=== PATIENT | male | born 1930 | race Caucasian/White ===

== ENCOUNTER 2018-12-01 14:02 | Inpatient (IN) | payer MEDICARE, OTHER ==
[2018-12-01] VITALS (9 sets, daily range): BP systolic 92–128; BP diastolic 53–88; PULSE 74–90; RESP 16–31; Ht 167.6 cm; Wt 75.0 kg
[~2018-12-01] VITALS: Ht 167.6 cm; Wt 75.0 kg
[2018-12-01] MEDS ORDERED: ACETAMINOPHEN 650 MG SUPP PR STA (14:15)
[2018-12-01] MEDS ORDERED: SODIUM CHLORIDE 0.9% 1L BAG IV* STA (14:15)
[2018-12-01] MEDS ORDERED: CEFEPIME 2GM/50 ML (PMX) 50 ML IVPB STA (14:15)
[2018-12-01] MEDS ORDERED: VANCOMYCIN 1 GM (PMX) 250 ML IVPB ONE (14:30)
--- NOTE | 2018-12-01 14:30 | ERD ---
ER Documentation Chief Complaint Chief Complaint BIBA FROM FACILITY D/T FEVERS, SOB, TACHYCARDIA HPI History is limited due to the patient's cognitive impairment and clinical condition is obtained entirely from EMS and review of half-way facility records. 88-year-old male history of hypertension, hyperlipidemia, severe dementia, coronary artery disease and osteoporosis presents to the ED via rescue ambulance for evaluation of fever and shortness of breath. This morning patient was found to be febrile given Tylenol orally but subsequently O2 saturations were in the 80s and he was noticeably dyspneic. Paramedics were called patient was placed on CPAP and transferred to the ED for further evaluation. Prior to this event patient was apparently in his usual state of health. Patient has no family and is a bermeo of the [facility]. FULL CODE STATUS. ROS Unobtainable except as per HPI due to the patient's cognitive impairment Medications Home Meds Reported Medications Ascorbic Acid (Vitamin C) 500 Mg Tab, 500 MG PO DAILY, TAB 12/01/18 Amlodipine Besylate* (Norvasc*) 2.5 Mg Tablet, 2.5 MG PO DAILY, TAB HOLD FOR SBP<110 HR<60 12/01/18 Multivit-Min/Iron Fum/Folic AC (Uzkmy-Eseoqyb-Ptdqwurx Tablet) 1 Each Tablet, 1 EACH PO DAILY, TAB 12/01/18 Magnesium Hydroxide* (Milk Of Magnesia*) 400 Mg/5 Ml Oral.susp, 30 ML PO Q24H for CONSTIPATION, ML 12/01/18 Mag Hydrox/Al Hydrox/Simeth (Maalox Advanced Suspension) 355 Ml Oral.susp, 30 ML PO Q4H 12/01/18 Ferrous Sulfate* (Ferrous Sulfate*) 325 Mg Tabec, 325 MG PO DAILY, TAB 12/01/18 Bisacodyl* (Dulcolax*) 5 Mg Tablet.dr, 10 MG PO Q24H PRN for CONSTIPATION, TAB 12/01/18 Divalproex Sodium* (Depakote* Sprinkle) 125 Mg Cap.sprink, 125 MG PO QHS, #90 CAP 12/01/18 Atorvastatin Calcium* (Atorvastatin Calcium*) 20 Mg Tablet, 20 MG PO QHS, #30 TAB 12/01/18 Acetaminophen* (Acetaminophen*) 325 Mg Tablet, 650 MG PO Q4H PRN for MILD PAIN LEVEL 1-3, #30 TAB AND TEMP 100F OR ABOVE 12/01/18 Allergies Allergies: Coded Allergies: No Known Allergy (Unverified , 12/01/18) PMhx/Soc Reviewed in chart. As per HPI. Resident of [facility] half-way facility. Hx Neurological Disorder: Yes (Severe vascular dementia) Hx Cardiac Disorders: Yes (Coronary artery disease) Hx Miscellaneous Medical Probl: Yes (Hyperlipidemia, osteoporosis) Hx Alcohol Use: No Hx Substance Use: No Hx Tobacco Use: No FmHx Unknown. Unobtainable due to the patient's cognitive impairment. Physical Exam Vitals Temp: 101.3. Pulse: 168. Respirations: 25. Blood pressure: 127/100. O2 saturation 100% on CPAP. Physical Exam Const: Severe distress Head: Atraumatic Eyes: Pupils equal react to light. Normal Conjunctiva ENT: Normal External Ears, Nose and Mouth. Mucous membranes are dry Neck: Supple. No JVD. No stridor. No meningismus. Resp: Breath sounds are diminished bilaterally with rare expiratory wheezing. No rales or rhonchi. Cardio: Tachycardic. Regular rate and rhythm, no murmurs Abd: Soft, non tender, non distended. Normal bowel sounds. No rebound or guarding. Skin: No petechiae or rashes Back: No midline or flank tenderness Ext: No cyanosis, or edema. No calf swelling or tenderness. Neur: Awake and alert. Uncooperative. Nonverbal. Plantar reflexes are downgoing. Physical examination is truncated due to the constraints imposed by the patient's cognitive impairment and clinical condition. Result Diagram: 12/06/18 0330 12/06/18 0330 Results 24 hrs Laboratory Tests Test 12/01/18 14:15 12/01/18 14:19 12/01/18 14:20 12/01/18 14:28 Blood Gas Blood arterial Specimen Source Arterial Blood 12/01/2018 2:50: Date Drawn 00 PM Arterial Blood 7.269 pH (Temp corrected ) Arterial Blood 46.4 mmhg pCO2 (Temp correct) Arterial Blood 220.0 mmHG pO2 (Temp corrected ) Arterial Blood 20.8 mmol/L HCO3 Arterial Blood -6.1 mmol/L Base Excess Arterial Blood 99.2 mmHG Oxygen Saturati on Leonardo Test ACCEPTAB Arterial Blood Right Radial Gas Puncture Site Arterial 0.3 % Blood Carboxyhe moglobin Arterial Blood 0.4 % Methemoglobin Blood Gas A-a 446.6 mmHg O2 Differential Oxyhemoglobin 98.5 % Percent Blood Gas 37.0 C Temperature Blood Gas 20.0 Respiration Rate Blood Gas 24 Actual Respiration Rat e Blood Gas MASK - BIPAP Modality FiO2 100.0 % Blood Gas 10 Pressure Support Blood Gas 15/5 IPAP/EPAP Ratio Blood Gas DR ABDALLA Critical Value Read Back Blood Gas RT Notified Whom Blood Gas 12/01/2018 3:05: Notified Time 00 PM White Blood 19.5 10^3/ul Count Red Blood Count 4.71 10^6/ul Hemoglobin 14.1 g/dl Hematocrit 44.9 % Mean 95.3 fl Corpuscular Volume Mean 29.9 pg Corpuscular Hemoglobin Mean 31.4 g/dl Corpuscular Hemoglobin Conc ent Red Cell 15.6 % Distribution Width Platelet Count 299 10^3/UL Mean Platelet 11.9 fl Volume Immature 0.700 % Granulocytes % Neutrophils % 88.8 % Lymphocytes % 7.1 % Monocytes % 3.1 % Eosinophils % 0.0 % Basophils % 0.3 % Nucleated Red 0.0 /100WBC Blood Cells % Immature 0.130 10^3/ul Granulocytes # Neutrophils # 17.3 10^3/ul Lymphocytes # 1.4 10^3/ul Monocytes # 0.6 10^3/ul Eosinophils # 0.0 10^3/ul Basophils # 0.1 10^3/ul Nucleated Red 0.0 10^3/ul Blood Cells # Prothrombin 15.3 Sec Time Prothrombin 1.2 Time Ratio INR 1.20 International Normalized Rati o Activated 34.2 Sec Partial Thrombo plast Time Sodium Level 145 mmol/L Potassium Level 4.6 mmol/L Chloride Level 107 mmol/L Carbon Dioxide 28 mmol/L Level Anion Gap 10 Blood Urea 46 mg/dl Nitrogen Creatinine 1.86 mg/dl Est Glomerular mL/min Filtrat Rate mL/min Glucose Level 141 mg/dl Calcium Level 9.7 mg/dl Total Bilirubin 0.8 mg/dl Direct 0.00 mg/dl Bilirubin Indirect 0.8 mg/dl Bilirubin Aspartate Amino 100 IU/L Transf (AST/SGO T) Alanine 50 IU/L Aminotransferas e (ALT/SGPT) Alkaline 205 IU/L Phosphatase Troponin I < 0.012 ng/ml Total Protein 8.5 g/dl Albumin 3.8 g/dl Globulin 4.70 g/dl Albumin/Globuli 0.80 n Ratio POC Venous 2.3 mmol/L Lactate Urine Color ALANA Urine Clarity TURBID Urine pH 5.0 Urine Specific 1.019 [place] Urine Ketones NEGATIVE mg/dL Urine Nitrite NEGATIVE mg/dL Urine Bilirubin NEGATIVE mg/dL Urine NEGATIVE mg/dL Urobilinogen Urine Leukocyte 3+ Dominique/ul Esterase Urine 65 /HPF Microscopic RBC Urine > 182 /HPF Microscopic WBC Urine Squamous FEW /HPF Epithelial Cell s Urine Bacteria MODERATE /HPF Urine 2+ mg/dL Hemoglobin Urine Glucose NEGATIVE mg/dL Urine Total 2+ mg/dl Protein B-Type 2100 PG/ML Natriuretic Peptide Valproic Acid < 10 ug/ml (Depakene) Level Test 12/01/18 16:26 Lactic Acid 1.9 mmol/L Level Current Medications Medications Dose Sig/Rogelio Start Time Status Last (Trade) Ordered Route PRN Stop Time Admin Dose Reason Admin Sodium 2,250 ml BOLUS OVER 2 12/01/18 DC 12/01/18 Chloride HOURS STAT 14:15 14:20 (NS) IV* 12/01/18 14:18 650 mg ONCE STAT 12/01/18 DC 12/01/18 Acetaminophen AR 14:15 14:25 (Tylenol 12/01/18 14:18 Supp) Cefepime HCl 50 ml @ ONCE STAT 12/01/18 DC 12/01/18 100 mls/hr IVPB 14:15 14:24 12/01/18 14:44 Vancomycin 250 ml @ ONCE ONCE 12/01/18 DC 12/01/18 HCl 125 mls/hr IVPB 14:30 15:00 12/01/18 16:29 Adenosine 2 ml @ ud STK-MED 12/01/18 DC ONCE .ROUTE 15:51 12/01/18 15:52 Adenosine 6 mg ONCE ONCE 12/01/18 DC 12/01/18 IV 16:00 16:00 12/01/18 16:01 Metoprolol 5 mg ONCE ONCE 12/01/18 DC 12/01/18 Tartrate IV 16:30 16:19 (Lopressor) 12/01/18 16:45 650 mg Q4H PRN 12/01/18 12/03/18 Acetaminophen PO MILD PAIN 16:30 17:07 (Tylenol LEVEL 1-3 Tab) Bisacodyl 10 mg Q24H PRN 12/01/18 (Dulcolax) PO 16:30 CONSTIPATION Magnesium 30 ml Q24H PO 12/01/18 12/04/18 Hydroxide 16:30 16:30 (Milk Of Mag) Sodium 1,000 ml @ [id number] IV 12/01/18 DC 12/02/18 Chloride 75 mls/hr 16:12 05:32 12/02/18 16:11 IV Flush 3 ml PER 12/01/18 (NS 3 ml) PROTOCOL IV 16:30 Ondansetron 4 mg Q6H PRN 12/01/18 HCl (Zofran IV 16:30 Inj) NAUSEA/VOMITI NG Docusate 100 mg Q12H PRN 12/01/18 Sodium PO 16:30 (Colace) .CONSTIPATION Magnesium 30 ml DAILY PRN 12/01/18 Hydroxide PO 16:30 (Milk Of Mag) .CONSTIPATION Procedures/MDM DOCUMENTS REVIEWED: ED nurse, main half-way facility records and EMS report EKG: Time: 14:57. Narrow complex tachycardia with occasional PVCs. Rate: 145. Right bundle branch block. No acute ST elevation or depression. My Interpretation IMAGING: PROCEDURE: XR Chest. CLINICAL INDICATION: Chest pain TECHNIQUE: Single frontal view of the chest was obtained COMPARISON: None FINDINGS: Atherosclerotic changes are seen in the aortic arch. The cardiac silhouette is unremarkable. There is patchy left basilar atelectasis. The lungs are otherwise clear. There is no pleural effusion or pneumothorax. The bones and soft tissue show no acute change. IMPRESSION: Patchy left basilar atelectasis. RPTAT:AAJJ Physician Arpan Date Time Electronically viewed and signed by Barrie Beard Physician on 12/01/2018 15:44 MC/ PROCEDURE: US Lower extremity Venous. CLINICAL INDICATION: Bilateral lower extremity pain and swelling, evaluate for DVT in this patient with chest pain TECHNIQUE: Multiple sonographic images of the bilateral lower extremity deep venous system were obtained utilizing grayscale, color-flow, compressive sonography and doppler imaging with augmentation. The images were reviewed on a PACS workstation. COMPARISON: None. FINDINGS: There is normal compressibility and flow within the bilateral common femoral, deep femoral, superficial femoral and popliteal veins. The deep veins of the calf were incompletely visualized. IMPRESSION: No sonographic evidence for deep venous thrombosis in the bilateral lower extremities. Ortiz Saini Physician Date Time Electronically viewed and signed by Ortiz Saini Physician on 12/01/2018 16:16 ML/ MEDICAL DECISION MAKIN-year-old male history of hypertension, hyperlipidemia, severe dementia, coronary artery disease and osteoporosis presents to the ED via rescue ambulance for evaluation of fever and shortness of breath. CBC significant for leukocytosis of 19.5 but no anemia or thrombocytopenia. Chemistry reveals elevated BUN/creatinine of 46/1.6 with hypernatremia 145 but no other electrolyte abnormalities. Urinalysis positive for pyuria consistent with urinary tract infection culture was pending. Chest x-ray remarkable for left basilar atelectasis but no acute infiltrates, effusions or congestive heart failure. Venous Doppler lower extremity negative for DVT. EKG showed narrow complex tachycardia with no acute ischemic changes. Etiology of the tachycardia was uncertain differential included A. fib/flutter and SVT. Adenosine 6 mg IV was given; he heart rate slowed down and the underlying rhythm appeared to be atrial fib/flutter which was treated with beta-blockers. Cardiology consultation from Dr. Anahy uribe was obtained in the ED. Admit to telemetry for further evaluation and management. . Patient's infectious symptoms have not stabilized and the patient is at risk of rapid decompensation. The patient will be admitted for careful hydration, antibiotic therapy, and infectious source control. Severe Sepsis criteria: Infectious source: UTI End organ damage indicated by: Lactate > 2.0 mmol/L Acute Resp Failure (sat < 92% w/o oxygen) Sepsis Management: Time of recognition of severe sepsis: 14:20 Within 3 hours of recognition: Blood cultures x 2 before broad-spectrum antibiotics: Yes 30 ml/kg NS bolus completed Initial lactate 2.3 mmol/L Repeat lactate 1.9 mmol/L Septic Shock Assessment: Any lactic acid > 4.0 No Persistent hypotension (SBP < 90 or 40 mmHg drop, MAP < 65) despite 30 mL/kg IV fluid bolus No A focused sepsis perfusion/reperfusion reassessment examination was performed post 30ml/kg bolus @16:20: Temp 100.8, BP 146/90, HR 149, RR 33, Pox 97% on BiPAP Persistent Hypotension Treatment: Comfort care No Hypotension caused by: pt. baseline, med-induced, erroneous value, condition other than infection No Refusal by patient/decision maker for: blood draw, IVF, Antibiotics, Pressors: No Central line Right subclavian Vasopressor started No I considered further perfusion assessment with CVP measurement, SCVO2, bedside ultrasound volume assessment, passive leg raise, trial of further fluid bolus and proceeded with normal saline fluid bolus. Central Line Placement by me: A time out was performed, appropriate hand hygiene was performed, the skin site was fully prepped and maximal sterile barrier technique was employed where the patient was sterilely draped, and the provider wore a mask and sterile gown and gloves. Anesthesia: 1% lidocaine locally Location: Subclavian Device: Multiple lumen Technique: Seldinger technique. Secured with suture. Results: Venous return from all ports with easy saline flush. No complications. Guide wire retrieved and disposed of. Chest X-ray 1V Interpreted by me: Central line in SVC, Normal soft tissue, No evidence of pneumothorax. Accepting Care Team Current data and ongoing care discussed. Time: 16:09. Care Transferred: Dr Ya Hewitt Rose Grading Supervisor(s): Dr Biggs Critical Care Time: 45 minutes Treatments/Evaluations: Close monitoring and treatment of unstable vital signs, cardiorespiratory, and neurologic status, while maintaining tight balance of fluid, respiratory, and cardiac interventions. This includes the administration of emergency fluid management while maintaining close respiratory support as well as the provision of immediate and broad-spectrum antibiotic therapy, while performing a simultaneous assessment for possible sources in order to direct targeted therapy. This time includes discussing the case with the patient and the patient's family. This time also includes the consideration for invasive and chemical support to prevent cardiopulmonary collapse. This time does not include all procedures stated elsewhere in this record. This time also includes reviewing old records, labs and radiological studies. This time includes examining and re-examining the patient. Additionally, this time also includes a rranging care with admitting and consulting physicians. ADDENDUM: Time: 17:30. While awaiting transfer to the intensive care unit patient became hypotensive unresponsive to aggressive fluid resuscitation and Levophed drip was started. Departure Diagnosis: Primary Impression: Septic shock Additional Impressions: Narrow complex tachycardia Urinary tract infection Urinary tract infection type: site unspecified Hematuria presence: without hematuria Qualified Codes: N39.0 - Urinary tract infection, site not specified Severe dementia Condition: Critical VALERIE ABDALLA MD Dec 01, 2018 14:30
[2018-12-01] MEDS ORDERED: ATOR20TA38 PO (14:35)
[2018-12-01] MEDS ORDERED: ACET325T45 PO (14:35)
[2018-12-01] MEDS ORDERED: DIVA125C16 PO (14:36)
[2018-12-01] MEDS ORDERED: BISA-57 PO (14:37)
[2018-12-01] MEDS ORDERED: FER325 PO (14:38)
[2018-12-01] MEDS ORDERED: MAGN400O19 PO (14:39)
[2018-12-01] MEDS ORDERED: MAG355OR14 PO (14:39)
[2018-12-01] MEDS ORDERED: MULT-876 PO (14:40)
[2018-12-01] MEDS ORDERED: AMLO2.5T2 PO (14:41)
[2018-12-01] MEDS ORDERED: ASC500 PO (14:42)
[2018-12-01] MEDS ORDERED: ADENOSINE 2 ML ONE (15:51)
[2018-12-01] MEDS ORDERED: ADENOSINE 3 MG/ML SYRINGE IV ONE (16:00)
[2018-12-01] MEDS ORDERED: ACETAMINOPHEN 325 MG TAB PO PRN (16:30)
[2018-12-01] MEDS ORDERED: METOPROLOL 5 MG INJ IV ONE (16:30)
[2018-12-01] MEDS ORDERED: DOCUSATE SODIUM 100 MG CAP PO PRN (16:30)
[2018-12-01] MEDS ORDERED: ONDANSETRON 4 MG INJ IV PRN (16:30)
[2018-12-01] MEDS ORDERED: BISACODYL (EC) 5 MG TAB PO PRN (16:30)
[2018-12-01] MEDS ORDERED: NACL 0.9% 3 ML SYG IV SCH (16:30)
[2018-12-01] MEDS ORDERED: MAGNESIUM HYDROXIDE 30ML CUP PO PRN (16:30)
[2018-12-01] MEDS: SOD CHLORIDE 0.9% 1,000 ML IV SCH (16:45)
--- NOTE | 2018-12-01 17:10 | CONS ---
Assessment/Plan Assessment/Plan Hospital Course (Demo Recall) Sepsis with possible early shock Borderline blood pressure/hypotension Tachycardia, likely atrial flutter/fibrillation Encephalopathy Renal dysfunction Respiratory failure Patient presented with altered mental status, respiratory failure, tachycardia and concern for sepsis Rhythm appears atrial flutter/fibrillation Of importance is treating patient sepsis, volume resuscitation, antibiotics Given patient currently with hypotension and concern for shock, would DC all antihypertensives Check echocardiogram Consultation Date/Type/Reason Admit Date/Time Type of Consult Cardiology Reason for Consultation Tachycardia Date/Time of Note DATE: 12/01/18 TIME: 17:04 Hx of Present Illness This is an 88-year-old male from [facility] who was brought to the emergency room secondary to altered mental status, respiratory distress, hypotension and tachycardia. Patient has been placed on BiPAP and receiving IV boluses. Patient has been tachycardic. Patient was given adenosine with decrease in heart rates but still with tachycardia. Cardiology condition was requested for assistance with management. Unable to be performed at the current time given patient's mental status Past Medical History Dementia Medical History: high cholesterol, hypertension Home Meds Reported Medications Ascorbic Acid (Vitamin C) 500 Mg Tab, 500 MG PO DAILY, TAB 12/01/18 Amlodipine Besylate* (Norvasc*) 2.5 Mg Tablet, 2.5 MG PO DAILY, TAB HOLD FOR SBP<110 HR<60 12/01/18 Multivit-Min/Iron Fum/Folic AC (Uoytb-Zxzjnlm-Ovokvtlm Tablet) 1 Each Tablet, 1 EACH PO DAILY, TAB 12/01/18 Magnesium Hydroxide* (Milk Of Magnesia*) 400 Mg/5 Ml Oral.susp, 30 ML PO Q24H for CONSTIPATION, ML 12/01/18 Mag Hydrox/Al Hydrox/Simeth (Maalox Advanced Suspension) 355 Ml Oral.susp, 30 ML PO Q4H 12/01/18 Ferrous Sulfate* (Ferrous Sulfate*) 325 Mg Tabec, 325 MG PO DAILY, TAB 12/01/18 Bisacodyl* (Dulcolax*) 5 Mg Tablet.dr, 10 MG PO Q24H PRN for CONSTIPATION, TAB 12/01/18 Divalproex Sodium* (Depakote* Sprinkle) 125 Mg Cap.sprink, 125 MG PO QHS, #90 CAP 12/01/18 Atorvastatin Calcium* (Atorvastatin Calcium*) 20 Mg Tablet, 20 MG PO QHS, #30 TAB 7/14/19 Acetaminophen* (Acetaminophen*) 325 Mg Tablet, 650 MG PO Q4H PRN for MILD PAIN LEVEL 1-3, #30 TAB AND TEMP 100F OR ABOVE 12/01/18 Medications Current Medications Acetaminophen (Tylenol Tab) 650 mg Q4H PRN PO MILD PAIN LEVEL 1-3; Start 12/01/18 at 16:30 Amlodipine Besylate (Norvasc) 2.5 mg DAILY PO ; Start 12/02/18 at 09:00 Ascorbic Acid (Vitamin C) 500 mg DAILY PO ; Start 12/02/18 at 09:00 Atorvastatin Calcium (Lipitor) 20 mg QHS PO ; Start 12/01/18 at 21:00 Bisacodyl (Dulcolax) 10 mg Q24H PRN PO CONSTIPATION; Start 12/01/18 at 16:30 Divalproex Sodium (Depakote Sprinkle) 125 mg QHS PO ; Start 12/01/18 at 21:00 Ferrous Sulfate (Ferrous Sulfate (Ec)) 325 mg DAILY PO ; Start 12/02/18 at 09:00 Magnesium Hydroxide (Milk Of Mag) 30 ml Q24H PO ; Start 12/01/18 at 16:30 Multivitamins/ Minerals (Theragran-M) 1 tab DAILY PO ; Start 12/02/18 at 09:00 Sodium Chloride 1,000 ml @ 75 mls/hr [id number] IV ; Start 12/01/18 at 16:12; Stop 12/02/18 at 16:11 IV Flush (NS 3 ml) 3 ml PER PROTOCOL IV ; Start 12/01/18 at 16:30 Ondansetron HCl (Zofran Inj) 4 mg Q6H PRN IV NAUSEA/VOMITING; Start 12/01/18 at 16:30 Docusate Sodium (Colace) 100 mg Q12H PRN PO .CONSTIPATION; Start 12/01/18 at 16:30 Magnesium Hydroxide (Milk Of Mag) 30 ml DAILY PRN PO .CONSTIPATION; Start 12/01/18 at 16:30 Enoxaparin Sodium (Lovenox) 30 mg DAILY SC ; Start 12/02/18 at 09:00 Cefepime HCl 50 ml @ 100 mls/hr DAILY IV ; Start 12/02/18 at 09:00 Allergies: Coded Allergies: No Known Allergy (Unverified , 12/01/18) Social History Other Social History From [facility] facility Exam/Review of Systems Vital Signs Vitals Vital Signs Date Temp Pulse Resp B/P (MAP) Pulse Ox O2 O2 Flow FiO2 Time Delivery Rate 12/01/18 98.5 134 35 106/80 98 BIPAP 16:30 (89) Exam Exam On BiPAP, not responding to name, altered Head: normocephalic Respiratory: other (Coarse breath sounds bilaterally, no wheezing) Cardiovascular: regular rate and rhythm (Tachycardic) Gastrointestinal: soft, bowel sounds, other (No grimacing with palpation) Extremities: other (No significant edema) Labs Result Diagram: 12/01/18 1419 12/01/18 1419 Results 24hrs Laboratory Tests Test 12/01/18 14:19 12/01/18 14:20 12/01/18 14:28 White Blood Count 19.5 H Red Blood Count 4.71 Hemoglobin 14.1 Hematocrit 44.9 Mean Corpuscular Volume 95.3 Mean Corpuscular Hemoglobin 29.9 Mean Corpuscular Hemoglobin Concent 31.4 L Red Cell Distribution Width 15.6 H Platelet Count 299 Mean Platelet Volume 11.9 H Immature Granulocytes % 0.700 H Neutrophils % 88.8 H Lymphocytes % 7.1 L Monocytes % 3.1 Eosinophils % 0.0 Basophils % 0.3 Nucleated Red Blood Cells % 0.0 Immature Granulocytes # 0.130 H Neutrophils # 17.3 H Lymphocytes # 1.4 Monocytes # 0.6 Eosinophils # 0.0 Basophils # 0.1 Nucleated Red Blood Cells # 0.0 Prothrombin Time 15.3 H Prothrombin Time Ratio 1.2 INR International Normalized Ratio 1.20 Activated Partial Thromboplast Time 34.2 Sodium Level 145 H Potassium Level 4.6 Chloride Level 107 Carbon Dioxide Level 28 Anion Gap 10 Blood Urea Nitrogen 46 H Creatinine 1.86 H Est Glomerular Filtrat Rate mL/min Glucose Level 141 Calcium Level 9.7 Total Bilirubin 0.8 Direct Bilirubin 0.00 Indirect Bilirubin 0.8 Aspartate Amino Transf (AST/SGOT) 100 H Alanine Aminotransferase (ALT/SGPT) 50 Alkaline Phosphatase 205 H Troponin I < 0.012 Total Protein 8.5 H Albumin 3.8 Globulin 4.70 H Albumin/Globulin Ratio 0.80 POC Venous Lactate 2.3 *H Urine Color ALANA Urine Clarity TURBID A Urine pH 5.0 Urine Specific [place] 1.019 Urine Ketones NEGATIVE Urine Nitrite NEGATIVE Urine Bilirubin NEGATIVE Urine Urobilinogen NEGATIVE Urine Leukocyte Esterase 3+ H Urine Microscopic RBC 65 H Urine Microscopic WBC > 182 H Urine Squamous Epithelial Cells FEW Urine Bacteria MODERATE Urine Hemoglobin 2+ H Urine Glucose NEGATIVE Urine Total Protein 2+ H B-Type Natriuretic Peptide 2100 H Valproic Acid (Depakene) Level < 10 L Imaging Imaging ECG with heart rates 140s 150s, QRS 116 ms, nonspecific ST abnormalities, after PVC it appears flutter/fib Telemetry reviewed in the emergency room, appears atrial flutter/fib Medications Medications Current Medications Acetaminophen (Tylenol Tab) 650 mg Q4H PRN PO MILD PAIN LEVEL 1-3; Start 12/01/18 at 16:30 Amlodipine Besylate (Norvasc) 2.5 mg DAILY PO ; Start 12/02/18 at 09:00 Ascorbic Acid (Vitamin C) 500 mg DAILY PO ; Start 12/02/18 at 09:00 Atorvastatin Calcium (Lipitor) 20 mg QHS PO ; Start 12/01/18 at 21:00 Bisacodyl (Dulcolax) 10 mg Q24H PRN PO CONSTIPATION; Start 12/01/18 at 16:30 Divalproex Sodium (Depakote Sprinkle) 125 mg QHS PO ; Start 12/01/18 at 21:00 Ferrous Sulfate (Ferrous Sulfate (Ec)) 325 mg DAILY PO ; Start 12/02/18 at 09:00 Magnesium Hydroxide (Milk Of Mag) 30 ml Q24H PO ; Start 12/01/18 at 16:30 Multivitamins/ Minerals (Theragran-M) 1 tab DAILY PO ; Start 12/02/18 at 09:00 Sodium Chloride 1,000 ml @ 75 mls/hr [id number] IV ; Start 12/01/18 at 16:12; Stop 12/02/18 at 16:11 IV Flush (NS 3 ml) 3 ml PER PROTOCOL IV ; Start 12/01/18 at 16:30 Ondansetron HCl (Zofran Inj) 4 mg Q6H PRN IV NAUSEA/VOMITING; Start 12/01/18 at 16:30 Docusate Sodium (Colace) 100 mg Q12H PRN PO .CONSTIPATION; Start 12/01/18 at 16:30 Magnesium Hydroxide (Milk Of Mag) 30 ml DAILY PRN PO .CONSTIPATION; Start 12/01/18 at 16:30 Enoxaparin Sodium (Lovenox) 30 mg DAILY SC ; Start 12/02/18 at 09:00 Cefepime HCl 50 ml @ 100 mls/hr DAILY IV ; Start 12/02/18 at 09:00 Manoj Biggs DO Dec 01, 2018 17:09
[2018-12-01] MEDS ORDERED: SOD CHLORIDE 0.9% 1,000 ML IV STA (17:20)
--- NOTE | 2018-12-01 17:54 | HP ---
Date/Time of Note Date/Time of Note DATE: 12/01/18 TIME: 17:16 Assessment/Plan VTE Prophylaxis SCD applied (from Nsg): Yes Pharmacological prophylaxis: LMWH Lines/Catheters IV Catheter Type (from Nrsg): Saline Lock Assessment/Plan Assessment/Plan 1. Severe sepsis secondary to UTI - patient was febrile upon presentation with tachycardia - UA noted and started on broad spectrum antibiotics - Gentle IVF started given elevated BNP - ID consulted for antibiotic recommendations - chávez cultures ordered - lactic acid normalized 2. Arrhythmia - seen on EKG - Cardiology consultation appreciated - ECHO ordered 3. MORTEZA - most likely secondary to ATN and prerenal - will continue IV hydration - will renally dose medications - renal US ordered 4. elevated BNP - does not appear fluid overloaded - ECHO ordered to assess EF 5. UTI - UA noted - urine culture ordered - broad spectrum antibiotic started - ID consulted 6. Acute respiratory distress - on BIPAP and wean as tolerated 7. HTN - hold antihypertensives given BP now running low 8. dementia 9. Depression - on depakote 10. Diet - will order speech evaluation 11. Code status - Full Code 12. Disposition - Admit to ICU for close monitoring given Severe sepsis with possible need for pressor support. Result Diagram: 12/01/18 1419 12/01/18 1419 Results 24hrs Laboratory Tests Test 12/01/18 14:19 12/01/18 14:20 12/01/18 14:28 12/01/18 16:26 White Blood Count 19.5 H Red Blood Count 4.71 Hemoglobin 14.1 Hematocrit 44.9 Mean Corpuscular 95.3 Volume Mean Corpuscular 29.9 Hemoglobin Mean Corpuscular 31.4 L Hemoglobin Concent Red Cell 15.6 H Distribution Width Platelet Count 299 Mean Platelet Volume 11.9 H Immature 0.700 H Granulocytes % Neutrophils % 88.8 H Lymphocytes % 7.1 L Monocytes % 3.1 Eosinophils % 0.0 Basophils % 0.3 Nucleated Red Blood 0.0 Cells % Immature 0.130 H Granulocytes # Neutrophils # 17.3 H Lymphocytes # 1.4 Monocytes # 0.6 Eosinophils # 0.0 Basophils # 0.1 Nucleated Red Blood 0.0 Cells # Prothrombin Time 15.3 H Prothrombin Time 1.2 Ratio INR International 1.20 Normalized Ratio Activated 34.2 Partial Thromboplast Time Sodium Level 145 H Potassium Level 4.6 Chloride Level 107 Carbon Dioxide Level 28 Anion Gap 10 Blood Urea Nitrogen 46 H Creatinine 1.86 H Est Glomerular Filtrat Rate mL/min Glucose Level 141 Calcium Level 9.7 Total Bilirubin 0.8 Direct Bilirubin 0.00 Indirect Bilirubin 0.8 Aspartate Amino 100 H Transf (AST/SGOT) Alanine 50 Aminotransferase (AL T/SGPT) Alkaline Phosphatase 205 H Troponin I < 0.012 Total Protein 8.5 H Albumin 3.8 Globulin 4.70 H Albumin/Globulin 0.80 Ratio POC Venous Lactate 2.3 *H Urine Color ALANA Urine Clarity TURBID A Urine pH 5.0 Urine Specific 1.019 [place] Urine Ketones NEGATIVE Urine Nitrite NEGATIVE Urine Bilirubin NEGATIVE Urine Urobilinogen NEGATIVE Urine Leukocyte 3+ H Esterase Urine Microscopic 65 H RBC Urine Microscopic > 182 H WBC Urine Squamous FEW Epithelial Cells Urine Bacteria MODERATE Urine Hemoglobin 2+ H Urine Glucose NEGATIVE Urine Total Protein 2+ H B-Type Natriuretic 2100 H Peptide Valproic Acid < 10 L (Depakene) Level Lactic Acid Level 1.9 HPI/ROS Admit Date/Time Admit Date/Time 12/01/18 Hx of Present Illness 88 yo M with PMH HTN, CAD, dementia, depression, HLD, and osteoarthritis presented from SNF for shortness of breath and fevers. Patient is currently on BIPAP and unable to obtain history given severe dementia. Patient is noted to have no family and a bermeo of the [facility]. History obtained from ER physician and reviewed of SNF records. Patient was found to be febrile this am and given Tylenol with mild improvement. He was also noted to be hypoxic and dyspneic. Patient was placed on CPAP and transferred to ER. In the ED patient was noted with fever and tachycardia. He was unable to give any history and mouth contracted open. Per records patient usually takes PO. Patient was given adenosine as well as beta carlos with no improvement in rate. He remained on BiPAP and BP was slightly low with concern for possible shock. ROS All 12 systems reviewed and pertinent positives as per HPI. All others negative. Unable to fully obtain ROS given altered mental status Subjective hx not possible: pt non-verbal, pt critical status Constitutional: disoriented Respiratory: shortness of breath; No wheezing PMH/Family/Social Past Medical History Medical History: coronary artery disease, high cholesterol, hypertension, other (dementia, osteoarthritis) Medications Current Medications Vancomycin HCl 250 ml @ 125 mls/hr ONCE ONCE IVPB Last administered on 12/01/18at 15:00; Start 12/01/18 at 14:30; Stop 12/01/18 at 16:29 Metoprolol Tartrate (Lopressor) 5 mg ONCE ONCE IV ; Start 12/01/18 at 16:30; Stop 12/01/18 at 16:31 Coded Allergies: No Known Allergy (Unverified , 12/01/18) Past Surgical History Past Surgical Hx: other (unknown) Family History Significant Family History: no pertinent family hx Social History Alcohol Use: other Smoking Status: Unknown if ever smoked Drug Use: other Exam/Review of Systems Vital Signs Vitals Vital Signs Date Temp Pulse Resp B/P (MAP) Pulse Ox O2 O2 Flow FiO2 Time Delivery Rate 12/01/18 101.3 14:25 12/01/18 156 29 127/100 100 14:09 (109) 12/01/18 Non 14:07 Rebreathe r Exam Exam General: Patient is lying in bed, nonverbal, BIPAP in place. not following commands HEENT: Atraumatic, normocephalic. The pupils are equal, round and reactive. Extraocular motor are intact, Neck: Supple with full range of motion. Chest: Nontender Lungs: Diminished bilaterally. no wheezing appreciated Heart: Normal S1-S2, irregular rate and rhythm. No murmur, S3, or S4 Abdomen: Soft , nontender, nondistended , bowel sounds are present. No guarding no rebound tenderness , No masses or organomegaly. No costovertebral temporal angle mass Extremities: Normal to inspection, no edema no cyanosis Neurologic: unable to assess Skin: no rashes or lesions appreciated. Additional Comments Home medications reviewed CATHERINE RENAE MD Dec 01, 2018 17:27
[2018-12-01] MEDS ORDERED: ALBUTEROL 0.083% (NEB) 2.5 MG/3 ML AMP HHN PRN (18:00)
[2018-12-01] MEDS ORDERED: NORepinephrine 8MG/250 ML (PMX 250 ML IV STA (18:35)
[2018-12-01] MEDS ORDERED: AMIODARONE 900 MG in DEXTROSE 5% 482 ML IV SCH (19:30)
[2018-12-01] MEDS ORDERED: AMIODARONE 150MG/D5W BOLUS 100 ML IV ONE (19:30)
[2018-12-01] MEDS ORDERED: LORAZEPAM 2 MG INJ IV ONE (20:00)
[2018-12-01] MEDS: MAGNESIUM HYDROXIDE 30ML CUP PO SCH (20:16)
[2018-12-01] MEDS ORDERED: ATORVASTATIN 20 MG TAB PO SCH (21:00)
[2018-12-01] MEDS ORDERED: DIVALPROEX SPRINKLE 125 MG CAP PO SCH (21:00)
--- NOTE | 2018-12-01 21:28 | CONS ---
DATE OF ADMISSION: 12/01/2018 DATE OF CONSULTATION: 12/01/2018 REASON FOR CONSULTATION: Antibiotic management. HISTORY OF PRESENT ILLNESS: Shlomo Daly is an 88-year-old male who is brought in from [facility] with fever, shortness of breath and tachycardia. His past problems include: 1. Hypertension. 2. Hyperlipidemia. 3. Severe dementia. 4. Coronary artery disease. 5. Osteoporosis. He presented to the emergency room for evaluation of fever and shortness of breath. He was found to be afebrile and was given Tylenol orally but his oxygen saturations were in the 80s and he was notabl y dyspneic. The patient was placed on CPAP by the paramedics, transferred to the ED for evaluation. He is a bermeo of the [facility] and is full code. PAST MEDICAL HISTORY: Essentially as outlined. FAMILY HISTORY: Noncontributory. SOCIAL HISTORY: He does not smoke, drink or abuse drugs. ALLERGIES: NONE TO PENICILLIN, SULFA OR FOODS. MEDICATIONS: Per chart. REVIEW OF SYSTEMS: As per HPI. PHYSICAL EXAMINATION: GENERAL: The patient is in severe respiratory distress. VITAL SIGNS: T-max of 101.3. His pulse is up to 168. His blood pressure is 127/100 and the patient was placed on BiPAP. SKIN: Without generalized rash. HEENT: Within normal limits. NECK: Supple. LYMPH NODES: None palpable. CHEST: Decreased breath sounds at the bases with expiratory wheezes. HEART: Tachycardic, regular rhythm without murmurs. ABDOMEN: Soft, nontender, without organosplenomegaly or masses. EXTREMITIES: Without cyanosis, clubbing, or edema. RECTAL AND GENITAL: Exams deferred. NEUROLOGIC: No focal neurological abnormalities. LABORATORY DATA: White count is 19.5, H and H of 14.1 and 44.9, platelet count 299,000 with 89% neut rophils. BUN and creatinine 46/1.86. Urinalysis shows 3+ leukocyte esterase and greater than 182 wh ite cells per high powered field. The patient was started on vancomycin and cefepime. His EKG showe d tachycardia with occasional PVCs and right bundle branch block. Chest x-ray shows patchy left basi lar atelectasis. Venous ultrasound shows no evidence of deep vein thrombophlebitis. IMPRESSION AND PLAN: The patient has essentially a urinary tract infection with sepsis. He may also have pneumonia or aspiration pneumonia. I concur with vancomycin and cefepime and a right central l ine was placed and is in good position. A renal ultrasound is unremarkable. We will continue him on vancomycin and cefepime. He should be no code and we can see whether we can do anything with the st ate with regards to his code status. In the meantime, he is going to go to the ICU. Dictated By: ELSY PIERRE MD, JD/ANTONIO Conf#: [id number] DID#: [id number]
[2018-12-01] MEDS ORDERED: VANCOMYCIN IV PER PHARMACY XX SCH (21:30)
[2018-12-01] MEDS ORDERED: SOD CHLORIDE 0.9% 500 ML IV ONE (21:30)
[2018-12-02] VITALS (44 sets, daily range): BP systolic 86–175; BP diastolic 55–102; PULSE 70–119; RESP 18–33
[2018-12-02] MEDS: PIPER-TAZO 3.375 GM IV (PMX) 100 ML IVPB SCH ×4 (01:11→21:42)
[2018-12-02] MEDS: SOD CHLORIDE 0.9% 1,000 ML IV SCH (05:32)
[2018-12-02] MEDS ORDERED: ASCORBIC ACID 500 MG TAB PO SCH (09:00)
[2018-12-02] MEDS ORDERED: FERROUS SULFATE (EC) 325 MG TAB PO SCH (09:00)
[2018-12-02] MEDS ORDERED: AMLODIPINE 2.5 MG TAB PO SCH (09:00)
[2018-12-02] MEDS ORDERED: CEFEPIME 1GM/50 ML (PMX) 50 ML IV SCH (09:00)
[2018-12-02] MEDS ORDERED: MULTIVITAMINS/MINERALS TAB PO SCH (09:00)
--- NOTE | 2018-12-02 09:10 | PN ---
Date/Time of Note Date/Time of Note DATE: 12/02/18 TIME: 09:10 Objective Vitals Vital Signs Date Temp Pulse Resp B/P (MAP) Pulse Ox O2 O2 Flow FiO2 Time Delivery Rate 12/02/18 95 32 167/102 93 08:00 (123) 12/02/18 101.4 08:00 12/02/18 Nasal 3.0 07:00 Cannula 12/01/18 50 21:50 Intake and Output 12/01/18 12/01/18 12/02/18 1515:00 23:00 07:00 IntakeIntake Total 50 ml 3882.3 ml 1445 ml OutputOutput Total 210 ml 585 ml BalanceBalance 50 ml 3672.3 ml 860 ml Results Result Diagram: 12/02/18 0500 12/02/18 0500 Medications Medications Current Medications Acetaminophen (Tylenol Tab) 650 mg Q4H PRN PO MILD PAIN LEVEL 1-3; Start 12/01/18 at 16:30 Bisacodyl (Dulcolax) 10 mg Q24H PRN PO CONSTIPATION; Start 12/01/18 at 16:30 Divalproex Sodium (Depakote Sprinkle) 125 mg QHS PO ; Start 12/01/18 at 21:00 Ferrous Sulfate (Ferrous Sulfate (Ec)) 325 mg DAILY PO ; Start 12/02/18 at 09:00 Magnesium Hydroxide (Milk Of Mag) 30 ml Q24H PO ; Start 12/01/18 at 16:30 Multivitamins/ Minerals (Theragran-M) 1 tab DAILY PO ; Start 12/02/18 at 09:00 Sodium Chloride 1,000 ml @ 75 mls/hr [id number] IV Last administered on 12/02/18at 05:32; Admin Dose 75 MLS/HR; Start 12/01/18 at 16:12; Stop 12/02/18 at 16:11 IV Flush (NS 3 ml) 3 ml PER PROTOCOL IV ; Start 12/01/18 at 16:30 Ondansetron HCl (Zofran Inj) 4 mg Q6H PRN IV NAUSEA/VOMITING; Start 12/01/18 at 16:30 Docusate Sodium (Colace) 100 mg Q12H PRN PO .CONSTIPATION; Start 12/01/18 at 16:30 Magnesium Hydroxide (Milk Of Mag) 30 ml DAILY PRN PO .CONSTIPATION; Start 12/01/18 at 16:30 Enoxaparin Sodium (Lovenox) 30 mg DAILY SC ; Start 12/02/18 at 09:00 Albuterol (Proventil 0.083% (Neb)) 2.5 mg Q2H RESP THERAPY PRN HHN SHORTNESS OF BREATH; Start 12/01/18 at 18:00 Norepinephrine 250 ml @ 7.5 mls/hr ONCE STAT IV Last administered on 12/01/18 at 18:50; Admin Dose 7.5 MLS/HR; Start 12/01/18 at 18:35; Stop 12/03/18 at 03:54 Amiodarone HCl 900 mg/Dextrose 500 ml @ 0 mls/hr Q0M IV Last administered on 12/01/18at 20:02; Admin Dose 33.3 MLS/HR; Start 12/01/18 at 19:30 Piperacillin Sod/ Tazobactam Sod 100 ml @ 200 mls/hr Q8 IVPB Last administered on 12/02/18at 06:40; Admin Dose 200 MLS/HR; Start 12/01/18 at 22:00 Vancomycin HCl (Vanco Iv Per Pharmacy) VANCOMYCIN PER PHARMACY PER PROTOCOL XX ; Start 12/01/18 at 21:30 Vancomycin HCl 250 ml @ 125 mls/hr Q24H IVPB ; Start 12/02/18 at 12:00 VTE Prophylaxis SCD applied (from Nsg): Yes Lines/Catheters IV Catheter Type: Early in Place: Yes Cont'd early catheter reason: terminal illness/intractable pain Assessment/Plan Hospital Course Subjective Patient still encephalopathic, now off BiPAP and pressors, on nasal cannula with mouth wide open, nursing staff stated that they had to do significant oral hygiene care including mucus secretions suctioning. Objective Physical exam General: Patient is laying in bed, on nasal cannula Mentation: Patient is arousable but not oriented Head: Normocephalic atraumatic Eyes: EOMI, but very difficult to assess as patient tightly close his eyes Neck: Supple, nontender, midline Respiratory: Coarse to auscultation bilaterally Cardiovascular: regular rate, no obvious murmurs Gastrointestinal: non-tender to palpation, bowel sounds heard. Neurological: Moves all extremities spontaneously to noxious stimuli but no coordinated movement for now Skin: No new skin lesions Assessment/Plan septic shock secondary to UTI/?PNA -IV antibiotic, broad-spectrum, infectious disease on board -Pending culture results -Now off pressors Acute on chronic encephalopathy -Patient's baseline is unknown, staff will contact fdc facility -Patient likely was able to feed himself as he does not have a PEG tube however will confirm -Patient also probably has moderate to severe dementia as there is likely a conservator involved -This is likely due to above septic shock however will get CT head once stable Arrhythmia, likely afib-aflutter - seen on EKG - Cardiology consultation appreciated - ECHO ordered MORTEZA -Resolved -Continue volume status, monitor closely, if worsens will consult nephrology elevated BNP -Patient's chest x-ray does show some pulmonary edema, will defer to cardiology for the recommendations -Pulmonology also on board UTI - UA noted - urine culture ordered - broad spectrum antibiotic started - ID consulted Acute respiratory distress -Now off BiPAP -Pulmonology consulted, HTN - hold antihypertensives given BP was low due to septic shock, restart when blood pressure is more stable dementia -Staff will confirm with fdc facility the degree of dementia Depression? - on depakote, will cont IV Diet - will order speech evaluation -NG tube in the meantime as patient is still encephalopathic Code status - Full Code Disposition -Continue ICU care, patient just off pressors, work-up pending -More than 40 minutes of critical care time was spent on this evaluation QASIM HWANG Dec 02, 2018 09:10
[2018-12-02] MEDS ORDERED: ACETAMINOPHEN 1000MG/100ML IV 100 ML IVPB PRN (09:30)
--- NOTE | 2018-12-02 09:34 | CONS ---
Assessment/Plan Assessment/Plan Assessment/Plan (Daily) Chest x-ray was reviewed from admission which is showing mild CHF. UA is grossly positive for UTI. Patient is currently on amiodarone drip at 0.5 mg/min. Assessment and recommendations; 1. Patient admitted for sepsis due to UTI. Currently on appropriate antimicrobial regimen. 2. History of apparent dementia. 3. Mild CHF. 4. History of seizure disorder. 5. Acute renal injury with improving renal function. 6. Cardiac arrhythmia. Patient currently in sinus rhythm. 7. Interval resolution of hypotension. Patient off Levophed. Continue current supportive care. Obtain follow-up chest x-ray in 24 hours. To new IV hydration. skilled nursing to be called for information regarding patient's baseline mental status. Consultation Date/Type/Reason Admit Date/Time 12/01/18 Date of Consultation: Dec 02, 2018 Type of Consult Pulmonary/critical care Patient is a 88-year-old male who was transferred over from [facility] to the hospital because of altered mental status. Patient has been diagnosed with sepsis due to UTI as well as cardiac arrhythmia. Was a time I saw him in ICU, patient is on nasal cannula but is noncommunicative. History is been obtained from medical records. Patient did not appear to be in any distress. Past medical history; 1. Apparent dementia. 2. Anemia 3. History of seizure disorder. Medications; reviewed. Allergies; none. Social history, family history, occupational history is are not available. Review of system; unable to be obtained. General exam; elderly male, noncommunicative. Currently no distress. Date/Time of Note DATE: 12/02/18 TIME: 09:31 Past Medical History Medical History: coronary artery disease, high cholesterol, hypertension, other (dementia, osteoarthritis) Home Meds Reported Medications Ascorbic Acid (Vitamin C) 500 Mg Tab, 500 MG PO DAILY, TAB 12/01/18 Amlodipine Besylate* (Norvasc*) 2.5 Mg Tablet, 2.5 MG PO DAILY, TAB HOLD FOR SBP<110 HR<60 12/01/18 Multivit-Min/Iron Fum/Folic AC (Mykzc-Uocjpln-Iyqsbutu Tablet) 1 Each Tablet, 1 EACH PO DAILY, TAB 12/01/18 Magnesium Hydroxide* (Milk Of Magnesia*) 400 Mg/5 Ml Oral.susp, 30 ML PO Q24H for CONSTIPATION, ML 12/01/18 Mag Hydrox/Al Hydrox/Simeth (Maalox Advanced Suspension) 355 Ml Oral.susp, 30 ML PO Q4H 12/01/18 Ferrous Sulfate* (Ferrous Sulfate*) 325 Mg Tabec, 325 MG PO DAILY, TAB 12/01/18 Bisacodyl* (Dulcolax*) 5 Mg Tablet.dr, 10 MG PO Q24H PRN for CONSTIPATION, TAB 12/01/18 Divalproex Sodium* (Depakote* Sprinkle) 125 Mg Cap.sprink, 125 MG PO QHS, #90 CAP 12/01/18 Atorvastatin Calcium* (Atorvastatin Calcium*) 20 Mg Tablet, 20 MG PO QHS, #30 TAB 12/01/18 Acetaminophen* (Acetaminophen*) 325 Mg Tablet, 650 MG PO Q4H PRN for MILD PAIN LEVEL 1-3, #30 TAB AND TEMP 100F OR ABOVE 12/01/18 Medications Current Medications Acetaminophen (Tylenol Tab) 650 mg Q4H PRN PO MILD PAIN LEVEL 1-3; Start 12/01/18 at 16:30 Bisacodyl (Dulcolax) 10 mg Q24H PRN PO CONSTIPATION; Start 12/01/18 at 16:30 Ferrous Sulfate (Ferrous Sulfate (Ec)) 325 mg DAILY PO ; Start 12/02/18 at 09:00 Magnesium Hydroxide (Milk Of Mag) 30 ml Q24H PO ; Start 12/01/18 at 16:30 Multivitamins/ Minerals (Theragran-M) 1 tab DAILY PO ; Start 12/02/18 at 09:00 Sodium Chloride 1,000 ml @ 75 mls/hr [id number] IV Last administered on 12/02/18at 05:32; Admin Dose 75 MLS/HR; Start 12/01/18 at 16:12; Stop 12/02/18 at 16:11 IV Flush (NS 3 ml) 3 ml PER PROTOCOL IV ; Start 12/01/18 at 16:30 Ondansetron HCl (Zofran Inj) 4 mg Q6H PRN IV NAUSEA/VOMITING; Start 12/01/18 at 16:30 Docusate Sodium (Colace) 100 mg Q12H PRN PO .CONSTIPATION; Start 12/01/18 at 16:30 Magnesium Hydroxide (Milk Of Mag) 30 ml DAILY PRN PO .CONSTIPATION; Start 12/01/18 at 16:30 Enoxaparin Sodium (Lovenox) 30 mg DAILY SC ; Start 12/02/18 at 09:00 Albuterol (Proventil 0.083% (Neb)) 2.5 mg Q2H RESP THERAPY PRN HHN SHORTNESS OF BREATH; Start 12/01/18 at 18:00 Norepinephrine 250 ml @ 7.5 mls/hr ONCE STAT IV Last administered on 12/01/18at 18:50; Admin Dose 7.5 MLS/HR; Start 12/01/18 at 18:35; Stop 12/03/18 at 03:54 Amiodarone HCl 900 mg/Dextrose 500 ml @ 0 mls/hr Q0M IV Last administered on 12/01/18at 20:02; Admin Dose 33.3 MLS/HR; Start 12/01/18 at 19:30 Piperacillin Sod/ Tazobactam Sod 100 ml @ 200 mls/hr Q8 IVPB Last administered on 12/02/18at 06:40; Admin Dose 200 MLS/HR; Start 12/01/18 at 22:00 Vancomycin HCl (Vanco Iv Per Pharmacy) VANCOMYCIN PER PHARMACY PER PROTOCOL XX ; Start 12/01/18 at 21:30 Vancomycin HCl 250 ml @ 125 mls/hr Q24H IVPB ; Start 12/02/18 at 12:00 Valproate Sodium 125 mg/Sodium Chloride 51.25 ml @ 55 mls/hr QHS IVPB ; Start 12/02/18 at 21:00 Acetaminophen 100 ml @ 400 mls/hr Q6H PRN IVPB pain/fever over 100.4F; Start 12/02/18 at 09:30; Stop 12/03/18 at 09:29; Status UNV Allergies: Coded Allergies: No Known Allergy (Unverified , 12/01/18) Past Surgical History Past Surgical Hx: other (unknown) Social History Alcohol Use: other Smoking Status: Never smoker Drug Use: other Exam/Review of Systems Exam Vitals Vital Signs Date Temp Pulse Resp B/P (MAP) Pulse Ox O2 O2 Flow FiO2 Time Delivery Rate 12/02/18 96 3.0 09:25 12/02/18 95 32 167/102 08:00 (123) 12/02/18 101.4 08:00 12/02/18 Nasal 07:00 Cannula 12/01/18 50 21:50 Intake and Output 12/01/18 12/01/18 12/02/18 1414:59 22:59 06:59 IntakeIntake Total 50 ml 3763.3 ml 1461 ml OutputOutput Total 140 ml 580 ml BalanceBalance 50 ml 3623.3 ml 881 ml Exam H ENT exam; supple neck, no JVD. No lymphadenopathy. Midline trachea. No thyromegaly. Oral mucosa is dry. Patient is edentulous. Pupils are small bilaterally. Chest exam; diminished breath sounds bilaterally. S1-S2 audible, no murmurs. Regular rhythm. Abdomen exam; soft, scaphoid. Umbilicus is inverted. No organomegaly. Bowel sounds audible. Abdomen is nondistended. Extremity exam; peripheral edema clubbing. DIRECTOR OF DESIGN exam; patient is noncommunicative. Results Result Diagram: 12/02/18 0500 12/02/18 0500 Results 24hrs Laboratory Tests Test 12/01/18 14:15 12/01/18 14:19 12/01/18 14:20 12/01/18 14:28 Blood Gas Blood arterial Specimen Source Arterial Blood 12/01/2018 2:50: Date Drawn 00 PM Arterial Blood 7.269 *L pH (Temp corrected ) Arterial Blood 46.4 H pCO2 (Temp correct) Arterial Blood 220.0 H pO2 (Temp corrected ) Arterial Blood 20.8 L HCO3 Arterial Blood -6.1 L Base Excess Arterial Blood 99.2 Oxygen Saturati on Leonardo Test ACCEPTAB Arterial Blood Right Radial Gas Puncture Site Arterial 0.3 Blood Carboxyhe moglobin Arterial Blood 0.4 Methemoglobin Blood Gas A-a 446.6 H O2 Differential Oxyhemoglobin 98.5 Percent Blood Gas 37.0 Temperature Blood Gas 20.0 Respiration Rate Blood Gas 24 Actual Respiration Rat e Blood Gas MASK - BIPAP Modality FiO2 100.0 Blood Gas 10 Pressure Support Blood Gas 15/5 IPAP/EPAP Ratio Blood Gas DR ABDALLA Critical Value Read Back Blood Gas RT Notified Whom Blood Gas 12/01/2018 3:05: Notified Time 00 PM White Blood 19.5 H Count Red Blood Count 4.71 Hemoglobin 14.1 Hematocrit 44.9 Mean 95.3 Corpuscular Volume Mean 29.9 Corpuscular Hemoglobin Mean 31.4 L Corpuscular Hemoglobin Conc ent Red Cell 15.6 H Distribution Width Platelet Count 299 Mean Platelet 11.9 H Volume Immature 0.700 H Granulocytes % Neutrophils % 88.8 H Lymphocytes % 7.1 L Monocytes % 3.1 Eosinophils % 0.0 Basophils % 0.3 Nucleated Red 0.0 Blood Cells % Immature 0.130 H Granulocytes # Neutrophils # 17.3 H Lymphocytes # 1.4 Monocytes # 0.6 Eosinophils # 0.0 Basophils # 0.1 Nucleated Red 0.0 Blood Cells # Prothrombin 15.3 H Time Prothrombin 1.2 Time Ratio INR 1.20 International Normalized Rati o Activated 34.2 Partial Thrombo plast Time Sodium Level 145 H Potassium Level 4.6 Chloride Level 107 Carbon Dioxide 28 Level Anion Gap 10 Blood Urea 46 H Nitrogen Creatinine 1.86 H Est Glomerular Filtrat Rate mL/min Glucose Level 141 Calcium Level 9.7 Total Bilirubin 0.8 Direct 0.00 Bilirubin Indirect 0.8 Bilirubin Aspartate Amino 100 H Transf (AST/SGO T) Alanine 50 Aminotransferas e (ALT/SGPT) Alkaline 205 H Phosphatase Troponin I < 0.012 Total Protein 8.5 H Albumin 3.8 Globulin 4.70 H Albumin/Globuli 0.80 n Ratio POC Venous 2.3 *H Lactate Urine Color ALANA Urine Clarity TURBID A Urine pH 5.0 Urine Specific 1.019 [place] Urine Ketones NEGATIVE Urine Nitrite NEGATIVE Urine Bilirubin NEGATIVE Urine NEGATIVE Urobilinogen Urine Leukocyte 3+ H Esterase Urine 65 H Microscopic RBC Urine > 182 H Microscopic WBC Urine Squamous FEW Epithelial Cell s Urine Bacteria MODERATE Urine 2+ H Hemoglobin Urine Glucose NEGATIVE Urine Total 2+ H Protein B-Type 2100 H Natriuretic Peptide Valproic Acid < 10 L (Depakene) Level Test 12/01/18 16:26 12/01/18 19:16 12/01/18 19:39 12/02/18 00:30 Lactic Acid 1.9 5.6 *H 2.5 *H Level Sodium Level 149 H Potassium Level 5.4 H Chloride Level 117 H Carbon Dioxide 22 Level Anion Gap 10 Blood Urea 38 H Nitrogen Creatinine 1.51 H Est Glomerular Filtrat Rate mL/min Glucose Level 153 Calcium Level 8.0 L Blood Gas Blood Specimen arterial Source Arterial Blood 12/01/2018 7:50 Date Drawn :12 PM Arterial Blood 7.348 L pH (Temp corrected ) Arterial Blood 25.7 L pCO2 (Temp correct) Arterial Blood 79.6 L pO2 (Temp corrected ) Arterial Blood 13.8 L HCO3 Arterial Blood -10.0 L Base Excess Arterial Blood 94.8 L Oxygen Saturati on Leonardo Test ACCEPTAB Arterial Blood Left Radial Gas Puncture Site Arterial 0.2 Blood Carboxyhe moglobin Arterial Blood 0.3 Methemoglobin Blood Gas A-a 248.0 H O2 Differential Oxyhemoglobin 94.3 Percent Blood Gas 37.0 Temperature Blood Gas 20.0 Respiration Rate Blood Gas 40 Actual Respiration Rat e Blood Gas MASK - BIPAP Modality FiO2 50.0 Blood Gas 0.9 Inspiratory Time Blood Gas 02/10 IPAP/EPAP Ratio Blood Gas AA Notified Whom Blood Gas 12/01/2018 8:05 Notified Time :05 PM Test 12/02/18 05:00 12/02/18 07:00 White Blood 18.8 H Count Red Blood Count 3.69 #L Hemoglobin 11.3 L Hematocrit 34.6 #L Mean 93.8 Corpuscular Volume Mean 30.6 Corpuscular Hemoglobin Mean 32.7 Corpuscular Hemoglobin Conc ent Red Cell 15.8 H Distribution Width Platelet Count 257 Mean Platelet 12.4 H Volume Immature 0.900 H Granulocytes % Neutrophils % 92.9 H Lymphocytes % 4.1 L Monocytes % 1.9 Eosinophils % 0.0 Basophils % 0.2 Nucleated Red 0.0 Blood Cells % Immature 0.170 H Granulocytes # Neutrophils # 17.5 H Lymphocytes # 0.8 Monocytes # 0.4 Eosinophils # 0.0 Basophils # 0.0 Nucleated Red 0.0 Blood Cells # Sodium Level 147 H Potassium Level 4.0 Chloride Level 121 H Carbon Dioxide 20 L Level Anion Gap 6 Blood Urea 31 H Nitrogen Creatinine 1.23 Est Glomerular Filtrat Rate mL/min Glucose Level 168 Lactic Acid 2.5 *H Level Calcium Level 7.6 L Magnesium Level 2.3 Total Bilirubin 0.5 Direct 0.00 Bilirubin Indirect 0.5 Bilirubin Aspartate Amino 64 H Transf (AST/SGO T) Alanine 43 Aminotransferas e (ALT/SGPT) Alkaline 116 Phosphatase Total Protein 5.9 #L Albumin 2.5 #L Globulin 3.40 H Albumin/Globuli 0.73 n Ratio Blood Gas Blood arterial Specimen Source Arterial Blood 12/02/2018 7:15: Date Drawn 47 AM Arterial Blood 7.488 H pH (Temp corrected ) Arterial Blood 26.4 L pCO2 (Temp correct) Arterial Blood 69.5 L pO2 (Temp corrected ) Arterial Blood 19.6 L HCO3 Arterial Blood -2.4 Base Excess Arterial Blood 94.3 L Oxygen Saturati on Leonardo Test ACCEPTAB Arterial Blood Left Radial Gas Puncture Site Arterial 0.3 Blood Carboxyhe moglobin Arterial Blood 0.2 Methemoglobin Blood Gas A-a 113.4 H O2 Differential Oxyhemoglobin 93.8 Percent Blood Gas 37.0 Temperature Blood Gas NASAL CANNULA Modality FiO2 30.0 Blood Gas TM Notified Whom Blood Gas 12/02/2018 7:29: Notified Time 32 AM Medications Medication Current Medications Acetaminophen (Tylenol Tab) 650 mg Q4H PRN PO MILD PAIN LEVEL 1-3; Start 12/01/18 at 16:30 Bisacodyl (Dulcolax) 10 mg Q24H PRN PO CONSTIPATION; Start 12/01/18 at 16:30 Ferrous Sulfate (Ferrous Sulfate (Ec)) 325 mg DAILY PO ; Start 12/02/18 at 09:00 Magnesium Hydroxide (Milk Of Mag) 30 ml Q24H PO ; Start 12/01/18 at 16:30 Multivitamins/ Minerals (Theragran-M) 1 tab DAILY PO ; Start 12/02/18 at 09:00 Sodium Chloride 1,000 ml @ 75 mls/hr [id number] IV Last administered on 12/02/18at 05:32; Admin Dose 75 MLS/HR; Start 12/01/18 at 16:12; Stop 12/02/18 at 16:11 IV Flush (NS 3 ml) 3 ml PER PROTOCOL IV ; Start 12/01/18 at 16:30 Ondansetron HCl (Zofran Inj) 4 mg Q6H PRN IV NAUSEA/VOMITING; Start 12/01/18 at 16:30 Docusate Sodium (Colace) 100 mg Q12H PRN PO .CONSTIPATION; Start 12/01/18 at 16:30 Magnesium Hydroxide (Milk Of Mag) 30 ml DAILY PRN PO .CONSTIPATION; Start 12/01/18 at 16:30 Enoxaparin Sodium (Lovenox) 30 mg DAILY SC ; Start 12/02/18 at 09:00 Albuterol (Proventil 0.083% (Neb)) 2.5 mg Q2H RESP THERAPY PRN HHN SHORTNESS OF BREATH; Start 12/01/18 at 18:00 Norepinephrine 250 ml @ 7.5 mls/hr ONCE STAT IV Last administered on 12/01/18at 18:50; Admin Dose 7.5 MLS/HR; Start 12/01/18 at 18:35; Stop 12/03/18 at 03:54 Amiodarone HCl 900 mg/Dextrose 500 ml @ 0 mls/hr Q0M IV Last administered on 12/01/18at 20:02; Admin Dose 33.3 MLS/HR; Start 12/01/18 at 19:30 Piperacillin Sod/ Tazobactam Sod 100 ml @ 200 mls/hr Q8 IVPB Last administered on 12/02/18at 06:40; Admin Dose 200 MLS/HR; Start 12/01/18 at 22:00 Vancomycin HCl (Vanco Iv Per Pharmacy) VANCOMYCIN PER PHARMACY PER PROTOCOL XX ; Start 12/01/18 at 21:30 Vancomycin HCl 250 ml @ 125 mls/hr Q24H IVPB ; Start 12/02/18 at 12:00 Valproate Sodium 125 mg/Sodium Chloride 51.25 ml @ 55 mls/hr QHS IVPB ; Start 12/02/18 at 21:00 Acetaminophen 100 ml @ 400 mls/hr Q6H PRN IVPB pain/fever over 100.4F; Start 12/02/18 at 09:30; Stop 12/03/18 at 09:29; Status KENNEDY ALEXANDRA Dec 02, 2018 09:34
[2018-12-02] MEDS: ENOXAPARIN 30 MG/0.3 ML SYG SC SCH (10:02)
--- NOTE | 2018-12-02 14:09 | CONS ---
Assessment/Plan Assessment/Plan Hospital Course (Demo Recall) No acute changes overnight. Patient is lethargic in no distress, spiking fevers with a T-max of 101.4 this morning WBC 18.8 platelets 257 neutrophils 92.9 BUN 31 creatinine 1.23 lactic acid 2.5 Microbiology: Blood cultures growing gram-negative rods and gram-positive cocci in clusters 1 set, urine culture growing gram-negative rods Indwelling, Trent catheter right subclavian triple-lumen catheter Chest x-ray from yesterday revealed patchy left basilar atelectasis Extremity venous study revealed no DVT renal ultrasound was unremarkable Antimicrobials: Vancomycin, Zosyn Physical examination: Chronically ill-appearing elderly man who is in no distress. Head atraumatic normocephalic neck is supple chest rise symmetrical breath sounds diminished bases. Heart: S1-S2 abdomen soft bowel sounds present. Extremities without cyanosis. Assessment: 1. Severe sepsis on admission 2. Urinary tract infection, gram-negative rods 3. Gram-negative krystal bacteremia likely secondary to #2 4. Gram-positive cocci bacteremia rule out contaminant 5. Possible pneumonia 6. Acute encephalopathy 7. History of hypertension Plan: Agree with current antibiotics, repeat blood cultures Consultation Date/Type/Reason Admit Date/Time Dec 01, 2018 at 17:12 Initial Consult Date 12/02/18 Type of Consult id Date/Time of Note DATE: 12/02/18 TIME: 14:09 Exam/Review of Systems Exam Vitals Vital Signs Date Temp Pulse Resp B/P (MAP) Pulse Ox O2 O2 Flow FiO2 Time Delivery Rate 12/02/18 99.9 11:32 12/02/18 96 3.0 09:25 12/02/18 98 08:00 12/02/18 32 167/102 08:00 (123) 12/02/18 Nasal 08:00 Cannula 12/01/18 50 21:50 Intake and Output 12/01/18 12/01/18 12/02/18 1515:00 23:00 07:00 IntakeIntake Total 50 ml 3882.3 ml 1445 ml OutputOutput Total 210 ml 585 ml BalanceBalance 50 ml 3672.3 ml 860 ml Results Result Diagram: 12/02/18 0500 12/02/18 0500 Results 24hrs Laboratory Tests Test 12/01/18 14:15 12/01/18 14:19 12/01/18 14:20 12/01/18 14:28 Blood Gas Blood arterial Specimen Source Arterial Blood 12/01/2018 2:50: Date Drawn 00 PM Arterial Blood 7.269 *L pH (Temp corrected ) Arterial Blood 46.4 H pCO2 (Temp correct) Arterial Blood 220.0 H pO2 (Temp corrected ) Arterial Blood 20.8 L HCO3 Arterial Blood -6.1 L Base Excess Arterial Blood 99.2 Oxygen Saturati on Leonardo Test ACCEPTAB Arterial Blood Right Radial Gas Puncture Site Arterial 0.3 Blood Carboxyhe moglobin Arterial Blood 0.4 Methemoglobin Blood Gas A-a 446.6 H O2 Differential Oxyhemoglobin 98.5 Percent Blood Gas 37.0 Temperature Blood Gas 20.0 Respiration Rate Blood Gas 24 Actual Respiration Rat e Blood Gas MASK - BIPAP Modality FiO2 100.0 Blood Gas 10 Pressure Support Blood Gas 15/5 IPAP/EPAP Ratio Blood Gas DR ABDALLA Critical Value Read Back Blood Gas RT Notified Whom Blood Gas 12/01/2018 3:05: Notified Time 00 PM White Blood 19.5 H Count Red Blood Count 4.71 Hemoglobin 14.1 Hematocrit 44.9 Mean 95.3 Corpuscular Volume Mean 29.9 Corpuscular Hemoglobin Mean 31.4 L Corpuscular Hemoglobin Conc ent Red Cell 15.6 H Distribution Width Platelet Count 299 Mean Platelet 11.9 H Volume Immature 0.700 H Granulocytes % Neutrophils % 88.8 H Lymphocytes % 7.1 L Monocytes % 3.1 Eosinophils % 0.0 Basophils % 0.3 Nucleated Red 0.0 Blood Cells % Immature 0.130 H Granulocytes # Neutrophils # 17.3 H Lymphocytes # 1.4 Monocytes # 0.6 Eosinophils # 0.0 Basophils # 0.1 Nucleated Red 0.0 Blood Cells # Prothrombin 15.3 H Time Prothrombin 1.2 Time Ratio INR 1.20 International Normalized Rati o Activated 34.2 Partial Thrombo plast Time Sodium Level 145 H Potassium Level 4.6 Chloride Level 107 Carbon Dioxide 28 Level Anion Gap 10 Blood Urea 46 H Nitrogen Creatinine 1.86 H Est Glomerular Filtrat Rate mL/min Glucose Level 141 Calcium Level 9.7 Total Bilirubin 0.8 Direct 0.00 Bilirubin Indirect 0.8 Bilirubin Aspartate Amino 100 H Transf (AST/SGO T) Alanine 50 Aminotransferas e (ALT/SGPT) Alkaline 205 H Phosphatase Troponin I < 0.012 Total Protein 8.5 H Albumin 3.8 Globulin 4.70 H Albumin/Globuli 0.80 n Ratio POC Venous 2.3 *H Lactate Urine Color ALANA Urine Clarity TURBID A Urine pH 5.0 Urine Specific 1.019 [place] Urine Ketones NEGATIVE Urine Nitrite NEGATIVE Urine Bilirubin NEGATIVE Urine NEGATIVE Urobilinogen Urine Leukocyte 3+ H Esterase Urine 65 H Microscopic RBC Urine > 182 H Microscopic WBC Urine Squamous FEW Epithelial Cell s Urine Bacteria MODERATE Urine 2+ H Hemoglobin Urine Glucose NEGATIVE Urine Total 2+ H Protein B-Type 2100 H Natriuretic Peptide Valproic Acid < 10 L (Depakene) Level Test 12/01/18 16:26 12/01/18 19:16 12/01/18 19:39 12/02/18 00:30 Lactic Acid 1.9 5.6 *H 2.5 *H Level Sodium Level 149 H Potassium Level 5.4 H Chloride Level 117 H Carbon Dioxide 22 Level Anion Gap 10 Blood Urea 38 H Nitrogen Creatinine 1.51 H Est Glomerular Filtrat Rate mL/min Glucose Level 153 Calcium Level 8.0 L Blood Gas Blood Specimen arterial Source Arterial Blood 12/01/2018 7:50 Date Drawn :12 PM Arterial Blood 7.348 L pH (Temp corrected ) Arterial Blood 25.7 L pCO2 (Temp correct) Arterial Blood 79.6 L pO2 (Temp corrected ) Arterial Blood 13.8 L HCO3 Arterial Blood -10.0 L Base Excess Arterial Blood 94.8 L Oxygen Saturati on Leonardo Test ACCEPTAB Arterial Blood Left Radial Gas Puncture Site Arterial 0.2 Blood Carboxyhe moglobin Arterial Blood 0.3 Methemoglobin Blood Gas A-a 248.0 H O2 Differential Oxyhemoglobin 94.3 Percent Blood Gas 37.0 Temperature Blood Gas 20.0 Respiration Rate Blood Gas 40 Actual Respiration Rat e Blood Gas MASK - BIPAP Modality FiO2 50.0 Blood Gas 0.9 Inspiratory Time Blood Gas 02/10 IPAP/EPAP Ratio Blood Gas AA Notified Whom Blood Gas 12/01/2018 8:05 Notified Time :05 PM Test 12/02/18 05:00 12/02/18 07:00 12/02/18 09:48 White Blood 18.8 H Count Red Blood Count 3.69 #L Hemoglobin 11.3 L Hematocrit 34.6 #L Mean 93.8 Corpuscular Volume Mean 30.6 Corpuscular Hemoglobin Mean 32.7 Corpuscular Hemoglobin Conc ent Red Cell 15.8 H Distribution Width Platelet Count 257 Mean Platelet 12.4 H Volume Immature 0.900 H Granulocytes % Neutrophils % 92.9 H Lymphocytes % 4.1 L Monocytes % 1.9 Eosinophils % 0.0 Basophils % 0.2 Nucleated Red 0.0 Blood Cells % Immature 0.170 H Granulocytes # Neutrophils # 17.5 H Lymphocytes # 0.8 Monocytes # 0.4 Eosinophils # 0.0 Basophils # 0.0 Nucleated Red 0.0 Blood Cells # Sodium Level 147 H Potassium Level 4.0 Chloride Level 121 H Carbon Dioxide 20 L Level Anion Gap 6 Blood Urea 31 H Nitrogen Creatinine 1.23 Est Glomerular Filtrat Rate mL/min Glucose Level 168 Lactic Acid 2.5 *H Level Calcium Level 7.6 L Magnesium Level 2.3 Total Bilirubin 0.5 Direct 0.00 Bilirubin Indirect 0.5 Bilirubin Aspartate Amino 64 H Transf (AST/SGO T) Alanine 43 Aminotransferas e (ALT/SGPT) Alkaline 116 Phosphatase Total Protein 5.9 #L Albumin 2.5 #L Globulin 3.40 H Albumin/Globuli 0.73 n Ratio Blood Gas Blood arterial Specimen Source Arterial Blood 12/02/2018 7:15: Date Drawn 47 AM Arterial Blood 7.488 H pH (Temp corrected ) Arterial Blood 26.4 L pCO2 (Temp correct) Arterial Blood 69.5 L pO2 (Temp corrected ) Arterial Blood 19.6 L HCO3 Arterial Blood -2.4 Base Excess Arterial Blood 94.3 L Oxygen Saturati on Leonardo Test ACCEPTAB Arterial Blood Left Radial Gas Puncture Site Arterial 0.3 Blood Carboxyhe moglobin Arterial Blood 0.2 Methemoglobin Blood Gas A-a 113.4 H O2 Differential Oxyhemoglobin 93.8 Percent Blood Gas 37.0 Temperature Blood Gas NASAL CANNULA Modality FiO2 30.0 Blood Gas TM Notified Whom Blood Gas 12/02/2018 7:29: Notified Time 32 AM Ammonia 10 Medications Medication Current Medications Acetaminophen (Tylenol Tab) 650 mg Q4H PRN PO MILD PAIN LEVEL 1-3; Start 12/01/18 at 16:30 Bisacodyl (Dulcolax) 10 mg Q24H PRN PO CONSTIPATION; Start 12/01/18 at 16:30 Ferrous Sulfate (Ferrous Sulfate (Ec)) 325 mg DAILY PO Last administered on 12/02/18at 11:27; Admin Dose 325 MG; Start 12/02/18 at 09:00 Magnesium Hydroxide (Milk Of Mag) 30 ml Q24H PO ; Start 12/01/18 at 16:30 Multivitamins/ Minerals (Theragran-M) 1 tab DAILY PO Last administered on 12/02/18at 11:27; Admin Dose 1 TAB; Start 12/02/18 at 09:00 Sodium Chloride 1,000 ml @ 75 mls/hr [id number] IV Last administered on 12/02/18at 05:32; Admin Dose 75 MLS/HR; Start 12/01/18 at 16:12; Stop 12/02/18 at 16:11 IV Flush (NS 3 ml) 3 ml PER PROTOCOL IV ; Start 12/01/18 at 16:30 Ondansetron HCl (Zofran Inj) 4 mg Q6H PRN IV NAUSEA/VOMITING; Start 12/01/18 at 16:30 Docusate Sodium (Colace) 100 mg Q12H PRN PO .CONSTIPATION; Start 12/01/18 at 16:30 Magnesium Hydroxide (Milk Of Mag) 30 ml DAILY PRN PO .CONSTIPATION; Start 12/01/18 at 16:30 Enoxaparin Sodium (Lovenox) 30 mg DAILY SC Last administered on 12/02/18at 10:02; Admin Dose 30 MG; Start 12/02/18 at 09:00 Albuterol (Proventil 0.083% (Neb)) 2.5 mg Q2H RESP THERAPY PRN HHN SHORTNESS OF BREATH; Start 12/01/18 at 18:00 Norepinephrine 250 ml @ 7.5 mls/hr ONCE STAT IV Last administered on 12/01/18at 18:50; Admin Dose 7.5 MLS/HR; Start 12/01/18 at 18:35; Stop 12/03/18 at 03:54 Amiodarone HCl 900 mg/Dextrose 500 ml @ 0 mls/hr Q0M IV Last administered on 12/01/18at 20:02; Admin Dose 33.3 MLS/HR; Start 12/01/18 at 19:30 Piperacillin Sod/ Tazobactam Sod 100 ml @ 200 mls/hr Q8 IVPB Last administered on 12/02/18at 06:40; Admin Dose 200 MLS/HR; Start 12/01/18 at 22:00 Vancomycin HCl (Vanco Iv Per Pharmacy) VANCOMYCIN PER PHARMACY PER PROTOCOL XX ; Start 12/01/18 at 21:30 Vancomycin HCl 250 ml @ 125 mls/hr Q24H IVPB ; Start 12/02/18 at 12:00 Valproate Sodium 125 mg/Sodium Chloride 51.25 ml @ 55 mls/hr QHS IVPB ; Start 12/02/18 at 21:00 Acetaminophen 100 ml @ 400 mls/hr Q6H PRN IVPB pain/fever over 100.4F Last administered on 12/02/18at 09:58; Admin Dose 400 MLS/HR; Start 12/02/18 at 09:30; Stop 12/03/18 at 09:29 ALYSON FONTANEZ NP Dec 02, 2018 14:09
[2018-12-02] MEDS: VANCOMYCIN 1 GM 250 ML IVPB SCH (14:31)
[2018-12-02] MEDS: MAGNESIUM HYDROXIDE 30ML CUP PO SCH (17:32)
--- NOTE | 2018-12-02 19:45 | CONS ---
Assessment/Plan Assessment/Plan Hospital Course (Demo Recall) Septic shock, off IV pressor Borderline blood pressure/hypotension Tachycardia, likely atrial flutter/fibrillation-now SR Encephalopathy Renal dysfunction Respiratory failure Pt off iv pressor Currently SR Plan to adjust amio to po next 24 hours Echo pending AB as per ID Consultation Date/Type/Reason Admit Date/Time Dec 01, 2018 at 17:12 Initial Consult Date 12/02/18 Type of Consult Cardiology Date/Time of Note DATE: 12/02/18 TIME: 19:43 24 HR Interval Summary Free Text/Dictation off iv pressor, sr on tele Exam/Review of Systems Vital Signs Vitals Vital Signs Date Temp Pulse Resp B/P (MAP) Pulse Ox O2 O2 Flow FiO2 Time Delivery Rate 12/02/18 74 23 91/55 (67) 19:00 12/02/18 98 18:00 12/02/18 Nasal 17:00 Cannula 12/02/18 98.5 16:00 12/02/18 3.0 10:00 12/01/18 50 21:50 Intake and Output 12/01/18 12/01/18 12/02/18 1515:00 23:00 07:00 IntakeIntake Total 50 ml 3882.3 ml 1445 ml OutputOutput Total 210 ml 585 ml BalanceBalance 50 ml 3672.3 ml 860 ml Exam Exam nad, minimal response Head: normocephalic Respiratory: other (course bs, no wheeze) Cardiovascular: regular rate and rhythm (s1s2) Gastrointestinal: soft, non-tender, bowel sounds Extremities: edema (no) Labs Result Diagram: 12/02/18 0500 12/02/18 0500 Results 24hrs Laboratory Tests Test 12/02/18 00:30 12/02/18 05:00 12/02/18 07:00 12/02/18 09:48 Lactic Acid Level 2.5 *H 2.5 *H White Blood Count 18.8 H Red Blood Count 3.69 #L Hemoglobin 11.3 L Hematocrit 34.6 #L Mean Corpuscular 93.8 Volume Mean Corpuscular 30.6 Hemoglobin Mean Corpuscular 32.7 Hemoglobin Concen t Red Cell 15.8 H Distribution Width Platelet Count 257 Mean Platelet 12.4 H Volume Immature 0.900 H Granulocytes % Neutrophils % 92.9 H Lymphocytes % 4.1 L Monocytes % 1.9 Eosinophils % 0.0 Basophils % 0.2 Nucleated Red 0.0 Blood Cells % Immature 0.170 H Granulocytes # Neutrophils # 17.5 H Lymphocytes # 0.8 Monocytes # 0.4 Eosinophils # 0.0 Basophils # 0.0 Nucleated Red 0.0 Blood Cells # Sodium Level 147 H Potassium Level 4.0 Chloride Level 121 H Carbon Dioxide 20 L Level Anion Gap 6 Blood Urea 31 H Nitrogen Creatinine 1.23 Est Glomerular Filtrat Rate mL/min Glucose Level 168 Calcium Level 7.6 L Magnesium Level 2.3 Total Bilirubin 0.5 Direct Bilirubin 0.00 Indirect 0.5 Bilirubin Aspartate Amino 64 H Transf (AST/SGOT) Alanine 43 Aminotransferase (ALT/SGPT) Alkaline 116 Phosphatase Total Protein 5.9 #L Albumin 2.5 #L Globulin 3.40 H Albumin/Globulin 0.73 Ratio Blood Gas Blood arterial Specimen Source Arterial Blood 12/02/2018 7:15:4 Date Drawn 7 AM Arterial Blood pH 7.488 H (Temp corrected) Arterial Blood 26.4 L pCO2 (Temp correct) Arterial Blood 69.5 L pO2 (Temp corrected) Arterial Blood 19.6 L HCO3 Arterial Blood -2.4 Base Excess Arterial Blood 94.3 L Oxygen Saturation Leonardo Test ACCEPTAB Arterial Blood Left Radial Gas Puncture Site Arterial 0.3 Blood Carboxyhemo globin Arterial Blood 0.2 Methemoglobin Blood Gas A-a O2 113.4 H Differential Oxyhemoglobin 93.8 Percent Blood Gas 37.0 Temperature Blood Gas NASAL CANNULA Modality FiO2 30.0 Blood Gas TM Notified Whom Blood Gas 12/02/2018 7:29:3 Notified Time 2 AM Ammonia 10 Medications Medications Current Medications Acetaminophen (Tylenol Tab) 650 mg Q4H PRN PO MILD PAIN LEVEL 1-3; Start 12/01/18 at 16:30 Bisacodyl (Dulcolax) 10 mg Q24H PRN PO CONSTIPATION; Start 12/01/18 at 16:30 Ferrous Sulfate (Ferrous Sulfate (Ec)) 325 mg DAILY PO Last administered on 12/02/18at 11:27; Admin Dose 325 MG; Start 12/02/18 at 09:00 Magnesium Hydroxide (Milk Of Mag) 30 ml Q24H PO Last administered on 12/02/18at 17:32; Admin Dose 30 ML; Start 12/01/18 at 16:30 Multivitamins/ Minerals (Theragran-M) 1 tab DAILY PO Last administered on 12/02/18at 11:27; Admin Dose 1 TAB; Start 12/02/18 at 09:00 IV Flush (NS 3 ml) 3 ml PER PROTOCOL IV ; Start 12/01/18 at 16:30 Ondansetron HCl (Zofran Inj) 4 mg Q6H PRN IV NAUSEA/VOMITING; Start 12/01/18 at 16:30 Docusate Sodium (Colace) 100 mg Q12H PRN PO .CONSTIPATION; Start 12/01/18 at 16:30 Magnesium Hydroxide (Milk Of Mag) 30 ml DAILY PRN PO .CONSTIPATION; Start 12/01/18 at 16:30 Enoxaparin Sodium (Lovenox) 30 mg DAILY SC Last administered on 12/02/18at 10:02; Admin Dose 30 MG; Start 12/02/18 at 09:00 Albuterol (Proventil 0.083% (Neb)) 2.5 mg Q2H RESP THERAPY PRN HHN SHORTNESS OF BREATH; Start 12/01/18 at 18:00 Norepinephrine 250 ml @ 7.5 mls/hr ONCE STAT IV Last administered on 12/01/18at 18:50; Admin Dose 7.5 MLS/HR; Start 12/01/18 at 18:35; Stop 12/03/18 at 03:54 Amiodarone HCl 900 mg/Dextrose 500 ml @ 0 mls/hr Q0M IV Last administered on 12/01/18at 20:02; Admin Dose 33.3 MLS/HR; Start 12/01/18 at 19:30 Piperacillin Sod/ Tazobactam Sod 100 ml @ 200 mls/hr Q8 IVPB Last administered on 12/02/18at 14:30; Admin Dose 200 MLS/HR; Start 12/01/18 at 22:00 Vancomycin HCl (Vanco Iv Per Pharmacy) VANCOMYCIN PER PHARMACY PER PROTOCOL XX ; Start 12/01/18 at 21:30 Vancomycin HCl 250 ml @ 125 mls/hr Q24H IVPB Last administered on 12/02/18at 14:31; Admin Dose 125 MLS/HR; Start 12/02/18 at 12:00 Valproate Sodium 125 mg/Sodium Chloride 51.25 ml @ 55 mls/hr QHS IVPB ; Start 12/02/18 at 21:00 Acetaminophen 100 ml @ 400 mls/hr Q6H PRN IVPB pain/fever over 100.4F Last administered on 12/02/18at 09:58; Admin Dose 400 MLS/HR; Start 12/02/18 at 09:30; Stop 12/03/18 at 09:29 Manoj Biggs DO Dec 02, 2018 19:45
[2018-12-02] MEDS: VALPROATE INJ 125 MG in SOD CHLORIDE 0.9% 50 ML IVPB SCH (21:00)
[2018-12-03] VITALS (21 sets, daily range): BP systolic 101–156; BP diastolic 65–101; PULSE 70–99; RESP 13–34
[2018-12-03] MEDS: PIPER-TAZO 3.375 GM IV (PMX) 100 ML IVPB SCH ×3 (05:53→21:21)
[2018-12-03] MEDS ORDERED: hydrALAzine 20 MG INJ IV PRN (09:00)
--- NOTE | 2018-12-03 09:20 | PN ---
Date/Time of Note Date/Time of Note DATE: 12/03/18 TIME: 09:15 Objective Vitals Vital Signs Date Temp Pulse Resp B/P (MAP) Pulse Ox O2 O2 Flow FiO2 Time Delivery Rate 12/03/18 75 08:00 12/03/18 26 146/88 99 07:00 (107) 12/03/18 8.0 06:01 12/03/18 Nasal 06:00 Cannula 12/03/18 99.0 04:00 12/01/18 50 21:50 Intake and Output 12/02/18 12/02/18 12/03/18 1515:00 23:00 07:00 IntakeIntake Total 788.6 ml 598.1 ml 348.1 ml OutputOutput Total 575 ml 400 ml 310 ml BalanceBalance 213.6 ml 198.1 ml 38.1 ml Results Result Diagram: 12/03/18 0430 12/03/18 0430 Medications Medications Current Medications Acetaminophen (Tylenol Tab) 650 mg Q4H PRN PO MILD PAIN LEVEL 1-3; Start 12/01/18 at 16:30 Bisacodyl (Dulcolax) 10 mg Q24H PRN PO CONSTIPATION; Start 12/01/18 at 16:30 Ferrous Sulfate (Ferrous Sulfate (Ec)) 325 mg DAILY PO Last administered on 12/02/18at 11:27; Admin Dose 325 MG; Start 12/02/18 at 09:00 Magnesium Hydroxide (Milk Of Mag) 30 ml Q24H PO Last administered on 12/02/18at 17:32; Admin Dose 30 ML; Start 12/01/18 at 16:30 Multivitamins/ Minerals (Theragran-M) 1 tab DAILY PO Last administered on 12/02/18at 11:27; Admin Dose 1 TAB; Start 12/02/18 at 09:00 IV Flush (NS 3 ml) 3 ml PER PROTOCOL IV ; Start 12/01/18 at 16:30 Ondansetron HCl (Zofran Inj) 4 mg Q6H PRN IV NAUSEA/VOMITING; Start 12/01/18 at 16:30 Docusate Sodium (Colace) 100 mg Q12H PRN PO .CONSTIPATION; Start 12/01/18 at 16:30 Magnesium Hydroxide (Milk Of Mag) 30 ml DAILY PRN PO .CONSTIPATION; Start 12/01/18 at 16:30 Enoxaparin Sodium (Lovenox) 30 mg DAILY SC Last administered on 12/02/18at 10:02; Admin Dose 30 MG; Start 12/02/18 at 09:00 Albuterol (Proventil 0.083% (Neb)) 2.5 mg Q2H RESP THERAPY PRN HHN SHORTNESS OF BREATH; Start 12/01/18 at 18:00 Amiodarone HCl 900 mg/Dextrose 500 ml @ 0 mls/hr Q0M IV Last administered on 12/01/18at 20:02; Admin Dose 33.3 MLS/HR; Start 12/01/18 at 19:30 Piperacillin Sod/ Tazobactam Sod 100 ml @ 200 mls/hr Q8 IVPB Last administered on 12/03/18at 05:53; Admin Dose 200 MLS/HR; Start 12/01/18 at 22:00 Vancomycin HCl (Vanco Iv Per Pharmacy) VANCOMYCIN PER PHARMACY PER PROTOCOL XX ; Start 12/01/18 at 21:30 Vancomycin HCl 250 ml @ 125 mls/hr Q24H IVPB Last administered on 12/02/18at 14:31; Admin Dose 125 MLS/HR; Start 12/02/18 at 12:00 Valproate Sodium 125 mg/Sodium Chloride 51.25 ml @ 55 mls/hr QHS IVPB Last administered on 12/02/18at 21:00; Admin Dose 55 MLS/HR; Start 12/02/18 at 21:00 Acetaminophen 100 ml @ 400 mls/hr Q6H PRN IVPB pain/fever over 100.4F Last administered on 12/02/18at 09:58; Admin Dose 400 MLS/HR; Start 12/02/18 at 09:30; Stop 12/03/18 at 09:29 Hydralazine HCl (Apresoline) 10 mg Q4H PRN IV ELEVATED BLOOD PRESSURE; Start 12/03/18 at 09:00 VTE Prophylaxis Risk score (from Nsg)>0 risk: 9 SCD applied (from Nsg): No SCD contraindication: other Lines/Catheters IV Catheter Type: Early in Place: Yes Cont'd early catheter reason: terminal illness/intractable pain Assessment/Plan Hospital Course Subjective Patient still encephalopathic, still on nasal cannula, now with tube feeds Objective Physical exam General: Patient is laying in bed, on nasal cannula Mentation: Patient is arousable but not oriented Head: Normocephalic atraumatic Eyes: EOMI, but very difficult to assess as patient tightly close his eyes Neck: Supple, nontender, midline Respiratory: Coarse to auscultation bilaterally Cardiovascular: regular rate, no obvious murmurs Gastrointestinal: non-tender to palpation, bowel sounds heard. Neurological: Moves all extremities spontaneously to noxious stimuli but no coordinated movement for now Skin: No new skin lesions Assessment/Plan septic shock secondary to UTI/bacteremia/PNA -IV antibiotic, broad-spectrum, infectious disease on board -Pending culture results -Now off pressors -Resolving Bacteremia -Gram-negative krystal so far, likely E. coli with UTI source -Continue antibiotics per infectious disease recommendations PNA -cont abx per ID recs Acute on chronic encephalopathy -Patient's baseline is alert and oriented x1 per nursing staff at the skilled nursing -Patient likely was able to eat and ambulate according to detention facility -Patient does not have a conservator according to social science manager and detention facility, patient also has no family and interdisciplinary faculty at [facility] was making decisions. -CT head only shows chronic infarct -Encephalopathy is likely due to bacteremia and UTI. Arrhythmia, likely afib-aflutter - seen on EKG - Cardiology consultation appreciated - ECHO ordered -Continue on amiodarone transition to p.o. when able MORTEZA -Resolved -Continue volume status, monitor closely, Hypernatremia -Nephrology consulted -IncreaseD free water flush elevated BNP -Patient's chest x-ray does show some pulmonary edema, will defer to cardiology for the recommendations -Pulmonology also on board UTI - UA noted - urine culture NOTED - broad spectrum antibiotic started - ID consulted Acute respiratory distress -Now off BiPAP -Pulmonology consulted, Hypertension -Restart home medications when able, use PRN for now dementia -Baseline per detention facility was alert and oriented x1 Depression? - on depakote, will cont IV Diet - will order speech evaluation -NG tube with tube feeds in the meantime as patient is still encephalopathic Code status - Full Code Disposition -Continue ICU care, continue antibiotics per infectious disease's patient does have bacteremia -More than 40 minutes of critical care time was spent on this evaluation QASIM HWANG Dec 03, 2018 09:20
--- NOTE | 2018-12-03 09:24 | CONS ---
Assessment/Plan Assessment/Plan Assessment/Plan (Daily) Chest x-ray was reviewed from today which is showing very mild pulmonary vascular congestion with a left lower lobe infiltrate. Assessment and recommendations; next 1. Patient with history of dementia admitted for severe sepsis from UTI as well as gram-negative bacteremia likely from E. coli which has been cultured from urine. Currently on appropriate antimicrobial regimen with improving leukoc ytosis as well as overall clinical status. 2. Mild hypernatremia. 3. History of seizure disorder. 4. Mild anemia. 5. Some element of pulmonary vascular congestion as well. Continue current supportive care. Patient responding well to current treatment regimen. Free water to be added for correction of hypernatremia. Obtain follow-up chest x-ray in 24 hours. Tube feeding to be resumed as well. Consultation Date/Type/Reason Admit Date/Time Dec 01, 2018 at 17:12 Initial Consult Date 12/02/18 Type of Consult Pulmonary/critical care Patient is a 88-year-old male who was transferred over from [facility] to the hospital because of altered mental status. Patient has been diagnosed with sepsis due to UTI as well as cardiac arrhythmia. Was a time I saw him in ICU, patient is on nasal cannula but is noncommunicative. History is been obtained from medical records. Patient did not appear to be in any distress. Past medical history; 1. Apparent dementia. 2. Anemia 3. History of seizure disorder. Medications; reviewed. Allergies; none. Social history, family history, occupational history is are not available. Review of system; unable to be obtained. General exam; elderly male, noncommunicative. Currently no distress. Date/Time of Note DATE: 12/03/18 TIME: 09:21 24 HR Interval Summary Free Text/Dictation Patient's condition has improved. Patient appears markedly less tachypneic. However still remains unresponsive. Patient has remained hemodynamically stable. General exam; elderly male, currently no distress. Noncommunicative and unresp onsive to any commands. Exam/Review of Systems Exam Vitals Vital Signs Date Temp Pulse Resp B/P (MAP) Pulse Ox O2 O2 Flow FiO2 Time Delivery Rate 12/03/18 75 08:00 12/03/18 26 146/88 99 07:00 (107) 12/03/18 8.0 06:01 12/03/18 Nasal 06:00 Cannula 12/03/18 99.0 04:00 7/14/19 50 21:50 Intake and Output 12/02/18 12/02/18 12/03/18 1515:00 23:00 07:00 IntakeIntake Total 788.6 ml 598.1 ml 348.1 ml OutputOutput Total 575 ml 400 ml 310 ml BalanceBalance 213.6 ml 198.1 ml 38.1 ml Exam H EENT exam; supple neck, no JVD. No lymphadenopathy. Midline trachea. No thyromegaly. Oral mucosa is dry. Patient is edentulous. No neck masses. Na sogastric tube in place. Chest exam; diminished but clear breath sounds. S1-S2 audible, no murmurs. Regular rhythm. Abdomen exam; soft, no organomegaly. Scaphoid. Bowel sounds are audible. Extremity exam; peripheral edema. ENVIRONMENTAL ECONOMIST exam; patient remains unresponsive. Results Result Diagram: 12/03/18 0430 12/03/18 0430 Results 24hrs Laboratory Tests Test 12/02/18 09:48 12/02/18 22:49 12/03/18 04:30 Ammonia 10 < 9 L Blood Gas Specimen Source Blood arterial Arterial Blood Date Drawn 12/02/2018 11:10:51 PM Arterial Blood pH 7.402 (Temp corrected) Arterial Blood pCO2 31.3 L (Temp correct) Arterial Blood pO2 69.5 L (Temp corrected) Arterial Blood HCO3 19.0 L Arterial Blood Base Excess -4.6 L Arterial Blood 94.0 L Oxygen Saturation Leonardo Test ACCEPTAB Arterial Blood Gas Right Radial Puncture Site Arterial 0.3 Blood Carboxyhemoglobin Arterial Blood 0.3 Methemoglobin Blood Gas A-a O2 388.8 H Differential Oxyhemoglobin Percent 93.4 Blood Gas Temperature 37.0 Blood Gas Actual 28 Respiration Rate Blood Gas Modality MASK - SIMPLE FiO2 69.0 Blood Gas Notified Whom [facility]. Blood Gas Notified Time 12/02/2018 11:14:53 PM White Blood Count 11.6 #H Red Blood Count 3.54 L Hemoglobin 10.7 L Hematocrit 33.6 L Mean Corpuscular Volume 94.9 Mean Corpuscular Hemoglobin 30.2 Mean Corpuscular 31.8 L Hemoglobin Concent Red Cell Distribution Width 15.9 H Platelet Count 232 Mean Platelet Volume 12.2 H Immature Granulocytes % 1.600 H Neutrophils % 87.9 H Lymphocytes % 6.7 L Monocytes % 2.8 Eosinophils % 0.8 Basophils % 0.2 Nucleated Red Blood Cells % 0.0 Immature Granulocytes # 0.180 H Neutrophils # 10.2 H Lymphocytes # 0.8 Monocytes # 0.3 Eosinophils # 0.1 Basophils # 0.0 Nucleated Red Blood Cells # 0.0 Sodium Level 150 H Potassium Level 4.0 Chloride Level 122 H Carbon Dioxide Level 23 Anion Gap 5 Blood Urea Nitrogen 21 H Creatinine 1.00 Est Glomerular Filtrat Rate mL/min Glucose Level 107 # Lactic Acid Level 1.2 Calcium Level 8.2 L Magnesium Level 2.6 H Total Bilirubin 0.5 Direct Bilirubin 0.00 Indirect Bilirubin 0.5 Aspartate Amino 99 #H Transf (AST/SGOT) Alanine 57 Aminotransferase (ALT/SGPT) Alkaline Phosphatase 132 H Total Protein 5.3 L Albumin 2.2 L Globulin 3.10 Albumin/Globulin Ratio 0.70 Medications Medication Current Medications Acetaminophen (Tylenol Tab) 650 mg Q4H PRN PO MILD PAIN LEVEL 1-3; Start 12/01/18 at 16:30 Bisacodyl (Dulcolax) 10 mg Q24H PRN PO CONSTIPATION; Start 12/01/18 at 16:30 Ferrous Sulfate (Ferrous Sulfate (Ec)) 325 mg DAILY PO Last administered on 12/02/18at 11:27; Admin Dose 325 MG; Start 12/02/18 at 09:00 Magnesium Hydroxide (Milk Of Mag) 30 ml Q24H PO Last administered on 12/02/18at 17:32; Admin Dose 30 ML; Start 12/01/18 at 16:30 Multivitamins/ Minerals (Theragran-M) 1 tab DAILY PO Last administered on 12/02/18at 11:27; Admin Dose 1 TAB; Start 12/02/18 at 09:00 IV Flush (NS 3 ml) 3 ml PER PROTOCOL IV ; Start 12/01/18 at 16:30 Ondansetron HCl (Zofran Inj) 4 mg Q6H PRN IV NAUSEA/VOMITING; Start 12/01/18 at 16:30 Docusate Sodium (Colace) 100 mg Q12H PRN PO .CONSTIPATION; Start 12/01/18 at 16:30 Magnesium Hydroxide (Milk Of Mag) 30 ml DAILY PRN PO .CONSTIPATION; Start 12/01/18 at 16:30 Enoxaparin Sodium (Lovenox) 30 mg DAILY SC Last administered on 12/02/18 10:02; Admin Dose 30 MG; Start 12/02/18 at 09:00 Albuterol (Proventil 0.083% (Neb)) 2.5 mg Q2H RESP THERAPY PRN HHN SHORTNESS OF BREATH; Start 12/01/18 at 18:00 Amiodarone HCl 900 mg/Dextrose 500 ml @ 0 mls/hr Q0M IV Last administered on 12/01/18at 20:02; Admin Dose 33.3 MLS/HR; Start 12/01/18 at 19:30 Piperacillin Sod/ Tazobactam Sod 100 ml @ 200 mls/hr Q8 IVPB Last administered on 12/03/18at 05:53; Admin Dose 200 MLS/HR; Start 12/01/18 at 22:00 Vancomycin HCl (Vanco Iv Per Pharmacy) VANCOMYCIN PER PHARMACY PER PROTOCOL XX ; Start 12/01/18 at 21:30 Vancomycin HCl 250 ml @ 125 mls/hr Q24H IVPB Last administered on 12/02/18at 14:31; Admin Dose 125 MLS/HR; Start 12/02/18 at 12:00 Valproate Sodium 125 mg/Sodium Chloride 51.25 ml @ 55 mls/hr QHS IVPB Last administered on 12/02/18 21:00; Admin Dose 55 MLS/HR; Start 12/02/18 at 21:00 Acetaminophen 100 ml @ 400 mls/hr Q6H PRN IVPB pain/fever over 100.4F Last administered on 12/02/18 09:58; Admin Dose 400 MLS/HR; Start 12/02/18 at 09:30; Stop 12/03/18 at 09:29 Hydralazine HCl (Apresoline) 10 mg Q4H PRN IV ELEVATED BLOOD PRESSURE; Start 12/03/18 at 09:00 KENNEDY DIEHL Dec 03, 2018 09:24
[2018-12-03] MEDS: ENOXAPARIN 30 MG/0.3 ML SYG SC SCH (10:05)
[2018-12-03] MEDS: MULTIVITAMINS 30 ML CUP GTB SCH (12:09)
[2018-12-03] MEDS: FERROUS SULFATE 60 MG/ML 5ML CUP NGT SCH (12:09)
[2018-12-03] MEDS: VANCOMYCIN 1 GM 250 ML IVPB SCH (12:10)
--- NOTE | 2018-12-03 12:28 | CONS ---
Assessment/Plan Assessment/Plan Assessment/Plan (Daily) 1. acute hypernatremia, due to free water deficit 2. septic shock due to PNA/UTI/bacteremia 3 acute UTI 4.acute hyoxic respiratory failure s/p BIPAP now 5. Acute on chronic encephalopathy 6. H/o HTN, CAD, dementia, depression, HLD, and osteoarthritis Plan: seen in ICU, approximate free water deficit is 2 liter, will give iVF D5W at 70 cc/ hr x 2 liter then will reassess IV abx for sepsis, Renally dose all abx and monitor electorlytes Off BIPAP, still respiratory status is labile , will follow up Thanks for consultation , I will continue to follow up Consultation Date/Type/Reason Admit Date/Time Dec 01, 2018 at 17:12 Date of Consultation: Dec 03, 2018 Type of Consult NEPHROLOGY Reason for Consultation Hypernatremia Requesting Provider: QASIM HWANG Date/Time of Note DATE: 12/03/18 TIME: 12:28 Hx of Present Illness 88 yo M with PMH HTN, CAD, dementia, depression, HLD, and osteoarthritis presented from SNF for shortness of breath and fevers. He gets admitted for septic shock due to PNA/bactremia and UTI. he had acute hypoxic respiratory failure requiring BIPAP- On admission Na was normal, In last three days, His Na persistently remained high around 150-155- K has been normal, BUN/Cr has been normal, making adequate urine output Renal has been consulted for hypernatremia. Subjective hx not possible: other (Unable to obtain ROS due to clinical condition ) Past Medical History Medical History: coronary artery disease, high cholesterol, hypertension, other (dementia, osteoarthritis) Home Meds Reported Medications Ascorbic Acid (Vitamin C) 500 Mg Tab, 500 MG PO DAILY, TAB 12/01/18 Amlodipine Besylate* (Norvasc*) 2.5 Mg Tablet, 2.5 MG PO DAILY, TAB HOLD FOR SBP<110 HR<60 12/01/18 Multivit-Min/Iron Fum/Folic AC (Xtqau-Bwvisid-Srcvfpxd Tablet) 1 Each Tablet, 1 EACH PO DAILY, TAB 12/01/18 Magnesium Hydroxide* (Milk Of Magnesia*) 400 Mg/5 Ml Oral.susp, 30 ML PO Q24H for CONSTIPATION, ML 12/01/18 Mag Hydrox/Al Hydrox/Simeth (Maalox Advanced Suspension) 355 Ml Oral.susp, 30 ML PO Q4H 12/01/18 Ferrous Sulfate* (Ferrous Sulfate*) 325 Mg Tabec, 325 MG PO DAILY, TAB 12/01/18 Bisacodyl* (Dulcolax*) 5 Mg Tablet.dr, 10 MG PO Q24H PRN for CONSTIPATION, TAB 12/01/18 Divalproex Sodium* (Depakote* Sprinkle) 125 Mg Cap.sprink, 125 MG PO QHS, #90 CAP 12/01/18 Atorvastatin Calcium* (Atorvastatin Calcium*) 20 Mg Tablet, 20 MG PO QHS, #30 TAB 12/01/18 Acetaminophen* (Acetaminophen*) 325 Mg Tablet, 650 MG PO Q4H PRN for MILD PAIN LEVEL 1-3, #30 TAB AND TEMP 100F OR ABOVE 12/01/18 Medications Current Medications Acetaminophen (Tylenol Tab) 650 mg Q4H PRN PO MILD PAIN LEVEL 1-3; Start 12/01/18 at 16:30 Bisacodyl (Dulcolax) 10 mg Q24H PRN PO CONSTIPATION; Start 12/01/18 at 16:30 Magnesium Hydroxide (Milk Of Mag) 30 ml Q24H PO Last administered on 12/02/18at 17:32; Admin Dose 30 ML; Start 12/01/18 at 16:30 IV Flush (NS 3 ml) 3 ml PER PROTOCOL IV ; Start 12/01/18 at 16:30 Ondansetron HCl (Zofran Inj) 4 mg Q6H PRN IV NAUSEA/VOMITING; Start 12/01/18 at 16:30 Docusate Sodium (Colace) 100 mg Q12H PRN PO .CONSTIPATION; Start 12/01/18 at 16:30 Magnesium Hydroxide (Milk Of Mag) 30 ml DAILY PRN PO .CONSTIPATION; Start 12/01/18 at 16:30 Enoxaparin Sodium (Lovenox) 30 mg DAILY SC Last administered on 12/03/18at 10:05; Admin Dose 30 MG; Start 12/02/18 at 09:00 Albuterol (Proventil 0.083% (Neb)) 2.5 mg Q2H RESP THERAPY PRN HHN SHORTNESS OF BREATH; Start 12/01/18 at 18:00 Amiodarone HCl 900 mg/Dextrose 500 ml @ 0 mls/hr Q0M IV Last administered on 12/01/18at 20:02; Admin Dose 33.3 MLS/HR; Start 12/01/18 at 19:30 Piperacillin Sod/ Tazobactam Sod 100 ml @ 200 mls/hr Q8 IVPB Last administered on 12/03/18at 05:53; Admin Dose 200 MLS/HR; Start 12/01/18 at 22:00 Vancomycin HCl (Vanco Iv Per Pharmacy) VANCOMYCIN PER PHARMACY PER PROTOCOL XX ; Start 12/01/18 at 21:30 Vancomycin HCl 250 ml @ 125 mls/hr Q24H IVPB Last administered on 12/03/18at 12:10; Admin Dose 125 MLS/HR; Start 12/02/18 at 12:00 Valproate Sodium 125 mg/Sodium Chloride 51.25 ml @ 55 mls/hr QHS IVPB Last administered on 12/02/18at 21:00; Admin Dose 55 MLS/HR; Start 12/02/18 at 21:00 Hydralazine HCl (Apresoline) 10 mg Q4H PRN IV ELEVATED BLOOD PRESSURE; Start 12/03/18 at 09:00 Multivitamins (Multivitamin) 30 ml DAILY GTB Last administered on 12/03/18at 12:09; Admin Dose 30 ML; Start 12/03/18 at 12:00 Ferrous Sulfate (Feosol Liquid Cup) 300 mg DAILY NGT Last administered on 12/03/18at 12:09; Admin Dose 300 MG; Start 12/03/18 at 12:00 Allergies: Coded Allergies: No Known Allergy (Unverified , 12/01/18) Past Surgical History Past Surgical Hx: other (unknown) Social History Alcohol Use: none Smoking Status: Never smoker Drug Use: none, other Exam/Review of Systems Exam Vitals Vital Signs Date Temp Pulse Resp B/P (MAP) Pulse Ox O2 O2 Flow FiO2 Time Delivery Rate 12/03/18 74 12:00 12/03/18 15 133/88 100 10:00 (103) 12/03/18 Mask 09:00 12/03/18 8.0 08:00 12/03/18 99.0 04:00 12/01/18 50 21:50 Intake and Output 12/02/18 12/02/18 12/03/18 1515:00 23:00 07:00 IntakeIntake Total 788.6 ml 598.1 ml 348.1 ml OutputOutput Total 575 ml 400 ml 310 ml BalanceBalance 213.6 ml 198.1 ml 38.1 ml Constitutional: non-verbal, distress Head: normocephalic Neck: supple, non-tender Respiratory: congested cough, diminished breath sounds Cardiovascular: regular rate and rhythm, nl pulses Gastrointestinal: soft Extremities: normal pulses Neurological: other (uncoopertaive for neuro exam ) Results Result Diagram: 12/03/18 0430 12/03/18 0430 Results 24hrs Laboratory Tests Test 12/02/18 22:49 12/03/18 04:30 Blood Gas Specimen Source Blood arterial Arterial Blood Date Drawn 12/02/2018 11:10:51 PM Arterial Blood pH (Temp corrected) 7.402 Arterial Blood pCO2 (Temp correct) 31.3 L Arterial Blood pO2 (Temp corrected) 69.5 L Arterial Blood HCO3 19.0 L Arterial Blood Base Excess -4.6 L Arterial Blood Oxygen Saturation 94.0 L Leonardo Test ACCEPTAB Arterial Blood Gas Puncture Site Right Radial Arterial Blood Carboxyhemoglobin 0.3 Arterial Blood Methemoglobin 0.3 Blood Gas A-a O2 Differential 388.8 H Oxyhemoglobin Percent 93.4 Blood Gas Temperature 37.0 Blood Gas Actual Respiration Rate 28 Blood Gas Modality MASK - SIMPLE FiO2 69.0 Blood Gas Notified Whom [facility].H. Blood Gas Notified Time 12/02/2018 11:14:53 PM White Blood Count 11.6 #H Red Blood Count 3.54 L Hemoglobin 10.7 L Hematocrit 33.6 L Mean Corpuscular Volume 94.9 Mean Corpuscular Hemoglobin 30.2 Mean Corpuscular Hemoglobin Concent 31.8 L Red Cell Distribution Width 15.9 H Platelet Count 232 Mean Platelet Volume 12.2 H Immature Granulocytes % 1.600 H Neutrophils % 87.9 H Lymphocytes % 6.7 L Monocytes % 2.8 Eosinophils % 0.8 Basophils % 0.2 Nucleated Red Blood Cells % 0.0 Immature Granulocytes # 0.180 H Neutrophils # 10.2 H Lymphocytes # 0.8 Monocytes # 0.3 Eosinophils # 0.1 Basophils # 0.0 Nucleated Red Blood Cells # 0.0 Sodium Level 150 H Potassium Level 4.0 Chloride Level 122 H Carbon Dioxide Level 23 Anion Gap 5 Blood Urea Nitrogen 21 H Creatinine 1.00 Est Glomerular Filtrat Rate mL/min Glucose Level 107 # Lactic Acid Level 1.2 Calcium Level 8.2 L Magnesium Level 2.6 H Total Bilirubin 0.5 Direct Bilirubin 0.00 Indirect Bilirubin 0.5 Aspartate Amino Transf (AST/SGOT) 99 #H Alanine Aminotransferase (ALT/SGPT) 57 Alkaline Phosphatase 132 H Ammonia < 9 L Total Protein 5.3 L Albumin 2.2 L Globulin 3.10 Albumin/Globulin Ratio 0.70 Medications Medication Current Medications Acetaminophen (Tylenol Tab) 650 mg Q4H PRN PO MILD PAIN LEVEL 1-3; Start 12/01/18 at 16:30 Bisacodyl (Dulcolax) 10 mg Q24H PRN PO CONSTIPATION; Start 12/01/18 at 16:30 Magnesium Hydroxide (Milk Of Mag) 30 ml Q24H PO Last administered on 12/02/18at 17:32; Admin Dose 30 ML; Start 12/01/18 at 16:30 IV Flush (NS 3 ml) 3 ml PER PROTOCOL IV ; Start 12/01/18 at 16:30 Ondansetron HCl (Zofran Inj) 4 mg Q6H PRN IV NAUSEA/VOMITING; Start 12/01/18 at 16:30 Docusate Sodium (Colace) 100 mg Q12H PRN PO .CONSTIPATION; Start 12/01/18 at 16:30 Magnesium Hydroxide (Milk Of Mag) 30 ml DAILY PRN PO .CONSTIPATION; Start 12/01/18 at 16:30 Enoxaparin Sodium (Lovenox) 30 mg DAILY SC Last administered on 12/03/18at 10:05; Admin Dose 30 MG; Start 12/02/18 at 09:00 Albuterol (Proventil 0.083% (Neb)) 2.5 mg Q2H RESP THERAPY PRN HHN SHORTNESS OF BREATH; Start 12/01/18 at 18:00 Amiodarone HCl 900 mg/Dextrose 500 ml @ 0 mls/hr Q0M IV Last administered on 12/01/18at 20:02; Admin Dose 33.3 MLS/HR; Start 12/01/18 at 19:30 Piperacillin Sod/ Tazobactam Sod 100 ml @ 200 mls/hr Q8 IVPB Last administered on 12/03/18at 05:53; Admin Dose 200 MLS/HR; Start 12/01/18 at 22:00 Vancomycin HCl (Vanco Iv Per Pharmacy) VANCOMYCIN PER PHARMACY PER PROTOCOL XX ; Start 12/01/18 at 21:30 Vancomycin HCl 250 ml @ 125 mls/hr Q24H IVPB Last administered on 12/03/18at 12:10; Admin Dose 125 MLS/HR; Start 12/02/18 at 12:00 Valproate Sodium 125 mg/Sodium Chloride 51.25 ml @ 55 mls/hr QHS IVPB Last administered on 12/02/18at 21:00; Admin Dose 55 MLS/HR; Start 12/02/18 at 21:00 Hydralazine HCl (Apresoline) 10 mg Q4H PRN IV ELEVATED BLOOD PRESSURE; Start 12/03/18 at 09:00 Multivitamins (Multivitamin) 30 ml DAILY GTB Last administered on 12/03/18at 12:09; Admin Dose 30 ML; Start 12/03/18 at 12:00 Ferrous Sulfate (Feosol Liquid Cup) 300 mg DAILY NGT Last administered on 12/03/18at 12:09; Admin Dose 300 MG; Start 12/03/18 at 12:00 SALAZAR MEDEL MD Dec 03, 2018 12:28
--- NOTE | 2018-12-03 15:07 | PN ---
DATE: 12/03/2018 SUBJECTIVE: Patient is lethargic, in no distress, afebrile with a T-max yesterday of 101.4. WBC tod ay 11.6, platelets 232, neutrophils 87.9, BUN 21, creatinine 1. MICROBIOLOGY: Urine culture grew E. coli. Blood culture growing gram-negative rods and staph specie s. DIAGNOSTICS: Chest x-ray this morning revealed increase in pulmonary vascular congestion and bibasil ar opacities. A CT of the brain yesterday revealed no evidence of acute intracranial pathology. INDWELLINGS: NG tube, Trent catheter, right subclavian triple-lumen catheter. ANTIMICROBIALS: 1. Vancomycin. 2. Zosyn. PHYSICAL EXAMINATION: GENERAL: This is well-developed, chronically ill-appearing, elderly man who is in no distress. HEENT: Head atraumatic, normocephalic. NECK: Supple. CHEST: Rise symmetrical. Breath sounds diminished to bases. HEART: S1, S2. ABDOMEN: Soft, bowel tones present. ASSESSMENT: 1. Severe sepsis with shock on admission. 2. Status post rapid atrial fibrillation, patient is converted to sinus rhythm. 3. Urinary tract infection with bacteremia. 4. Acute on chronic encephalopathy. PLAN: The patient is stable, we will discontinue vancomycin, continue Zosyn, await for repeat blood cultures, await for final cultures. Dictated By: ALYSON FONTANEZ [employer] for ELSY PIERRE MD NI/NTS Conf#: [id number] DID#: [id number] CC: CATHERINE RENAE MD;*EndCC*
--- NOTE | 2018-12-03 15:54 | CONS ---
Assessment/Plan Assessment/Plan Hospital Course (Demo Recall) Septic shock, off IV pressor Paroxysmal atrial flutter, currently sinus rhythm Encephalopathy Renal dysfunction Respiratory failure Pt off iv pressor Currently SR Change amiodarone to p.o. AB as per ID Consultation Date/Type/Reason Admit Date/Time Dec 01, 2018 at 17:12 Initial Consult Date 12/02/18 Type of Consult Cardiology Requesting Provider: QASIM HWANG Date/Time of Note DATE: 12/03/18 TIME: 15:52 24 HR Interval Summary Free Text/Dictation More awake today, no apparent distress Exam/Review of Systems Vital Signs Vitals Vital Signs Date Temp Pulse Resp B/P (MAP) Pulse Ox O2 O2 Flow FiO2 Time Delivery Rate 12/03/18 74 12:00 12/03/18 98.6 12:00 12/03/18 15 133/88 100 10:00 (103) 12/03/18 Mask 09:00 12/03/18 8.0 08:00 12/01/18 50 21:50 Intake and Output 12/02/18 12/02/18 12/03/18 1515:00 23:00 07:00 IntakeIntake Total 788.6 ml 598.1 ml 348.1 ml OutputOutput Total 575 ml 400 ml 310 ml BalanceBalance 213.6 ml 198.1 ml 38.1 ml Exam Exam More awake, no apparent distress Head: normocephalic Respiratory: other (Coarse breath sounds bilaterally, no wheezing) Cardiovascular: regular rate and rhythm (S1-S2 heard) Gastrointestinal: soft, non-tender, bowel sounds Extremities: other (No significant edema) Labs Result Diagram: 12/03/18 0430 12/03/18 0430 Results 24hrs Laboratory Tests Test 12/02/18 22:49 12/03/18 04:30 Blood Gas Specimen Source Blood arterial Arterial Blood Date Drawn 12/02/2018 11:10:51 PM Arterial Blood pH (Temp corrected) 7.402 Arterial Blood pCO2 (Temp correct) 31.3 L Arterial Blood pO2 (Temp corrected) 69.5 L Arterial Blood HCO3 19.0 L Arterial Blood Base Excess -4.6 L Arterial Blood Oxygen Saturation 94.0 L Leonardo Test ACCEPTAB Arterial Blood Gas Puncture Site Right Radial Arterial Blood Carboxyhemoglobin 0.3 Arterial Blood Methemoglobin 0.3 Blood Gas A-a O2 Differential 388.8 H Oxyhemoglobin Percent 93.4 Blood Gas Temperature 37.0 Blood Gas Actual Respiration Rate 28 Blood Gas Modality MASK - SIMPLE FiO2 69.0 Blood Gas Notified Whom [facility]H. Blood Gas Notified Time 12/02/2018 11:14:53 PM White Blood Count 11.6 #H Red Blood Count 3.54 L Hemoglobin 10.7 L Hematocrit 33.6 L Mean Corpuscular Volume 94.9 Mean Corpuscular Hemoglobin 30.2 Mean Corpuscular Hemoglobin Concent 31.8 L Red Cell Distribution Width 15.9 H Platelet Count 232 Mean Platelet Volume 12.2 H Immature Granulocytes % 1.600 H Neutrophils % 87.9 H Lymphocytes % 6.7 L Monocytes % 2.8 Eosinophils % 0.8 Basophils % 0.2 Nucleated Red Blood Cells % 0.0 Immature Granulocytes # 0.180 H Neutrophils # 10.2 H Lymphocytes # 0.8 Monocytes # 0.3 Eosinophils # 0.1 Basophils # 0.0 Nucleated Red Blood Cells # 0.0 Sodium Level 150 H Potassium Level 4.0 Chloride Level 122 H Carbon Dioxide Level 23 Anion Gap 5 Blood Urea Nitrogen 21 H Creatinine 1.00 Est Glomerular Filtrat Rate mL/min Glucose Level 107 # Lactic Acid Level 1.2 Calcium Level 8.2 L Magnesium Level 2.6 H Total Bilirubin 0.5 Direct Bilirubin 0.00 Indirect Bilirubin 0.5 Aspartate Amino Transf (AST/SGOT) 99 #H Alanine Aminotransferase (ALT/SGPT) 57 Alkaline Phosphatase 132 H Ammonia < 9 L Total Protein 5.3 L Albumin 2.2 L Globulin 3.10 Albumin/Globulin Ratio 0.70 Medications Medications Current Medications Acetaminophen (Tylenol Tab) 650 mg Q4H PRN PO MILD PAIN LEVEL 1-3; Start 12/01/18 at 16:30 Bisacodyl (Dulcolax) 10 mg Q24H PRN PO CONSTIPATION; Start 12/01/18 at 16:30 Magnesium Hydroxide (Milk Of Mag) 30 ml Q24H PO Last administered on 12/02/18at 17:32; Admin Dose 30 ML; Start 12/01/18 at 16:30 IV Flush (NS 3 ml) 3 ml PER PROTOCOL IV ; Start 12/01/18 at 16:30 Ondansetron HCl (Zofran Inj) 4 mg Q6H PRN IV NAUSEA/VOMITING; Start 12/01/18 at 16:30 Docusate Sodium (Colace) 100 mg Q12H PRN PO .CONSTIPATION; Start 12/01/18 at 16:30 Magnesium Hydroxide (Milk Of Mag) 30 ml DAILY PRN PO .CONSTIPATION; Start 12/01/18 at 16:30 Enoxaparin Sodium (Lovenox) 30 mg DAILY SC Last administered on 12/03/18at 10:05; Admin Dose 30 MG; Start 12/02/18 at 09:00 Albuterol (Proventil 0.083% (Neb)) 2.5 mg Q2H RESP THERAPY PRN HHN SHORTNESS OF BREATH; Start 12/01/18 at 18:00 Amiodarone HCl 900 mg/Dextrose 500 ml @ 0 mls/hr Q0M IV Last administered on 12/01/18at 20:02; Admin Dose 33.3 MLS/HR; Start 12/01/18 at 19:30 Piperacillin Sod/ Tazobactam Sod 100 ml @ 200 mls/hr Q8 IVPB Last administered on 12/03/18at 15:39; Admin Dose 200 MLS/HR; Start 12/01/18 at 22:00 Vancomycin HCl (Vanco Iv Per Pharmacy) VANCOMYCIN PER PHARMACY PER PROTOCOL XX ; Start 12/01/18 at 21:30 Vancomycin HCl 250 ml @ 125 mls/hr Q24H IVPB Last administered on 12/03/18at 1 2:10; Admin Dose 125 MLS/HR; Start 12/02/18 at 12:00 Valproate Sodium 125 mg/Sodium Chloride 51.25 ml @ 55 mls/hr QHS IVPB Last administered on 12/02/18at 21:00; Admin Dose 55 MLS/HR; Start 12/02/18 at 21:00 Hydralazine HCl (Apresoline) 10 mg Q4H PRN IV ELEVATED BLOOD PRESSURE; Start 12/03/18 at 09:00 Multivitamins (Multivitamin) 30 ml DAILY GTB Last administered on 12/03/18at 12:09; Admin Dose 30 ML; Start 12/03/18 at 12:00 Ferrous Sulfate (Feosol Liquid Cup) 300 mg DAILY NGT Last administered on 12/03/18at 12:09; Admin Dose 300 MG; Start 12/03/18 at 12:00 Miscellaneous Information (*Rx Drug Level Order Reminder*) VANCO TROUGH @ 1,100 1100 ONCE XX ; Start 12/04/18 at 11:00; Stop 12/04/18 at 11:01 Manoj Biggs DO Dec 03, 2018 15:54
[2018-12-03] MEDS: MAGNESIUM HYDROXIDE 30ML CUP PO SCH (17:07)
--- NOTE | 2018-12-03 17:30 | RADRPT ---
Echocardiogram Report Patient Name: HARPREET BLACKWELLPatient ID: [id number] : 10 (88y 9m)Study Date: 12/02/2018 7:52:57 AM Gender: Samiion #: [id number] Tech: Jose M Tan [place] Location: 106 Ref.Physician: CATHERINE RENAE Height(Cm): BSA: Weight(Kg): Quality: Technically Difficult StudyOrder Physician: CATHERINE RENAE Account #: Procedures: Echocardiographic Report: Transthoracic echocardiogram with complete 2D, M-Mode, and doppler examination. Indications: Evaluate Left Ventricular function, and Elevated B-type natriuretic peptide. Measurements: 2D/M Mode Doppler Measurement Value Normal Range Measurement Value Normal Range LVIDd 2D 2.5 [ 4.2 - 5.8 ] cm AV Peak Solitario 1.3 [ 100.0 - 170.0 ] cm/sec LVIDs 2D 2.0 [ 2.5 - 4.0 ] cm AV Peak PG 7.0 [ 2.0 - 9.0 ] mmHg LVPWd 2D 1.1 [ 0.6 - 1.0 ] cm LVOT Peak Solitario 1.1 [ 70.0 - 110.0 ] cm/sec IVSd 2D 1.2 [ 0.6 - 1.0 ] cm LVOT Peak PG 5.0 [ 2.0 - 6.0 ] mmHg AoR Diam 2D 3.2 [ 2.6 - 3.4 ] cm MV E Peak Solitario 1.0 [ 60.0 - 130.0 ] cm/sec EDV 2D 22.1 [ 62.0 - 150.0 ] ml MV A Peak Solitario 0.6 [ 100.0 - 120.0 ] cm/sec ESV 2D 11.9 [ 21.0 - 61.0 ] ml MV E/A 1.6 [ 0.8 - 1.5 ] ratio EF 2D 46.2 [ 52.0 - 72.0 ] percent MV Decel Time 165 [ 104 - 258 ] msec LA Dimen 2D 2.7 [ 3.0 - 4.0 ] cm Lat E` Solitario 0.1 [ 10.0 - 15.0 ] cm/sec Lateral E/E` 6.8 [ 1.0 - 2.0 ] ratio Med E` Solitario 0.1 cm/sec MV E/A 1.6 [ 0.8 - 1.5 ] ratio Findings: Left Ventricle: Overall, normal left ventricular systolic function. Not all segments visualized. Normal left ventricular cavity size. Mild concentric left ventricular hypertrophy. Ejection fraction is visually estimated at 60 %. Abnormal Diastolic Function. Right Ventricle: Normal right ventricular size. Normal right ventricular systolic function. Left Atrium: The left atrium is normal in size. Right Atrium: The right atrium is normal in size. Mitral Valve: Mitral valve leaflets appear mildly thickened. Mild mitral annular calcification. Trace mitral regurgitation. Aortic Valve: Normal appearance of the aortic valve. No significant aortic stenosis or insufficiency. Tricuspid Valve: Normal appearance and function of the tricuspid valve with trace physiologic regurgitation. Pulmonic Valve: Pulmonic valve not well visualized. Pericardium: Normal pericardium with no significant pericardial effusion. Aorta: Normal aortic root. IVC: Normal inferior vena cava with poor inspiratory collapse consistent with elevated right atrial pressures. Conclusions: Overall, normal left ventricular systolic function. Not all segments visualized. Normal left ventricular cavity size. Mild concentric left ventricular hypertrophy. Ejection fraction is visually estimated at 60 %. Abnormal Diastolic Function. Normal right ventricular size. Normal right ventricular systolic function. No significant valvular stenosis or regurgitation seen. Normal pericardium with no significant pericardial effusion. Electronically Signed By: Manoj Biggs 2018-12-03 17:29:13 PDT
[2018-12-03] MEDS: DEXTROSE 5% 1,000 ML IV SCH (20:54)
[2018-12-03] MEDS: AMIODARONE 200 MG TAB NGT SCH (21:05)
[2018-12-03] MEDS: VALPROATE INJ 125 MG in SOD CHLORIDE 0.9% 50 ML IVPB SCH (21:05)
[2018-12-04] VITALS (23 sets, daily range): BP systolic 88–183; BP diastolic 57–114; PULSE 75–113; RESP 18–20
[2018-12-04] MEDS: PIPER-TAZO 3.375 GM IV (PMX) 100 ML IVPB SCH ×3 (05:23→21:18)
--- NOTE | 2018-12-04 09:12 | PN ---
Date/Time of Note Date/Time of Note DATE: 12/04/18 TIME: 09:10 Objective Vitals Vital Signs Date Temp Pulse Resp B/P (MAP) Pulse Ox O2 O2 Flow FiO2 Time Delivery Rate 12/04/18 110 08:00 12/04/18 18 138/84 93 Nasal 06:00 (102) Cannula 12/04/18 4.0 04:40 12/04/18 98.9 04:00 12/01/18 50 21:50 Intake and Output 12/03/18 12/03/18 12/04/18 1515:00 23:00 07:00 IntakeIntake Total 0 ml 1100 ml 1340 ml OutputOutput Total 450 ml 650 ml 825 ml BalanceBalance -450 ml 450 ml 515 ml Results Result Diagram: 12/04/18 0508 12/04/18 0508 Medications Medications Current Medications Acetaminophen (Tylenol Tab) 650 mg Q4H PRN PO MILD PAIN LEVEL 1-3 Last administered on 12/03/18at 17:07; Admin Dose 650 MG; Start 12/01/18 at 16:30 Bisacodyl (Dulcolax) 10 mg Q24H PRN PO CONSTIPATION; Start 12/01/18 at 16:30 Magnesium Hydroxide (Milk Of Mag) 30 ml Q24H PO Last administered on 12/03/18at 17:07; Admin Dose 30 ML; Start 12/01/18 at 16:30 IV Flush (NS 3 ml) 3 ml PER PROTOCOL IV ; Start 12/01/18 at 16:30 Ondansetron HCl (Zofran Inj) 4 mg Q6H PRN IV NAUSEA/VOMITING; Start 12/01/18 at 16:30 Docusate Sodium (Colace) 100 mg Q12H PRN PO .CONSTIPATION; Start 12/01/18 at 16:30 Magnesium Hydroxide (Milk Of Mag) 30 ml DAILY PRN PO .CONSTIPATION; Start 12/01/18 at 16:30 Enoxaparin Sodium (Lovenox) 30 mg DAILY SC Last administered on 12/03/18at 10:05; Admin Dose 30 MG; Start 12/02/18 at 09:00 Albuterol (Proventil 0.083% (Neb)) 2.5 mg Q2H RESP THERAPY PRN HHN SHORTNESS OF BREATH; Start 12/01/18 at 18:00 Piperacillin Sod/ Tazobactam Sod 100 ml @ 200 mls/hr Q8 IVPB Last administered on 12/04/18 05:23; Admin Dose 200 MLS/HR; Start 12/01/18 at 22:00 Vancomycin HCl (Vanco Iv Per Pharmacy) VANCOMYCIN PER PHARMACY PER PROTOCOL XX ; Start 12/01/18 at 21:30 Vancomycin HCl 250 ml @ 125 mls/hr Q24H IVPB Last administered on 12/03/18at 12:10; Admin Dose 125 MLS/HR; Start 12/02/18 at 12:00 Valproate Sodium 125 mg/Sodium Chloride 51.25 ml @ 55 mls/hr QHS IVPB Last administered on 12/03/18 21:05; Admin Dose 55 MLS/HR; Start 12/02/18 at 21:00 Hydralazine HCl (Apresoline) 10 mg Q4H PRN IV ELEVATED BLOOD PRESSURE Last administered on 12/04/18 05:33; Admin Dose 10 MG; Start 12/03/18 at 09:00 Multivitamins (Multivitamin) 30 ml DAILY GTB Last administered on 12/03/18at 12:09; Admin Dose 30 ML; Start 12/03/18 at 12:00 Ferrous Sulfate (Feosol Liquid Cup) 300 mg DAILY NGT Last administered on 12/03/18 12:09; Admin Dose 300 MG; Start 12/03/18 at 12:00 Miscellaneous Information (*Rx Drug Level Order Reminder*) VANCO TROUGH @ 1,100 1100 ONCE XX ; Start 12/04/18 at 11:00; Stop 12/04/18 at 11:01 Amiodarone HCl (Cordarone) 200 mg BID NGT Last administered on 12/03/18 21:05; Admin Dose 200 MG; Start 12/03/18 at 21:00 Dextrose 1,000 ml @ 70 mls/hr [id number] IV Last administered on 12/03/18at 20:54; Admin Dose 70 MLS/HR; Start 12/03/18 at 20:30 VTE Prophylaxis Risk score (from Nsg)>0 risk: 7 SCD applied (from Ns): No SCD contraindication: other Lines/Catheters IV Catheter Type: Early in Place: Yes Cont'd early catheter reason: terminal illness/intractable pain Assessment/Plan Hospital Course Subjective Patient still encephalopathic, however has improved since yesterday, incidental low blood pressure after running high the entire night, nursing staff to reevaluate Objective Physical exam General: Patient is laying in bed, on nasal cannula Mentation: Patient is arousable but not oriented Head: Normocephalic atraumatic Eyes: EOMI, but very difficult to assess as patient tightly close his eyes Neck: Supple, nontender, midline Respiratory: Coarse to auscultation bilaterally Cardiovascular: regular rate, no obvious murmurs Gastrointestinal: non-tender to palpation, bowel sounds heard. Neurological: Moves all extremities spontaneously to noxious stimuli but no coordinated movement for now Skin: No new skin lesions Assessment/Plan septic shock secondary to UTI/bacteremia/PNA -IV antibiotic, broad-spectrum, infectious disease on board -E. coli and coag negative staph on blood cultures -Now off pressors -Resolving Bacteremia -E. coli and coag negative staph -Continue antibiotics per infectious disease recommendations PNA -cont abx per ID recs Acute on chronic encephalopathy, resolving -Patient's baseline is alert and oriented x1 per nursing staff at the shelter -Patient likely was able to eat and ambulate according to long term facility -Patient does not have a conservator according to forensic social worker and long term facility, patient also has no family and interdisciplinary faculty at [facility] was making decisions. -CT head only shows chronic infarct -Encephalopathy is likely due to bacteremia and UTI. Arrhythmia, likely afib-aflutter - seen on EKG - Cardiology consultation appreciated - ECHO ordered -Now transitioning over to amiodarone p.o. MORTEZA -Resolved -Continue volume status, monitor closely, Hypernatremia -Nephrology consulted -On D5W per nephrology elevated BNP -Patient's chest x-ray does show some pulmonary edema, will defer to cardiology for the recommendations -Pulmonology also on board UTI - UA noted - urine culture noted - broad spectrum antibiotic started - ID consulted Acute respiratory distress -Now off BiPAP -Pulmonology consulted, Hypertension -Restart home medications when able, use PRN for now dementia -Baseline per long term facility was alert and oriented x1 Depression? - on depakote, will cont IV Diet - will order speech evaluation -NG tube with tube feeds in the meantime as patient is still encephalopathic Code status - Full Code Disposition -Continue ICU care, continue antibiotics per infectious disease's patient does have bacteremia -Monitor blood pressure as it is low -More than 40 minutes of critical care time was spent on this evaluation QASIM HWANG Dec 04, 2018 09:12
[2018-12-04] MEDS: MULTIVITAMINS 30 ML CUP GTB SCH (09:14)
[2018-12-04] MEDS: FERROUS SULFATE 60 MG/ML 5ML CUP NGT SCH (09:15)
[2018-12-04] MEDS: AMIODARONE 200 MG TAB NGT SCH ×2 (09:16→20:23)
--- NOTE | 2018-12-04 09:16 | CONS ---
Assessment/Plan Assessment/Plan Assessment/Plan (Daily) Chest x-ray from today was reviewed which is showing bibasilar pneumonia. Assessment and recommendations; 1. Patient admitted with E. coli UTI as well as bacteremia with bilateral pneumonia as well possibly aspiration. Currently on appropriate antimicrobial regimen. 2. History of dementia. 3. Improving hypernatremia. 4. Improving leukocytosis. 5. History of seizure disorder. Continue current supportive care. Consultation Date/Type/Reason Admit Date/Time Dec 01, 2018 at 17:12 Initial Consult Date 12/02/18 Type of Consult Pulmonary/critical care Patient is a 88-year-old male who was transferred over from retirement to the hospital because of altered mental status. Patient has been diagnosed with sepsis due to UTI as well as cardiac arrhythmia. Was a time I saw him in ICU, patient is on nasal cannula but is noncommunicative. History is been obtained from medical records. Patient did not appear to be in any distress. Past medical history; 1. Apparent dementia. 2. Anemia 3. History of seizure disorder. Medications; reviewed. Allergies; none. Social history, family history, occupational history is are not available. Review of system; unable to be obtained. General exam; elderly male, noncommunicative. Currently no distress. Requesting Provider: QASIM HWANG Date/Time of Note DATE: 12/04/18 TIME: 09:15 24 HR Interval Summary Free Text/Dictation Patient condition is clinically stable. Has remained hemodynamically stable. Patient however still remains completely unresponsive. General exam; elderly male, currently no distress. Exam/Review of Systems Exam Vitals Vital Signs Date Temp Pulse Resp B/P (MAP) Pulse Ox O2 O2 Flow FiO2 Time Delivery Rate 12/04/18 110 08:00 12/04/18 18 138/84 93 Nasal 06:00 (102) Cannula 12/04/18 4.0 04:40 12/04/18 98.9 04:00 12/01/18 50 21:50 Intake and Output 12/03/18 12/03/18 12/04/18 1414:59 22:59 06:59 IntakeIntake Total 0 ml 1100 ml 1340 ml OutputOutput Total 450 ml 650 ml 825 ml BalanceBalance -450 ml 450 ml 515 ml Exam H EENT exam; supple neck, no JVD. No lymphadenopathy. Midline trachea. No thyromegaly. Patient is edentulous. Nasogastric tube in place. Chest exam; diminished breath sounds bilaterally. S1-S2 audible, no murmurs. Regular rhythm. Abdomen exam; soft, scaphoid. No organomegaly. Bowel sounds audible. Extremity exam; no peripheral edema. GLASS CUTTER exam; patient remains unresponsive. Results Result Diagram: 12/04/18 0508 12/04/18 0508 Results 24hrs Laboratory Tests Test 12/04/18 05:08 White Blood Count 9.8 Red Blood Count 3.89 L Hemoglobin 11.7 L Hematocrit 36.8 L Mean Corpuscular Volume 94.6 Mean Corpuscular Hemoglobin 30.1 Mean Corpuscular Hemoglobin Concent 31.8 L Red Cell Distribution Width 15.9 H Platelet Count 263 Mean Platelet Volume 11.8 H Immature Granulocytes % 2.200 H Neutrophils % 82.5 H Lymphocytes % 10.9 L Monocytes % 1.9 Eosinophils % 2.3 Basophils % 0.2 Nucleated Red Blood Cells % 0.0 Immature Granulocytes # 0.210 H Neutrophils # 8.1 H Lymphocytes # 1.1 Monocytes # 0.2 L Eosinophils # 0.2 Basophils # 0.0 Nucleated Red Blood Cells # 0.0 Sodium Level 148 H Potassium Level 3.6 Chloride Level 116 H Carbon Dioxide Level 28 Anion Gap 4 L Blood Urea Nitrogen 18 Creatinine 0.96 Est Glomerular Filtrat Rate mL/min Glucose Level 194 Calcium Level 8.6 Phosphorus Level 1.0 L Magnesium Level 2.2 Iron Level 21 L Total Iron Binding Capacity 202 L Percent Iron Saturation 10 L Total Bilirubin 0.4 Direct Bilirubin 0.00 Indirect Bilirubin 0.4 Aspartate Amino Transf (AST/SGOT) 150 #H Alanine Aminotransferase (ALT/SGPT) 85 H Alkaline Phosphatase 182 H Total Protein 5.5 L Albumin 2.3 L Medications Medication Current Medications Acetaminophen (Tylenol Tab) 650 mg Q4H PRN PO MILD PAIN LEVEL 1-3 Last administered on 12/03/18at 17:07; Admin Dose 650 MG; Start 12/01/18 at 16:30 Bisacodyl (Dulcolax) 10 mg Q24H PRN PO CONSTIPATION; Start 12/01/18 at 16:30 Magnesium Hydroxide (Milk Of Mag) 30 ml Q24H PO Last administered on 12/03/18at 17:07; Admin Dose 30 ML; Start 12/01/18 at 16:30 IV Flush (NS 3 ml) 3 ml PER PROTOCOL IV ; Start 12/01/18 at 16:30 Ondansetron HCl (Zofran Inj) 4 mg Q6H PRN IV NAUSEA/VOMITING; Start 12/01/18 at 16:30 Docusate Sodium (Colace) 100 mg Q12H PRN PO .CONSTIPATION; Start 12/01/18 at 16:30 Magnesium Hydroxide (Milk Of Mag) 30 ml DAILY PRN PO .CONSTIPATION; Start 12/01/18 at 16:30 Enoxaparin Sodium (Lovenox) 30 mg DAILY SC Last administered on 12/03/18at 10: 05; Admin Dose 30 MG; Start 12/02/18 at 09:00 Albuterol (Proventil 0.083% (Neb)) 2.5 mg Q2H RESP THERAPY PRN HHN SHORTNESS OF BREATH; Start 12/01/18 at 18:00 Piperacillin Sod/ Tazobactam Sod 100 ml @ 200 mls/hr Q8 IVPB Last administered on 12/04/18at 05:23; Admin Dose 200 MLS/HR; Start 12/01/18 at 22:00 Vancomycin HCl (Vanco Iv Per Pharmacy) VANCOMYCIN PER PHARMACY PER PROTOCOL XX ; Start 12/01/18 at 21:30 Vancomycin HCl 250 ml @ 125 mls/hr Q24H IVPB Last administered on 12/03/18at 12:10; Admin Dose 125 MLS/HR; Start 12/02/18 at 12:00 Valproate Sodium 125 mg/Sodium Chloride 51.25 ml @ 55 mls/hr QHS IVPB Last administered on 12/03/18at 21:05; Admin Dose 55 MLS/HR; Start 12/02/18 at 21:00 Hydralazine HCl (Apresoline) 10 mg Q4H PRN IV ELEVATED BLOOD PRESSURE Last administered on 12/04/18at 05:33; Admin Dose 10 MG; Start 12/03/18 at 09:00 Multivitamins (Multivitamin) 30 ml DAILY GTB Last administered on 12/03/18at 12:09; Admin Dose 30 ML; Start 12/03/18 at 12:00 Ferrous Sulfate (Feosol Liquid Cup) 300 mg DAILY NGT Last administered on 12/03/18at 12:09; Admin Dose 300 MG; Start 12/03/18 at 12:00 Miscellaneous Information (*Rx Drug Level Order Reminder*) VANCO TROUGH @ 1,100 1100 ONCE XX ; Start 12/04/18 at 11:00; Stop 12/04/18 at 11:01 Amiodarone HCl (Cordarone) 200 mg BID NGT Last administered on 12/03/18at 21:05; Admin Dose 200 MG; Start 12/03/18 at 21:00 Dextrose 1,000 ml @ 70 mls/hr [id number] IV Last administered on 12/03/18at 20:54; Admin Dose 70 MLS/HR; Start 12/03/18 at 20:30 KENNEDY DIEHL Dec 04, 2018 09:16
[2018-12-04] MEDS: ENOXAPARIN 30 MG/0.3 ML SYG SC SCH (09:23)
[2018-12-04] MEDS ORDERED: LABETALOL HCL 20MG INJ IV PRN (09:30)
[2018-12-04] MEDS: DEXTROSE 5% 1,000 ML IV SCH (12:09)
[2018-12-04] MEDS: VANCOMYCIN 1 GM 250 ML IVPB SCH (12:10)
--- NOTE | 2018-12-04 13:02 | CONS ---
Assessment/Plan Assessment/Plan Assessment/Plan (Daily) 1. acute hypernatremia, due to free water deficit 2. septic shock due to PNA/UTI/bacteremia 3 acute UTI 4.acute hyoxic respiratory failure s/p BIPAP now 5. Acute on chronic encephalopathy 6. H/o HTN, CAD, dementia, depression, HLD, and osteoarthritis 7. Anemia of CKD with Iron deficiency Plan: Na improving , Continue IVF D5W at 80 cc/hr x 2 liter then stop IV ferrlecit 125 mg IV daily x 5 days for iron deficiency IV abx for sepsis, Renally dose all abx and monitor electorlytes will continue to follow up Consultation Date/Type/Reason Admit Date/Time Dec 01, 2018 at 17:12 Initial Consult Date 12/03/18 Type of Consult NEPHROLOGY Requesting Provider: QASIM HWANG Date/Time of Note DATE: 12/04/18 TIME: 13:02 Exam/Review of Systems Exam Vitals Vital Signs Date Temp Pulse Resp B/P (MAP) Pulse Ox O2 O2 Flow FiO2 Time Delivery Rate 12/04/18 87 12:00 12/04/18 110/65 98 10:00 (80) 12/04/18 Nasal 4.0 08:00 Cannula 12/04/18 18 06:00 12/04/18 98.9 04:00 12/01/18 50 21:50 Intake and Output 12/03/18 12/03/18 12/04/18 1515:00 23:00 07:00 IntakeIntake Total 0 ml 1100 ml 1340 ml OutputOutput Total 450 ml 650 ml 825 ml BalanceBalance -450 ml 450 ml 515 ml Exam Constitutional: non-verbal, distress Head: normocephalic Neck: supple, non-tender Respiratory: congested cough, diminished breath sounds Cardiovascular: regular rate and rhythm, nl pulses Gastrointestinal: soft Extremities: normal pulses Neurological: other (uncoopertaive for neuro exam ) Results Result Diagram: 12/04/18 0508 12/04/18 0508 Results 24hrs Laboratory Tests Test 12/04/18 05:08 12/04/18 11:00 White Blood Count 9.8 Red Blood Count 3.89 L Hemoglobin 11.7 L Hematocrit 36.8 L Mean Corpuscular Volume 94.6 Mean Corpuscular Hemoglobin 30.1 Mean Corpuscular Hemoglobin Concent 31.8 L Red Cell Distribution Width 15.9 H Platelet Count 263 Mean Platelet Volume 11.8 H Immature Granulocytes % 2.200 H Neutrophils % 82.5 H Lymphocytes % 10.9 L Monocytes % 1.9 Eosinophils % 2.3 Basophils % 0.2 Nucleated Red Blood Cells % 0.0 Immature Granulocytes # 0.210 H Neutrophils # 8.1 H Lymphocytes # 1.1 Monocytes # 0.2 L Eosinophils # 0.2 Basophils # 0.0 Nucleated Red Blood Cells # 0.0 Sodium Level 148 H Potassium Level 3.6 Chloride Level 116 H Carbon Dioxide Level 28 Anion Gap 4 L Blood Urea Nitrogen 18 Creatinine 0.96 Est Glomerular Filtrat Rate mL/min Glucose Level 194 Calcium Level 8.6 Phosphorus Level 1.0 L Magnesium Level 2.2 Iron Level 21 L Total Iron Binding Capacity 202 L Percent Iron Saturation 10 L Total Bilirubin 0.4 Direct Bilirubin 0.00 Indirect Bilirubin 0.4 Aspartate Amino Transf (AST/SGOT) 150 #H Alanine Aminotransferase (ALT/SGPT) 85 H Alkaline Phosphatase 182 H Total Protein 5.5 L Albumin 2.3 L Vancomycin Level Trough 5.4 L Medications Medication Current Medications Acetaminophen (Tylenol Tab) 650 mg Q4H PRN PO MILD PAIN LEVEL 1-3 Last administered on 12/03/18at 17:07; Admin Dose 650 MG; Start 12/01/18 at 16:30 Bisacodyl (Dulcolax) 10 mg Q24H PRN PO CONSTIPATION; Start 12/01/18 at 16:30 Magnesium Hydroxide (Milk Of Mag) 30 ml Q24H PO Last administered on 12/03/18at 17:07; Admin Dose 30 ML; Start 12/01/18 at 16:30 IV Flush (NS 3 ml) 3 ml PER PROTOCOL IV ; Start 12/01/18 at 16:30 Ondansetron HCl (Zofran Inj) 4 mg Q6H PRN IV NAUSEA/VOMITING; Start 12/01/18 at 16:30 Docusate Sodium (Colace) 100 mg Q12H PRN PO .CONSTIPATION; Start 12/01/18 at 16:30 Magnesium Hydroxide (Milk Of Mag) 30 ml DAILY PRN PO .CONSTIPATION; Start 12/01/18 at 16:30 Enoxaparin Sodium (Lovenox) 30 mg DAILY SC Last administered on 12/04/18at 09:23; Admin Dose 30 MG; Start 12/02/18 at 09:00 Albuterol (Proventil 0.083% (Neb)) 2.5 mg Q2H RESP THERAPY PRN HHN SHORTNESS OF BREATH; Start 12/01/18 at 18:00 Piperacillin Sod/ Tazobactam Sod 100 ml @ 200 mls/hr Q8 IVPB Last administered on 12/04/18at 05:23; Admin Dose 200 MLS/HR; Start 12/01/18 at 22:00 Vancomycin HCl (Vanco Iv Per Pharmacy) VANCOMYCIN PER PHARMACY PER PROTOCOL XX ; Start 12/01/18 at 21:30 Vancomycin HCl 250 ml @ 125 mls/hr Q24H IVPB Last administered on 12/04/18at 12:10; Admin Dose 125 MLS/HR; Start 12/02/18 at 12:00 Valproate Sodium 125 mg/Sodium Chloride 51.25 ml @ 55 mls/hr QHS IVPB Last administered on 12/03/18at 21:05; Admin Dose 55 MLS/HR; Start 12/02/18 at 21:00 Multivitamins (Multivitamin) 30 ml DAILY GTB Last administered on 12/04/18at 0 9:14; Admin Dose 30 ML; Start 12/03/18 at 12:00 Ferrous Sulfate (Feosol Liquid Cup) 300 mg DAILY NGT Last administered on 12/04/18at 09:15; Admin Dose 300 MG; Start 12/03/18 at 12:00 Amiodarone HCl (Cordarone) 200 mg BID NGT Last administered on 12/04/18at 09:16; Admin Dose 200 MG; Start 12/03/18 at 21:00 Dextrose 1,000 ml @ 70 mls/hr [id number] IV Last administered on 12/04/18at 12:09; Admin Dose 70 MLS/HR; Start 12/03/18 at 20:30 Labetalol HCl (Labetalol) 10 mg Q4H PRN IV sbp >160; Start 12/04/18 at 09:30 SALAZAR MEDEL MD Dec 04, 2018 13:02
[2018-12-04] MEDS: SOD FERRIC GLUC COMPLX 125 MG in SOD CHLORIDE 0.9% 100 ML IVPB SCH (15:46)
[2018-12-04] MEDS: MAGNESIUM HYDROXIDE 30ML CUP PO SCH (16:30)
--- NOTE | 2018-12-04 17:32 | CONS ---
Assessment/Plan Assessment/Plan Hospital Course (Demo Recall) Septic shock, off IV pressor Paroxysmal atrial flutter, currently sinus rhythm Encephalopathy Renal dysfunction Respiratory failure Pt off iv pressor Currently SR Continue p.o. amiodarone If blood pressure tolerates, consider spot diuretics AB as per ID Consultation Date/Type/Reason Admit Date/Time Dec 01, 2018 at 17:12 Initial Consult Date 12/02/18 Type of Consult Cardiology Requesting Provider: QASIM HWANG Date/Time of Note DATE: 12/04/18 TIME: 17:31 24 HR Interval Summary Free Text/Dictation Patient seen and examined Exam/Review of Systems Vital Signs Vitals Vital Signs Date Temp Pulse Resp B/P (MAP) Pulse Ox O2 O2 Flow FiO2 Time Delivery Rate 12/04/18 4.0 16:31 12/04/18 77 16:00 12/04/18 110/65 98 10:00 (80) 12/04/18 Nasal 08:00 Cannula 12/04/18 18 06:00 12/04/18 98.9 04:00 12/01/18 50 21:50 Intake and Output 12/03/18 12/03/18 12/04/18 1515:00 23:00 07:00 IntakeIntake Total 0 ml 1100 ml 1340 ml OutputOutput Total 450 ml 650 ml 825 ml BalanceBalance -450 ml 450 ml 515 ml Exam Exam Sleeping, no apparent distress Head: normocephalic Respiratory: other (Coarse breath sounds bilaterally, no wheezing) Cardiovascular: regular rate and rhythm (S1-S2 heard) Gastrointestinal: soft, non-tender, bowel sounds Extremities: other (No significant edema) Labs Result Diagram: 12/04/18 0508 12/04/18 0508 Results 24hrs Laboratory Tests Test 12/04/18 05:08 12/04/18 11:00 White Blood Count 9.8 Red Blood Count 3.89 L Hemoglobin 11.7 L Hematocrit 36.8 L Mean Corpuscular Volume 94.6 Mean Corpuscular Hemoglobin 30.1 Mean Corpuscular Hemoglobin Concent 31.8 L Red Cell Distribution Width 15.9 H Platelet Count 263 Mean Platelet Volume 11.8 H Immature Granulocytes % 2.200 H Neutrophils % 82.5 H Lymphocytes % 10.9 L Monocytes % 1.9 Eosinophils % 2.3 Basophils % 0.2 Nucleated Red Blood Cells % 0.0 Immature Granulocytes # 0.210 H Neutrophils # 8.1 H Lymphocytes # 1.1 Monocytes # 0.2 L Eosinophils # 0.2 Basophils # 0.0 Nucleated Red Blood Cells # 0.0 Sodium Level 148 H Potassium Level 3.6 Chloride Level 116 H Carbon Dioxide Level 28 Anion Gap 4 L Blood Urea Nitrogen 18 Creatinine 0.96 Est Glomerular Filtrat Rate mL/min Glucose Level 194 Calcium Level 8.6 Phosphorus Level 1.0 L Magnesium Level 2.2 Iron Level 21 L Total Iron Binding Capacity 202 L Percent Iron Saturation 10 L Total Bilirubin 0.4 Direct Bilirubin 0.00 Indirect Bilirubin 0.4 Aspartate Amino Transf (AST/SGOT) 150 #H Alanine Aminotransferase (ALT/SGPT) 85 H Alkaline Phosphatase 182 H Total Protein 5.5 L Albumin 2.3 L Vancomycin Level Trough 5.4 L Medications Medications Current Medications Acetaminophen (Tylenol Tab) 650 mg Q4H PRN PO MILD PAIN LEVEL 1-3 Last administered on 12/03/18at 17:07; Admin Dose 650 MG; Start 12/01/18 at 16:30 Bisacodyl (Dulcolax) 10 mg Q24H PRN PO CONSTIPATION; Start 12/01/18 at 16:30 Magnesium Hydroxide (Milk Of Mag) 30 ml Q24H PO Last administered on 12/03/18at 17:07; Admin Dose 30 ML; Start 12/01/18 at 16:30 IV Flush (NS 3 ml) 3 ml PER PROTOCOL IV ; Start 12/01/18 at 16:30 Ondansetron HCl (Zofran Inj) 4 mg Q6H PRN IV NAUSEA/VOMITING; Start 12/01/18 at 16:30 Docusate Sodium (Colace) 100 mg Q12H PRN PO .CONSTIPATION; Start 12/01/18 at 16:30 Magnesium Hydroxide (Milk Of Mag) 30 ml DAILY PRN PO .CONSTIPATION; Start 12/01/18 at 16:30 Enoxaparin Sodium (Lovenox) 30 mg DAILY SC Last administered on 12/04/18at 09:23; Admin Dose 30 MG; Start 12/02/18 at 09:00 Albuterol (Proventil 0.083% (Neb)) 2.5 mg Q2H RESP THERAPY PRN HHN SHORTNESS OF BREATH; Start 12/01/18 at 18:00 Piperacillin Sod/ Tazobactam Sod 100 ml @ 200 mls/hr Q8 IVPB Last administered on 12/04/18at 14:43; Admin Dose 200 MLS/HR; Start 12/01/18 at 22:00 Vancomycin HCl (Vanco Iv Per Pharmacy) VANCOMYCIN PER PHARMACY PER PROTOCOL XX ; Start 12/01/18 at 21:30 Valproate Sodium 125 mg/Sodium Chloride 51.25 ml @ 55 mls/hr QHS IVPB Last administered on 12/03/18at 21:05; Admin Dose 55 MLS/HR; Start 12/02/18 at 21:00 Multivitamins (Multivitamin) 30 ml DAILY GTB Last administered on 12/04/18at 09:14; Admin Dose 30 ML; Start 12/03/18 at 12:00 Ferrous Sulfate (Feosol Liquid Cup) 300 mg DAILY NGT Last administered on 12/04/18at 09:15; Admin Dose 300 MG; Start 12/03/18 at 12:00 Amiodarone HCl (Cordarone) 200 mg BID NGT Last administered on 12/04/18at 09:16; Admin Dose 200 MG; Start 12/03/18 at 21:00 Dextrose 1,000 ml @ 70 mls/hr [id number] IV Last administered on 12/04/18at 12:09; Admin Dose 70 MLS/HR; Start 12/03/18 at 20:30 Labetalol HCl (Labetalol) 10 mg Q4H PRN IV sbp >160; Start 12/04/18 at 09:30 Ferric Sodium Gluconate Complex 125 mg/Sodium Chloride 110 ml @ 110 mls/hr DAILY@1300 IVPB Last administered on 12/04/18at 15:46; Admin Dose 110 MLS/HR; Start 12/04/18 at 15:00; Stop 12/08/18 at 13:59 Vancomycin HCl 250 ml @ 125 mls/hr Q12H IVPB ; Start 12/05/18 at 00:00 Miscellaneous Information (*Rx Drug Level Order Reminder*) VANCO TR AT 2300 2300 ONCE XX ; Start 12/05/18 at 23:00; Stop 12/05/18 at 23:01 Manoj Biggs DO Dec 04, 2018 17:32
[2018-12-04] MEDS: VALPROATE INJ 125 MG in SOD CHLORIDE 0.9% 50 ML IVPB SCH (20:22)
--- NOTE | 2018-12-04 20:34 | PN ---
DATE: 12/04/2018 SUBJECTIVE: The patient is more awake today. Looks comfortable, no fevers overnight. WBC 9.8, platelets 263, neutrophils 82.5, BUN 18, creatinine 0.96. MICROBIOLOGY: Blood and urine culture grew E. coli on admission. Repeat blood cultures negative. B lood culture on admission also grew coagulase-negative staph. DIAGNOSTICS: Chest x-ray this morning revealed worsening bilateral perihilar and lower lobe infiltra charly and worsening bilateral pleural effusion, left greater than right. ANTIMICROBIALS: 1. Vancomycin. 2. Zosyn. INDWELLINGS: The patient has Trent catheter, NG tube and right subclavian triple-lumen catheter. PHYSICAL EXAMINATION: GENERAL: This is a chronically ill-appearing, well-developed elderly man who is awake, in no distres s. HEENT: Head atraumatic, normocephalic. NECK: Supple. CHEST: Rise symmetrical. Breath sounds diminished to bases with scattered rhonchi. HEART: S1, S2. ABDOMEN: Soft, bowel sounds present. ASSESSMENT: 1. Severe sepsis, resolving. 2. Healthcare-associated pneumonia, possibly aspiration. 3. Urinary tract infection with bacteremia, cultures growing Escherichia coli. 4. Resolving encephalopathy. 5. Status post rapid atrial fibrillation. PLAN: The patient is clinically improving with worsening chest x-ray. We will keep him on broad spe ctrum antibiotics. Continue anti-aspiration precautions. Follow recommendations of consultants. Dictated By: ALYSON FONTANEZ [employer] INST[employer]ER for ELSY PIERRE MD NI/NTS Conf#: [id number] DID#: [id number] CC: CATHERINE RENAE MD;*EndCC*
[2018-12-05] VITALS (24 sets, daily range): BP systolic 114–152; BP diastolic 64–95; PULSE 62–93; RESP 15–24
[2018-12-05] MEDS: VANCOMYCIN 1 GM 250 ML IVPB SCH ×2 (00:19→11:41)
[2018-12-05] MEDS: DEXTROSE 5% 1,000 ML IV SCH ×2 (01:06→08:21)
[2018-12-05] MEDS: PIPER-TAZO 3.375 GM IV (PMX) 100 ML IVPB SCH ×3 (06:01→21:26)
[2018-12-05] MEDS: ENOXAPARIN 30 MG/0.3 ML SYG SC SCH (08:23)
[2018-12-05] MEDS: AMIODARONE 200 MG TAB NGT SCH ×2 (09:00→21:00)
[2018-12-05] MEDS: MULTIVITAMINS 30 ML CUP GTB SCH (09:00)
[2018-12-05] MEDS: FERROUS SULFATE 60 MG/ML 5ML CUP NGT SCH (09:00)
--- NOTE | 2018-12-05 09:24 | CONS ---
Assessment/Plan Assessment/Plan Assessment/Plan (Daily) Assessment and recommendations; 1. Patient admitted with severe sepsis from E. coli bacteremia as well as UTI with bilateral pneumonia with marked overall clinical improvement. Leukocytosis is improving. 2. Acute encephalopathy with interval improvement. 3. History of seizure disorder. 4. Improving hypernatremia and acute renal injury. 5. Mild anemia. Continue current supportive care. Consider stopping vancomycin. Consider transfer to medical floor. Consultation Date/Type/Reason Admit Date/Time Dec 01, 2018 at 17:12 Initial Consult Date 12/02/18 Type of Consult Pulmonary/critical care Patient is a 88-year-old male who was transferred over from long-term to the hospital because of altered mental status. Patient has been diagnosed with sepsis due to UTI as well as cardiac arrhythmia. Was a time I saw him in ICU, patient is on nasal cannula but is noncommunicative. History is been obtained from medical records. Patient did not appear to be in any distress. Past medical history; 1. Apparent dementia. 2. Anemia 3. History of seizure disorder. Medications; reviewed. Allergies; none. Social history, family history, occupational history is are not available. Review of system; unable to be obtained. General exam; elderly male, noncommunicative. Currently no distress. Requesting Provider: QASIM HWANG Date/Time of Note DATE: 12/05/18 TIME: 09:22 24 HR Interval Summary Free Text/Dictation Patient's condition has markedly improved over the last 12 hours. Patient is now completely awake and alert and follows simple commands. Has remained hemodynamically stable. Also exhibiting stable pulmonary status on room air. General exam; elderly male, awake, currently no distress. Exam/Review of Systems Exam Vitals Vital Signs Date Temp Pulse Resp B/P (MAP) Pulse Ox O2 O2 Flow FiO2 Time Delivery Rate 12/05/18 98.5 73 15 120/83 99 Nasal 08:00 (95) Cannula 12/05/18 4.0 06:08 12/01/18 50 21:50 Intake and Output 12/04/18 12/04/18 12/05/18 1515:00 23:00 07:00 IntakeIntake Total 1300 ml 2670 ml 751.25 ml OutputOutput Total 950 ml 1320 ml BalanceBalance 1300 ml 1720 ml -568.75 ml Exam H EENT exam; supple neck, no JVD. No lymphadenopathy. Midline trachea. No thyromegaly. Patient is edentulous. No neck masses. Pupils are small bilaterally. Chest exam; diminished but clear breath sounds. S1-S2 audible, no murmurs. Regular rhythm. Abdomen exam; soft, nontender. No organomegaly. Nondistended. Bowel sounds audible. Extremity exam; no peripheral edema clubbing. [employer] exam; patient awake and follows simple commands and moves all 4 extremities. Results Result Diagram: 12/05/18 0440 12/05/18 0440 Results 24hrs Laboratory Tests Test 12/04/18 11:00 12/05/18 04:40 Vancomycin Level Trough 5.4 L White Blood Count 8.6 Red Blood Count 3.39 L Hemoglobin 10.2 L Hematocrit 31.9 L Mean Corpuscular Volume 94.1 Mean Corpuscular Hemoglobin 30.1 Mean Corpuscular Hemoglobin Concent 32.0 Red Cell Distribution Width 15.7 H Platelet Count 255 Mean Platelet Volume 12.3 H Immature Granulocytes % 1.600 H Neutrophils % 78.0 H Lymphocytes % 14.2 L Monocytes % 2.7 Eosinophils % 3.3 Basophils % 0.2 Nucleated Red Blood Cells % 0.0 Immature Granulocytes # 0.140 H Neutrophils # 6.7 Lymphocytes # 1.2 Monocytes # 0.2 L Eosinophils # 0.3 Basophils # 0.0 Nucleated Red Blood Cells # 0.0 Sodium Level 144 Potassium Level 3.3 L Chloride Level 113 H Carbon Dioxide Level 27 Anion Gap 4 L Blood Urea Nitrogen 13 Creatinine 0.95 Est Glomerular Filtrat Rate mL/min Glucose Level 105 # Calcium Level 7.9 L Phosphorus Level 1.6 L Magnesium Level 1.8 Medications Medication Current Medications Acetaminophen (Tylenol Tab) 650 mg Q4H PRN PO MILD PAIN LEVEL 1-3 Last administered on 12/03/18at 17:07; Admin Dose 650 MG; Start 12/01/18 at 16:30 Bisacodyl (Dulcolax) 10 mg Q24H PRN PO CONSTIPATION; Start 12/01/18 at 16:30 Magnesium Hydroxide (Milk Of Mag) 30 ml Q24H PO Last administered on 12/04/18at 16:30; Admin Dose 30 ML; Start 12/01/18 at 16:30 IV Flush (NS 3 ml) 3 ml PER PROTOCOL IV ; Start 12/01/18 at 16:30 Ondansetron HCl (Zofran Inj) 4 mg Q6H PRN IV NAUSEA/VOMITING; Start 12/01/18 at 16:30 Docusate Sodium (Colace) 100 mg Q12H PRN PO .CONSTIPATION; Start 12/01/18 at 16:30 Magnesium Hydroxide (Milk Of Mag) 30 ml DAILY PRN PO .CONSTIPATION; Start 12/01/18 at 16:30 Enoxaparin Sodium (Lovenox) 30 mg DAILY SC Last administered on 12/05/18at 08:23; Admin Dose 30 MG; Start 12/02/18 at 09:00 Albuterol (Proventil 0.083% (Neb)) 2.5 mg Q2H RESP THERAPY PRN HHN SHORTNESS OF BREATH; Start 12/01/18 at 18:00 Piperacillin Sod/ Tazobactam Sod 100 ml @ 200 mls/hr Q8 IVPB Last administered on 12/05/18at 06:01; Admin Dose 200 MLS/HR; Start 12/01/18 at 22:00 Vancomycin HCl (Vanco Iv Per Pharmacy) VANCOMYCIN PER PHARMACY PER PROTOCOL XX ; Start 12/01/18 at 21:30 Valproate Sodium 125 mg/Sodium Chloride 51.25 ml @ 55 mls/hr QHS IVPB Last administered on 12/04/18at 20:22; Admin Dose 55 MLS/HR; Start 12/02/18 at 21:00 Multivitamins (Multivitamin) 30 ml DAILY GTB Last administered on 12/04/18at 09:14; Admin Dose 30 ML; Start 12/03/18 at 12:00 Ferrous Sulfate (Feosol Liquid Cup) 300 mg DAILY NGT Last administered on 12/04/18at 09:15; Admin Dose 300 MG; Start 12/03/18 at 12:00 Amiodarone HCl (Cordarone) 200 mg BID NGT Last administered on 12/04/18 09:16; Admin Dose 200 MG; Start 12/03/18 at 21:00 Dextrose 1,000 ml @ 70 mls/hr [id number] IV Last administered on 12/05/18 08:21; Admin Dose 70 MLS/HR; Start 12/03/18 at 20:30 Labetalol HCl (Labetalol) 10 mg Q4H PRN IV sbp >160; Start 12/04/18 at 09:30 Ferric Sodium Gluconate Complex 125 mg/Sodium Chloride 110 ml @ 110 mls/hr DAILY@1300 IVPB Last administered on 12/04/18at 15:46; Admin Dose 110 MLS/HR; Start 12/04/18 at 15:00; Stop 12/08/18 at 13:59 Vancomycin HCl 250 ml @ 125 mls/hr Q12H IVPB Last administered on 12/05/18at 00:19; Admin Dose 125 MLS/HR; Start 12/05/18 at 00:00 Miscellaneous Information (*Rx Drug Level Order Reminder*) VANCO TR AT 2300 2300 ONCE XX ; Start 12/05/18 at 23:00; Stop 12/05/18 at 23:01 KENNEDY DIEHL Dec 05, 2018 09:24
[2018-12-05] MEDS ORDERED: MAGNESIUM SULFATE 2 GM/50 ML 50 ML IVPB ONE ×2 (10:00→17:00)
[2018-12-05] MEDS ORDERED: POTASSIUM PHOSPHATE 20 MEQ in SOD CHLORIDE 0.9% 250 ML IVPB ONE ×2 (10:00→11:00)
--- NOTE | 2018-12-05 10:21 | PN ---
Date/Time of Note Date/Time of Note DATE: 12/05/18 TIME: 10:19 Objective Vitals Vital Signs Date Temp Pulse Resp B/P (MAP) Pulse Ox O2 O2 Flow FiO2 Time Delivery Rate 12/05/18 98.5 73 15 120/83 99 Nasal 08:00 (95) Cannula 12/05/18 4.0 06:08 12/01/18 50 21:50 Intake and Output 12/04/18 12/04/18 12/05/18 1515:00 23:00 07:00 IntakeIntake Total 1300 ml 2670 ml 751.25 ml OutputOutput Total 950 ml 1320 ml BalanceBalance 1300 ml 1720 ml -568.75 ml Results Result Diagram: 12/05/180 12/05/18 0440 Medications Medications Current Medications Acetaminophen (Tylenol Tab) 650 mg Q4H PRN PO MILD PAIN LEVEL 1-3 Last administered on 12/03/18at 17:07; Admin Dose 650 MG; Start 12/01/18 at 16:30 Bisacodyl (Dulcolax) 10 mg Q24H PRN PO CONSTIPATION; Start 12/01/18 at 16:30 Magnesium Hydroxide (Milk Of Mag) 30 ml Q24H PO Last administered on 12/04/18at 16:30; Admin Dose 30 ML; Start 12/01/18 at 16:30 IV Flush (NS 3 ml) 3 ml PER PROTOCOL IV ; Start 12/01/18 at 16:30 Ondansetron HCl (Zofran Inj) 4 mg Q6H PRN IV NAUSEA/VOMITING; Start 12/01/18 at 16:30 Docusate Sodium (Colace) 100 mg Q12H PRN PO .CONSTIPATION; Start 12/01/18 at 16:30 Magnesium Hydroxide (Milk Of Mag) 30 ml DAILY PRN PO .CONSTIPATION; Start 12/01/18 at 16:30 Enoxaparin Sodium (Lovenox) 30 mg DAILY SC Last administered on 12/05/18at 08:23; Admin Dose 30 MG; Start 12/02/18 at 09:00 Albuterol (Proventil 0.083% (Neb)) 2.5 mg Q2H RESP THERAPY PRN HHN SHORTNESS OF BREATH; Start 12/01/18 at 18:00 Piperacillin Sod/ Tazobactam Sod 100 ml @ 200 mls/hr Q8 IVPB Last administered on 12/05/18at 06:01; Admin Dose 200 MLS/HR; Start 12/01/18 at 22:00 Vancomycin HCl (Vanco Iv Per Pharmacy) VANCOMYCIN PER PHARMACY PER PROTOCOL XX ; Start 12/01/18 at 21:30 Valproate Sodium 125 mg/Sodium Chloride 51.25 ml @ 55 mls/hr QHS IVPB Last administered on 12/04/18at 20:22; Admin Dose 55 MLS/HR; Start 12/02/18 at 21:00 Multivitamins (Multivitamin) 30 ml DAILY GTB Last administered on 12/04/18at 09:14; Admin Dose 30 ML; Start 12/03/18 at 12:00 Ferrous Sulfate (Feosol Liquid Cup) 300 mg DAILY NGT Last administered on 12/04/18at 09:15; Admin Dose 300 MG; Start 12/03/18 at 12:00 Amiodarone HCl (Cordarone) 200 mg BID NGT Last administered on 12/04/18at 09:16; Admin Dose 200 MG; Start 12/03/18 at 21:00 Dextrose 1,000 ml @ 70 mls/hr [id number] IV Last administered on 12/05/18at 08:21; Admin Dose 70 MLS/HR; Start 12/03/18 at 20:30 Labetalol HCl (Labetalol) 10 mg Q4H PRN IV sbp >160; Start 12/04/18 at 09:30 Ferric Sodium Gluconate Complex 125 mg/Sodium Chloride 110 ml @ 110 mls/hr DAILY@1300 IVPB Last administered on 12/04/18at 15:46; Admin Dose 110 MLS/HR; Start 12/04/18 at 15:00; Stop 12/08/18 at 13:59 Vancomycin HCl 250 ml @ 125 mls/hr Q12H IVPB Last administered on 12/05/18at 00:19; Admin Dose 125 MLS/HR; Start 12/05/18 at 00:00 Miscellaneous Information (*Rx Drug Level Order Reminder*) VANCO TR AT 2300 2300 ONCE XX ; Start 12/05/18 at 23:00; Stop 12/05/18 at 23:01 Magnesium Sulfate 50 ml @ 25 mls/hr ONCE ONCE IVPB ; Start 12/05/18 at 10:00; Stop 12/05/18 at 11:59 Potassium Phosphate 20 meq/ Sodium Chloride 254.5455 ml @ 63.636 m... ONCE ONCE IVPB ; Start 12/05/18 at 11:00; Stop 12/05/18 at 14:59 VTE Prophylaxis Risk score (from Ns)>0 risk: 9 SCD applied (from Ns): Yes Lines/Catheters IV Catheter Type: Trent in Place: No Assessment/Plan Hospital Course Subjective Patient improved mentally significantly, is able to converse and is likely back to near baseline Objective Physical exam General: Patient is laying in bed, on nasal cannula Mentation: Patient is alert and oriented x1 Head: Normocephalic atraumatic Eyes: EOMI, Neck: Supple, nontender, midline Respiratory: Coarse to auscultation bilaterally Cardiovascular: regular rate, no obvious murmurs Gastrointestinal: non-tender to palpation, bowel sounds heard. Neurological: Moves all extremities spontaneously to noxious stimuli Skin: No new skin lesions Assessment/Plan septic shock secondary to UTI/bacteremia/PNA -IV antibiotic, broad-spectrum, infectious disease on board -E. coli and coag negative staph on blood cultures -Now off pressors -Resolving Bacteremia -E. coli and coag negative staph -Continue antibiotics per infectious disease recommendations PNA -cont abx per ID recs Acute on chronic encephalopathy, resolving -Patient's baseline is alert and oriented x1 per nursing staff at the long-term -Patient likely was able to eat and ambulate according to halfway facility -Patient does not have a conservator according to social service manager and halfway facility, patient also has no family and interdisciplinary faculty at halfway facility was making decisions. -CT head only shows chronic infarct -Encephalopathy is likely due to bacteremia and UTI. Arrhythmia, likely afib-aflutter - seen on EKG - Cardiology consultation appreciated - ECHO noted -Continue medications per cardiology MORTEZA -Resolved -Continue volume status, monitor closely, Hypernatremia -Nephrology consulted -Fluids per nephrology elevated BNP -Patient's chest x-ray does show some pulmonary edema, will defer to cardiology for the recommendations -Pulmonology also on board -Cardiology recommend spot dosing of Lasix, will defer to their recommendations UTI - UA noted - urine culture noted - broad spectrum antibiotic started - ID on board Acute respiratory distress -Now off BiPAP -Pulmonology consulted, Hypertension -Restart home medications when able, use PRN for now dementia -Baseline per halfway facility was alert and oriented x1 Depression? - on depakote, will cont IV Diet - will order speech evaluation -Patient pulled out NG tube -Restart diet if safe from speech therapist perspective Code status - Full Code Disposition -Okay to downgrade -More than 40 minutes of critical care time was spent on this evaluation QASIM HWANG Dec 05, 2018 10:21
[2018-12-05] MEDS: SOD FERRIC GLUC COMPLX 125 MG in SOD CHLORIDE 0.9% 100 ML IVPB SCH (13:08)
[2018-12-05] MEDS ORDERED: SOD CHLORIDE 0.9% 100 ML ONE (13:36)
[2018-12-05] MEDS ORDERED: IOHEXOL 100 ML ONE (13:36)
--- NOTE | 2018-12-05 14:20 | CONS ---
Assessment/Plan Assessment/Plan Assessment/Plan (Daily) 1. acute hypernatremia, due to free water deficit 2. septic shock due to PNA/UTI/bacteremia 3 acute UTI 4.acute hyoxic respiratory failure s/p BIPAP now 5. Acute on chronic encephalopathy 6. H/o HTN, CAD, dementia, depression, HLD, and osteoarthritis 7. Anemia of CKD with Iron deficiency Plan: Na improved to 144, K 3.3- replaced for today, S/p IVF D5 W x 2 liter now change to D51/2 NS at 50 cc/hr IV ferrlecit 125 mg IV daily x 5 days for iron deficiency IV abx for sepsis, Renally dose all abx and monitor electorlytes will continue to follow up Consultation Date/Type/Reason Admit Date/Time Dec 01, 2018 at 17:12 Initial Consult Date 12/03/18 Type of Consult NEPHROLOGY Requesting Provider: QASIM HWANG Date/Time of Note DATE: 12/05/18 TIME: 14:20 Exam/Review of Systems Exam Vitals Vital Signs Date Temp Pulse Resp B/P (MAP) Pulse Ox O2 O2 Flow FiO2 Time Delivery Rate 12/05/18 98.2 71 22 117/79 68 Room Air 12:00 (92) 12/05/18 2.0 11:00 12/01/18 50 21:50 Intake and Output 12/04/18 12/04/18 12/05/18 1515:00 23:00 07:00 IntakeIntake Total 1300 ml 2670 ml 751.25 ml OutputOutput Total 950 ml 1320 ml BalanceBalance 1300 ml 1720 ml -568.75 ml Exam Constitutional: no acute distress Head: normocephalic Neck: supple, non-tender Respiratory: congested cough, diminished breath sounds Cardiovascular: regular rate and rhythm, nl pulses Gastrointestinal: soft Extremities: normal pulses Neurological: Non focal Results Result Diagram: 12/05/18 0440 12/05/18 0440 Results 24hrs Laboratory Tests Test 12/05/18 04:40 White Blood Count 8.6 Red Blood Count 3.39 L Hemoglobin 10.2 L Hematocrit 31.9 L Mean Corpuscular Volume 94.1 Mean Corpuscular Hemoglobin 30.1 Mean Corpuscular Hemoglobin Concent 32.0 Red Cell Distribution Width 15.7 H Platelet Count 255 Mean Platelet Volume 12.3 H Immature Granulocytes % 1.600 H Neutrophils % 78.0 H Lymphocytes % 14.2 L Monocytes % 2.7 Eosinophils % 3.3 Basophils % 0.2 Nucleated Red Blood Cells % 0.0 Immature Granulocytes # 0.140 H Neutrophils # 6.7 Lymphocytes # 1.2 Monocytes # 0.2 L Eosinophils # 0.3 Basophils # 0.0 Nucleated Red Blood Cells # 0.0 Sodium Level 144 Potassium Level 3.3 L Chloride Level 113 H Carbon Dioxide Level 27 Anion Gap 4 L Blood Urea Nitrogen 13 Creatinine 0.95 Est Glomerular Filtrat Rate mL/min Glucose Level 105 # Calcium Level 7.9 L Phosphorus Level 1.6 L Magnesium Level 1.8 Total Bilirubin 0.5 Direct Bilirubin 0.00 Indirect Bilirubin 0.5 Aspartate Amino Transf (AST/SGOT) 127 H Alanine Aminotransferase (ALT/SGPT) 80 H Alkaline Phosphatase 142 H Total Protein 5.6 L Albumin 2.3 L Medications Medication Current Medications Acetaminophen (Tylenol Tab) 650 mg Q4H PRN PO MILD PAIN LEVEL 1-3 Last administered on 12/03/18at 17:07; Admin Dose 650 MG; Start 12/01/18 at 16:30 Bisacodyl (Dulcolax) 10 mg Q24H PRN PO CONSTIPATION; Start 12/01/18 at 16:30 Magnesium Hydroxide (Milk Of Mag) 30 ml Q24H PO Last administered on 12/04/18at 16:30; Admin Dose 30 ML; Start 12/01/18 at 16:30 IV Flush (NS 3 ml) 3 ml PER PROTOCOL IV ; Start 12/01/18 at 16:30 Ondansetron HCl (Zofran Inj) 4 mg Q6H PRN IV NAUSEA/VOMITING; Start 12/01/18 at 16:30 Docusate Sodium (Colace) 100 mg Q12H PRN PO .CONSTIPATION; Start 12/01/18 at 16 :30 Magnesium Hydroxide (Milk Of Mag) 30 ml DAILY PRN PO .CONSTIPATION; Start 12/01/18 at 16:30 Enoxaparin Sodium (Lovenox) 30 mg DAILY SC Last administered on 12/05/18at 08:23; Admin Dose 30 MG; Start 12/02/18 at 09:00 Albuterol (Proventil 0.083% (Neb)) 2.5 mg Q2H RESP THERAPY PRN HHN SHORTNESS OF BREATH; Start 12/01/18 at 18:00 Piperacillin Sod/ Tazobactam Sod 100 ml @ 200 mls/hr Q8 IVPB Last administered on 12/05/18at 06:01; Admin Dose 200 MLS/HR; Start 12/01/18 at 22:00 Vancomycin HCl (Vanco Iv Per Pharmacy) VANCOMYCIN PER PHARMACY PER PROTOCOL XX ; Start 12/01/18 at 21:30 Valproate Sodium 125 mg/Sodium Chloride 51.25 ml @ 55 mls/hr QHS IVPB Last administered on 12/04/18at 20:22; Admin Dose 55 MLS/HR; Start 12/02/18 at 21:00 Multivitamins (Multivitamin) 30 ml DAILY GTB Last administered on 12/04/18at 09:14; Admin Dose 30 ML; Start 12/03/18 at 12:00 Ferrous Sulfate (Feosol Liquid Cup) 300 mg DAILY NGT Last administered on 12/04/18 09:15; Admin Dose 300 MG; Start 12/03/18 at 12:00 Amiodarone HCl (Cordarone) 200 mg BID NGT Last administered on 12/04/18at 09:16; Admin Dose 200 MG; Start 12/03/18 at 21:00 Dextrose 1,000 ml @ 70 mls/hr [id number] IV Last administered on 12/05/18at 08:21; Admin Dose 70 MLS/HR; Start 12/03/18 at 20:30 Labetalol HCl (Labetalol) 10 mg Q4H PRN IV sbp >160; Start 12/04/18 at 09:30 Ferric Sodium Gluconate Complex 125 mg/Sodium Chloride 110 ml @ 110 mls/hr DAILY@1300 IVPB Last administered on 12/05/18at 13:08; Admin Dose 110 MLS/HR; Start 12/04/18 at 15:00; Stop 12/08/18 at 13:59 Vancomycin HCl 250 ml @ 125 mls/hr Q12H IVPB Last administered on 12/05/18at 11:41; Admin Dose 125 MLS/HR; Start 12/05/18 at 00:00 Miscellaneous Information (*Rx Drug Level Order Reminder*) VANCO TR AT 2300 2300 ONCE XX ; Start 12/05/18 at 23:00; Stop 12/05/18 at 23:01 Potassium Phosphate 20 meq/ Sodium Chloride 254.5455 ml @ 63.636 m... ONCE ONCE IVPB Last administered on 12/05/18at 11:34; Admin Dose 63.636 MLS/HR; Start 12/05/18 at 11:00; Stop 12/05/18 at 14:59 SALAZAR MEDEL MD Dec 05, 2018 14:20
[2018-12-05] MEDS: MAGNESIUM HYDROXIDE 30ML CUP PO SCH (16:30)
--- NOTE | 2018-12-05 16:42 | CONS ---
Assessment/Plan Assessment/Plan Assessment/Plan (Daily) Shock secondary to urinary tract infection and pneumonia Bacteremia Encephalopathy Delirium dementia Atrial fibrillation Acute kidney injury now resolved Hypertension Full code The patient will continue to improve I see no reason at CODE STATUS need to be addressed at this time. In the event the patient decompensates he will need to be presented to bioethics committee to address his CODE STATUS. Blood care can be addressed at the [facility] facility since patient is debilitated possibly cognitively altered as his baseline mental status presents high risk of another catastrophic infection. Consultation Date/Type/Reason Admit Date/Time Dec 01, 2018 at 17:12 Date/Time of Note DATE: 12/05/18 TIME: 16:40 Hx of Present Illness Reviewed patient's medical records asked to see patient by Dr. Romero from a p alliative care standpoint. I reviewed medical records from [email or web address] work service. She is contacted public [email or web address] office and was told that patient's case was reviewed in 2016 was not handled due to no reason for conservatorship. Therefore at this time there is no next of kin or spokesperson for patient. Fortunately patient has improved from sepsis syndrome from urinary tract infection source. Patient is a full code area that he has been treated aggressively and he is improved now off pressors diagnosed with both her Percy tract infection and pneumonia on broad-spectrum IV antibiotic coverage. Apparently his mental status is improved and he appears to me to be delirious and other medical problems chronically include cardiac arrhythmias atrial fibrillation, acute kidney injury proving, fluid electrolyte abnormalities, elevated BNP and incomplete medical records it is unclear whether not patient's baseline medical status could have been mild to moderate dementia on top of delirium in his hospitalization. Incomplete database Past Medical History Medical History: coronary artery disease, high cholesterol, hypertension, other (dementia, osteoarthritis) Home Meds Reported Medications Ascorbic Acid (Vitamin C) 500 Mg Tab, 500 MG PO DAILY, TAB 12/01/18 Amlodipine Besylate* (Norvasc*) 2.5 Mg Tablet, 2.5 MG PO DAILY, TAB HOLD FOR SBP<110 HR<60 12/01/18 Multivit-Min/Iron Fum/Folic AC (Ohkpv-Qcszafa-Xetffooz Tablet) 1 Each Tablet, 1 EACH PO DAILY, TAB 12/01/18 Magnesium Hydroxide* (Milk Of Magnesia*) 400 Mg/5 Ml Oral.susp, 30 ML PO Q24H for CONSTIPATION, ML 12/01/18 Mag Hydrox/Al Hydrox/Simeth (Maalox Advanced Suspension) 355 Ml Oral.susp, 30 ML PO Q4H 12/01/18 Ferrous Sulfate* (Ferrous Sulfate*) 325 Mg Tabec, 325 MG PO DAILY, TAB 12/01/18 Bisacodyl* (Dulcolax*) 5 Mg Tablet.dr, 10 MG PO Q24H PRN for CONSTIPATION, TAB 12/01/18 Divalproex Sodium* (Depakote* Sprinkle) 125 Mg Cap.sprink, 125 MG PO QHS, #90 CAP 12/01/18 Atorvastatin Calcium* (Atorvastatin Calcium*) 20 Mg Tablet, 20 MG PO QHS, #30 TAB 12/01/18 Acetaminophen* (Acetaminophen*) 325 Mg Tablet, 650 MG PO Q4H PRN for MILD PAIN LEVEL 1-3, #30 TAB AND TEMP 100F OR ABOVE 12/01/18 Medications Current Medications Acetaminophen (Tylenol Tab) 650 mg Q4H PRN PO MILD PAIN LEVEL 1-3 Last administered on 12/03/18at 17:07; Admin Dose 650 MG; Start 12/01/18 at 16:30 Bisacodyl (Dulcolax) 10 mg Q24H PRN PO CONSTIPATION; Start 12/01/18 at 16:30 Magnesium Hydroxide (Milk Of Mag) 30 ml Q24H PO Last administered on 12/04/18at 16:30; Admin Dose 30 ML; Start 12/01/18 at 16:30 IV Flush (NS 3 ml) 3 ml PER PROTOCOL IV ; Start 12/01/18 at 16:30 Ondansetron HCl (Zofran Inj) 4 mg Q6H PRN IV NAUSEA/VOMITING; Start 12/01/18 at 16:30 Docusate Sodium (Colace) 100 mg Q12H PRN PO .CONSTIPATION; Start 12/01/18 at 16:30 Magnesium Hydroxide (Milk Of Mag) 30 ml DAILY PRN PO .CONSTIPATION; Start 12/01/18 at 16:30 Enoxaparin Sodium (Lovenox) 30 mg DAILY SC Last administered on 12/05/18at 08:23; Admin Dose 30 MG; Start 12/02/18 at 09:00 Albuterol (Proventil 0.083% (Neb)) 2.5 mg Q2H RESP THERAPY PRN HHN SHORTNESS OF BREATH; Start 12/01/18 at 18:00 Piperacillin Sod/ Tazobactam Sod 100 ml @ 200 mls/hr Q8 IVPB Last administered on 12/05/18at 14:56; Admin Dose 200 MLS/HR; Start 12/01/18 at 22:00 Vancomycin HCl (Vanco Iv Per Pharmacy) VANCOMYCIN PER PHARMACY PER PROTOCOL XX ; Start 12/01/18 at 21:30 Valproate Sodium 125 mg/Sodium Chloride 51.25 ml @ 55 mls/hr QHS IVPB Last administered on 12/04/18at 20:22; Admin Dose 55 MLS/HR; Start 12/02/18 at 21:00 Multivitamins (Multivitamin) 30 ml DAILY GTB Last administered on 12/04/18 09:14; Admin Dose 30 ML; Start 12/03/18 at 12:00 Ferrous Sulfate (Feosol Liquid Cup) 300 mg DAILY NGT Last administered on 12/04/18 09:15; Admin Dose 300 MG; Start 12/03/18 at 12:00 Amiodarone HCl (Cordarone) 200 mg BID NGT Last administered on 12/04/18at 09:16; Admin Dose 200 MG; Start 12/03/18 at 21:00 Dextrose 1,000 ml @ 70 mls/hr [id number] IV Last administered on 12/05/18at 08:21; Admin Dose 70 MLS/HR; Start 12/03/18 at 20:30 Labetalol HCl (Labetalol) 10 mg Q4H PRN IV sbp >160; Start 12/04/18 at 09:30 Ferric Sodium Gluconate Complex 125 mg/Sodium Chloride 110 ml @ 110 mls/hr DAILY@1300 IVPB Last administered on 12/05/18at 13:08; Admin Dose 110 MLS/HR; Start 12/04/18 at 15:00; Stop 12/08/18 at 13:59 Vancomycin HCl 250 ml @ 125 mls/hr Q12H IVPB Last administered on 12/05/18at 11:41; Admin Dose 125 MLS/HR; Start 12/05/18 at 00:00 Miscellaneous Information (*Rx Drug Level Order Reminder*) VANCO TR AT 2300 2300 ONCE XX ; Start 12/05/18 at 23:00; Stop 12/05/18 at 23:01 Allergies: Coded Allergies: No Known Allergy (Unverified , 12/01/18) Past Surgical History Past Surgical Hx: other (unknown) Social History Alcohol Use: none Smoking Status: Never smoker Drug Use: none, other Exam/Review of Systems Exam Vitals Vital Signs Date Temp Pulse Resp B/P (MAP) Pulse Ox O2 O2 Flow FiO2 Time Delivery Rate 12/05/18 98.0 81 24 152/89 94 Room Air 16:00 (110) 12/05/18 2.0 11:00 12/01/18 50 21:50 Intake and Output 12/04/18 12/04/18 12/05/18 1515:00 23:00 07:00 IntakeIntake Total 1300 ml 2670 ml 751.25 ml OutputOutput Total 950 ml 1320 ml BalanceBalance 1300 ml 1720 ml -568.75 ml Constitutional: alert, frail, other (No acute distress) Psych: confusion Head: normocephalic, atraumatic Eyes: nl conjunctiva, EOMI, nl lids, nl sclera, PERRL Neck: supple, non-tender Respiratory: clear to auscultation, normal air movement Cardiovascular: nl pulses, other (Irregularly irregular rhythm) Gastrointestinal: soft, nl liver, spleen, non-tender Extremities: normal pulses Neurological: [employer] SCI[employer] II-XII intact, confused, focal weakness Results Result Diagram: 12/05/180 12/05/18 0440 Results 24hrs Laboratory Tests Test 12/05/18 04:40 White Blood Count 8.6 Red Blood Count 3.39 L Hemoglobin 10.2 L Hematocrit 31.9 L Mean Corpuscular Volume 94.1 Mean Corpuscular Hemoglobin 30.1 Mean Corpuscular Hemoglobin Concent 32.0 Red Cell Distribution Width 15.7 H Platelet Count 255 Mean Platelet Volume 12.3 H Immature Granulocytes % 1.600 H Neutrophils % 78.0 H Lymphocytes % 14.2 L Monocytes % 2.7 Eosinophils % 3.3 Basophils % 0.2 Nucleated Red Blood Cells % 0.0 Immature Granulocytes # 0.140 H Neutrophils # 6.7 Lymphocytes # 1.2 Monocytes # 0.2 L Eosinophils # 0.3 Basophils # 0.0 Nucleated Red Blood Cells # 0.0 Sodium Level 144 Potassium Level 3.3 L Chloride Level 113 H Carbon Dioxide Level 27 Anion Gap 4 L Blood Urea Nitrogen 13 Creatinine 0.95 Est Glomerular Filtrat Rate mL/min Glucose Level 105 # Calcium Level 7.9 L Phosphorus Level 1.6 L Magnesium Level 1.8 Total Bilirubin 0.5 Direct Bilirubin 0.00 Indirect Bilirubin 0.5 Aspartate Amino Transf (AST/SGOT) 127 H Alanine Aminotransferase (ALT/SGPT) 80 H Alkaline Phosphatase 142 H Total Protein 5.6 L Albumin 2.3 L Medications Medication Current Medications Acetaminophen (Tylenol Tab) 650 mg Q4H PRN PO MILD PAIN LEVEL 1-3 Last administered on 12/03/18at 17:07; Admin Dose 650 MG; Start 12/01/18 at 16:30 Bisacodyl (Dulcolax) 10 mg Q24H PRN PO CONSTIPATION; Start 12/01/18 at 16:30 Magnesium Hydroxide (Milk Of Mag) 30 ml Q24H PO Last administered on 12/04/18at 16:30; Admin Dose 30 ML; Start 12/01/18 at 16:30 IV Flush (NS 3 ml) 3 ml PER PROTOCOL IV ; Start 12/01/18 at 16:30 Ondansetron HCl (Zofran Inj) 4 mg Q6H PRN IV NAUSEA/VOMITING; Start 12/01/18 at 16:30 Docusate Sodium (Colace) 100 mg Q12H PRN PO .CONSTIPATION; Start 12/01/18 at 16:30 Magnesium Hydroxide (Milk Of Mag) 30 ml DAILY PRN PO .CONSTIPATION; Start 12/01/18 at 16:30 Enoxaparin Sodium (Lovenox) 30 mg DAILY SC Last administered on 12/05/18at 08:23; Admin Dose 30 MG; Start 12/02/18 at 09:00 Albuterol (Proventil 0.083% (Neb)) 2.5 mg Q2H RESP THERAPY PRN HHN SHORTNESS OF BREATH; Start 12/01/18 at 18:00 Piperacillin Sod/ Tazobactam Sod 100 ml @ 200 mls/hr Q8 IVPB Last administered on 12/05/18at 14:56; Admin Dose 200 MLS/HR; Start 12/01/18 at 22:00 Vancomycin HCl (Vanco Iv Per Pharmacy) VANCOMYCIN PER PHARMACY PER PROTOCOL XX ; Start 12/01/18 at 21:30 Valproate Sodium 125 mg/Sodium Chloride 51.25 ml @ 55 mls/hr QHS IVPB Last administered on 12/04/18at 20:22; Admin Dose 55 MLS/HR; Start 12/02/18 at 21:00 Multivitamins (Multivitamin) 30 ml DAILY GTB Last administered on 12/04/18at 09:14; Admin Dose 30 ML; Start 12/03/18 at 12:00 Ferrous Sulfate (Feosol Liquid Cup) 300 mg DAILY NGT Last administered on 09:15; Admin Dose 300 MG; Start 12/03/18 at 12:00 Amiodarone HCl (Cordarone) 200 mg BID NGT Last administered on 12/04/18 09:16; Admin Dose 200 MG; Start 12/03/18 at 21:00 Dextrose 1,000 ml @ 70 mls/hr [id number] IV Last administered on 12/05/18 08:21; Admin Dose 70 MLS/HR; Start 12/03/18 at 20:30 Labetalol HCl (Labetalol) 10 mg Q4H PRN IV sbp >160; Start 12/04/18 at 09:30 Ferric Sodium Gluconate Complex 125 mg/Sodium Chloride 110 ml @ 110 mls/hr DAILY@1300 IVPB Last administered on 12/05/18at 13:08; Admin Dose 110 MLS/HR; Start 12/04/18 at 15:00; Stop 12/08/18 at 13:59 Vancomycin HCl 250 ml @ 125 mls/hr Q12H IVPB Last administered on 12/05/18at 11:41; Admin Dose 125 MLS/HR; Start 12/05/18 at 00:00 Miscellaneous Information (*Rx Drug Level Order Reminder*) GIUSEPPE BENEDICT AT 23 00 2300 ONCE XX ; Start 12/05/18 at 23:00; Stop 12/05/18 at 23:01 SARANYA ROSE Dec 05, 2018 16:42
--- NOTE | 2018-12-05 16:57 | CONS ---
Assessment/Plan Assessment/Plan Hospital Course (Demo Recall) Septic shock, off IV pressor Paroxysmal atrial flutter, currently sinus rhythm Encephalopathy Renal dysfunction Respiratory failure Currently SR Continue p.o. amiodarone If blood pressure tolerates, consider spot diuretics AB as per ID Will order magnesium and potassium supplementation Consultation Date/Type/Reason Admit Date/Time Dec 01, 2018 at 17:12 Initial Consult Date 12/02/18 Type of Consult Cardiology Requesting Provider: QASIM HWANG Date/Time of Note DATE: 12/05/18 TIME: 16:55 24 HR Interval Summary Free Text/Dictation Seen and examined Exam/Review of Systems Vital Signs Vitals Vital Signs Date Temp Pulse Resp B/P (MAP) Pulse Ox O2 O2 Flow FiO2 Time Delivery Rate 12/05/18 98.0 81 24 152/89 94 Room Air 16:00 (110) 12/05/18 2.0 11:00 12/01/18 50 21:50 Intake and Output 12/04/18 12/04/18 12/05/18 1515:00 23:00 07:00 IntakeIntake Total 1300 ml 2670 ml 751.25 ml OutputOutput Total 950 ml 1320 ml BalanceBalance 1300 ml 1720 ml -568.75 ml Exam Exam Awake, no apparent distress Head: normocephalic Respiratory: other (Coarse breath sounds bilaterally, no wheezing) Cardiovascular: regular rate and rhythm (S1-S2 heard) Gastrointestinal: soft, non-tender, bowel sounds Extremities: other (No significant edema) Labs Result Diagram: 12/05/18 0440 12/05/18 0440 Results 24hrs Laboratory Tests Test 12/05/18 04:40 White Blood Count 8.6 Red Blood Count 3.39 L Hemoglobin 10.2 L Hematocrit 31.9 L Mean Corpuscular Volume 94.1 Mean Corpuscular Hemoglobin 30.1 Mean Corpuscular Hemoglobin Concent 32.0 Red Cell Distribution Width 15.7 H Platelet Count 255 Mean Platelet Volume 12.3 H Immature Granulocytes % 1.600 H Neutrophils % 78.0 H Lymphocytes % 14.2 L Monocytes % 2.7 Eosinophils % 3.3 Basophils % 0.2 Nucleated Red Blood Cells % 0.0 Immature Granulocytes # 0.140 H Neutrophils # 6.7 Lymphocytes # 1.2 Monocytes # 0.2 L Eosinophils # 0.3 Basophils # 0.0 Nucleated Red Blood Cells # 0.0 Sodium Level 144 Potassium Level 3.3 L Chloride Level 113 H Carbon Dioxide Level 27 Anion Gap 4 L Blood Urea Nitrogen 13 Creatinine 0.95 Est Glomerular Filtrat Rate mL/min Glucose Level 105 # Calcium Level 7.9 L Phosphorus Level 1.6 L Magnesium Level 1.8 Total Bilirubin 0.5 Direct Bilirubin 0.00 Indirect Bilirubin 0.5 Aspartate Amino Transf (AST/SGOT) 127 H Alanine Aminotransferase (ALT/SGPT) 80 H Alkaline Phosphatase 142 H Total Protein 5.6 L Albumin 2.3 L Medications Medications Current Medications Acetaminophen (Tylenol Tab) 650 mg Q4H PRN PO MILD PAIN LEVEL 1-3 Last administered on 12/03/18at 17:07; Admin Dose 650 MG; Start 12/01/18 at 16:30 Bisacodyl (Dulcolax) 10 mg Q24H PRN PO CONSTIPATION; Start 12/01/18 at 16:30 Magnesium Hydroxide (Milk Of Mag) 30 ml Q24H PO Last administered on 12/04/18at 16:30; Admin Dose 30 ML; Start 12/01/18 at 16:30 IV Flush (NS 3 ml) 3 ml PER PROTOCOL IV ; Start 12/01/18 at 16:30 Ondansetron HCl (Zofran Inj) 4 mg Q6H PRN IV NAUSEA/VOMITING; Start 12/01/18 at 16:30 Docusate Sodium (Colace) 100 mg Q12H PRN PO .CONSTIPATION; Start 12/01/18 at 16:30 Magnesium Hydroxide (Milk Of Mag) 30 ml DAILY PRN PO .CONSTIPATION; Start 12/01/18 at 16:30 Enoxaparin Sodium (Lovenox) 30 mg DAILY SC Last administered on 12/05/18at 08:23; Admin Dose 30 MG; Start 12/02/18 at 09:00 Albuterol (Proventil 0.083% (Neb)) 2.5 mg Q2H RESP THERAPY PRN HHN SHORTNESS OF BREATH; Start 12/01/18 at 18:00 Piperacillin Sod/ Tazobactam Sod 100 ml @ 200 mls/hr Q8 IVPB Last administered on 12/05/18at 14:56; Admin Dose 200 MLS/HR; Start 12/01/18 at 22:00 Vancomycin HCl (Vanco Iv Per Pharmacy) VANCOMYCIN PER PHARMACY PER PROTOCOL XX ; Start 12/01/18 at 21:30 Valproate Sodium 125 mg/Sodium Chloride 51.25 ml @ 55 mls/hr QHS IVPB Last administered on 12/04/18at 20:22; Admin Dose 55 MLS/HR; Start 12/02/18 at 21:00 Multivitamins (Multivitamin) 30 ml DAILY GTB Last administered on 12/04/18at 09:14; Admin Dose 30 ML; Start 12/03/18 at 12:00 Ferrous Sulfate (Feosol Liquid Cup) 300 mg DAILY NGT Last administered on 12/04/18 09:15; Admin Dose 300 MG; Start 12/03/18 at 12:00 Amiodarone HCl (Cordarone) 200 mg BID NGT Last administered on 12/04/18 09:16; Admin Dose 200 MG; Start 12/03/18 at 21:00 Dextrose 1,000 ml @ 70 mls/hr [id number] IV Last administered on 12/05/18 08:21; Admin Dose 70 MLS/HR; Start 12/03/18 at 20:30 Labetalol HCl (Labetalol) 10 mg Q4H PRN IV sbp >160; Start 12/04/18 at 09:30 Ferric Sodium Gluconate Complex 125 mg/Sodium Chloride 110 ml @ 110 mls/hr CODY LY@1300 IVPB Last administered on 12/05/18at 13:08; Admin Dose 110 MLS/HR; Start 12/04/18 at 15:00; Stop 12/08/18 at 13:59 Vancomycin HCl 250 ml @ 125 mls/hr Q12H IVPB Last administered on 12/05/18at 11:41; Admin Dose 125 MLS/HR; Start 12/05/18 at 00:00 Miscellaneous Information (*Rx Drug Level Order Reminder*) VANCO TR AT 2300 2300 ONCE XX ; Start 12/05/18 at 23:00; Stop 12/05/18 at 23:01 Dextrose/Sodium Chloride 1,000 ml @ 50 mls/hr Q20H IV ; Start 12/05/18 at 17:00 Manoj Biggs DO Dec 05, 2018 16:57
[2018-12-05] MEDS: DEXTROSE 5%-0.45% NACL 1,000 ML IV SCH (17:23)
[2018-12-05] MEDS: POTASSIUM CHLORIDE 50 ML IVPB SCH ×3 (17:25→21:26)
--- NOTE | 2018-12-05 19:28 | CONS ---
Assessment/Plan Assessment/Plan Assessment/Plan (Daily) AP Septic shock, off IV pressor Paroxysmal atrial flutter, currently sinus rhythm Encephalopathy Renal dysfunction Abdominal aortic aneurysm 7 cm no signs of leak or rupture or dissection at this time the patient is not a candidate to undergo abdominal aortic aneurysm repair because of multiple medical problems including sepsis with monitor the patient when patient's clinical condition improved will need cardiology evaluation prior to undergoing endovascular repair of abdominal aortic aneurysm Consultation Date/Type/Reason Admit Date/Time Dec 01, 2018 at 17:12 Date of Consultation: Dec 05, 2018 Type of Consult Aortic aneurysm Reason for Consultation Vascular surgery Date/Time of Note DATE: 12/05/18 TIME: 19:24 Hx of Present Illness This 88-year-old male admitted from the halfway home facility secondary to altered mental status patient has respiratory distress hypotension tachycardia part of his work-up included an ultrasound which showed a abdominal aortic aneurysm 7 cm. Patient subsequently had a CT angiogram which showed a 7 cm infrarenal abdominal aortic aneurysm with thrombus but no rupture or leak or dissection she is currently being treated for respiratory failure and septic shock Respiratory: no complaints Cardiovascular: no complaints Gastrointestinal: no complaints Genitourinary: no complaints Musculoskeletal: no complaints Skin: no complaints Neurologic: no complaints Endocrine: no complaints Lymphatic: no complaints Past Medical History Medical History: coronary artery disease, high cholesterol, hypertension, other (dementia, osteoarthritis) Home Meds Reported Medications Ascorbic Acid (Vitamin C) 500 Mg Tab, 500 MG PO DAILY, TAB 12/01/18 Amlodipine Besylate* (Norvasc*) 2.5 Mg Tablet, 2.5 MG PO DAILY, TAB HOLD FOR SBP<110 HR<60 12/01/18 Multivit-Min/Iron Fum/Folic AC (Bivpq-Ygicqde-Zvzunbfv Tablet) 1 Each Tablet, 1 EACH PO DAILY, TAB 12/01/18 Magnesium Hydroxide* (Milk Of Magnesia*) 400 Mg/5 Ml Oral.susp, 30 ML PO Q24H for CONSTIPATION, ML 12/01/18 Mag Hydrox/Al Hydrox/Simeth (Maalox Advanced Suspension) 355 Ml Oral.susp, 30 ML PO Q4H 12/01/18 Ferrous Sulfate* (Ferrous Sulfate*) 325 Mg Tabec, 325 MG PO DAILY, TAB 12/01/18 Bisacodyl* (Dulcolax*) 5 Mg Tablet.dr, 10 MG PO Q24H PRN for CONSTIPATION, TAB 12/01/18 Divalproex Sodium* (Depakote* Sprinkle) 125 Mg Cap.sprink, 125 MG PO QHS, #90 CAP 12/01/18 Atorvastatin Calcium* (Atorvastatin Calcium*) 20 Mg Tablet, 20 MG PO QHS, #30 TAB 12/01/18 Acetaminophen* (Acetaminophen*) 325 Mg Tablet, 650 MG PO Q4H PRN for MILD PAIN LEVEL 1-3, #30 TAB AND TEMP 100F OR ABOVE 12/01/18 Medications Current Medications Acetaminophen (Tylenol Tab) 650 mg Q4H PRN PO MILD PAIN LEVEL 1-3 Last administered on 12/03/18at 17:07; Admin Dose 650 MG; Start 12/01/18 at 16:30 Bisacodyl (Dulcolax) 10 mg Q24H PRN PO CONSTIPATION; Start 12/01/18 at 16:30 Magnesium Hydroxide (Milk Of Mag) 30 ml Q24H PO Last administered on 12/04/18at 16:30; Admin Dose 30 ML; Start 12/01/18 at 16:30 IV Flush (NS 3 ml) 3 ml PER PROTOCOL IV ; Start 12/01/18 at 16:30 Ondansetron HCl (Zofran Inj) 4 mg Q6H PRN IV NAUSEA/VOMITING; Start 12/01/18 at 16:30 Docusate Sodium (Colace) 100 mg Q12H PRN PO .CONSTIPATION; Start 12/01/18 at 16:30 Magnesium Hydroxide (Milk Of Mag) 30 ml DAILY PRN PO .CONSTIPATION; Start 12/01/18 at 16:30 Enoxaparin Sodium (Lovenox) 30 mg DAILY SC Last administered on 12/05/18at 08:23; Admin Dose 30 MG; Start 12/02/18 at 09:00 Albuterol (Proventil 0.083% (Neb)) 2.5 mg Q2H RESP THERAPY PRN HHN SHORTNESS OF BREATH; Start 12/01/18 at 18:00 Piperacillin Sod/ Tazobactam Sod 100 ml @ 200 mls/hr Q8 IVPB Last administered on 12/05/18at 14:56; Admin Dose 200 MLS/HR; Start 12/01/18 at 22:00 Vancomycin HCl (Vanco Iv Per Pharmacy) VANCOMYCIN PER PHARMACY PER PROTOCOL XX ; Start 12/01/18 at 21:30 Valproate Sodium 125 mg/Sodium Chloride 51.25 ml @ 55 mls/hr QHS IVPB Last administered on 12/04/18at 20:22; Admin Dose 55 MLS/HR; Start 12/02/18 at 21:00 Multivitamins (Multivitamin) 30 ml DAILY GTB Last administered on 12/04/18at 09:14; Admin Dose 30 ML; Start 12/03/18 at 12:00 Ferrous Sulfate (Feosol Liquid Cup) 300 mg DAILY NGT Last administered on 12/04/18at 09:15; Admin Dose 300 MG; Start 12/03/18 at 12:00 Amiodarone HCl (Cordarone) 200 mg BID NGT Last administered on 12/04/18 09:16; Admin Dose 200 MG; Start 12/03/18 at 21:00 Dextrose 1,000 ml @ 70 mls/hr [id number] IV Last administered on 12/05/18at 08:21; Admin Dose 70 MLS/HR; Start 12/03/18 at 20:30 Labetalol HCl (Labetalol) 10 mg Q4H PRN IV sbp >160; Start 12/04/18 at 09:30 Ferric Sodium Gluconate Complex 125 mg/Sodium Chloride 110 ml @ 110 mls/hr DAILY@1300 IVPB Last administered on 12/05/18at 13:08; Admin Dose 110 MLS/HR; Start 12/04/18 at 15:00; Stop 12/08/18 at 13:59 Vancomycin HCl 250 ml @ 125 mls/hr Q12H IVPB Last administered on 12/05/18at 11:41; Admin Dose 125 MLS/HR; Start 12/05/18 at 00:00 Miscellaneous Information (*Rx Drug Level Order Reminder*) VANCO TR AT 2300 2300 ONCE XX ; Start 12/05/18 at 23:00; Stop 12/05/18 at 23:01 Dextrose/Sodium Chloride 1,000 ml @ 50 mls/hr Q20H IV Last administered on 12/05/18at 17:23; Admin Dose 50 MLS/HR; Start 12/05/18 at 17:00 Potassium Chloride 50 ml @ 25 mls/hr Q2H IVPB Last administered on 12/05/18at 17:25; Admin Dose 25 MLS/HR; Start 12/05/18 at 17:00; Stop 12/05/18 at 20:59 Allergies: Coded Allergies: No Known Allergy (Unverified , 12/01/18) Past Surgical History Past Surgical Hx: other (unknown) Social History Alcohol Use: none Smoking Status: Never smoker Drug Use: none, other Exam/Review of Systems Exam Vitals Vital Signs Date Temp Pulse Resp B/P (MAP) Pulse Ox O2 O2 Flow FiO2 Time Delivery Rate 12/05/18 71 22 129/77 99 Room Air 18:00 (94) 12/05/18 98.0 16:00 12/05/18 2.0 11:00 12/01/18 50 21:50 Intake and Output 12/04/18 12/04/18 12/05/18 1414:59 22:59 06:59 IntakeIntake Total 2100 ml 2670 ml 350 ml OutputOutput Total 950 ml 1200 ml BalanceBalance 2100 ml 1720 ml -850 ml Eyes: nl conjunctiva, EOMI, nl lids, nl sclera, PERRL ENMT: nl external ears & nose, nl lips & teeth, nl nasal mucosa & septum Neck: supple, non-tender Respiratory: clear to auscultation, normal air movement Cardiovascular: regular rate and rhythm, nl pulses Gastrointestinal: soft, nl liver, spleen, non-tender Extremities: normal pulses Neurological: SLOPE RUNNER II-XII intact, nl mental status, nl speech, nl strength Results Result Diagram: 12/05/18 0440 12/05/18 0440 Results 24hrs Laboratory Tests Test 12/05/18 04:40 White Blood Count 8.6 Red Blood Count 3.39 L Hemoglobin 10.2 L Hematocrit 31.9 L Mean Corpuscular Volume 94.1 Mean Corpuscular Hemoglobin 30.1 Mean Corpuscular Hemoglobin Concent 32.0 Red Cell Distribution Width 15.7 H Platelet Count 255 Mean Platelet Volume 12.3 H Immature Granulocytes % 1.600 H Neutrophils % 78.0 H Lymphocytes % 14.2 L Monocytes % 2.7 Eosinophils % 3.3 Basophils % 0.2 Nucleated Red Blood Cells % 0.0 Immature Granulocytes # 0.140 H Neutrophils # 6.7 Lymphocytes # 1.2 Monocytes # 0.2 L Eosinophils # 0.3 Basophils # 0.0 Nucleated Red Blood Cells # 0.0 Sodium Level 144 Potassium Level 3.3 L Chloride Level 113 H Carbon Dioxide Level 27 Anion Gap 4 L Blood Urea Nitrogen 13 Creatinine 0.95 Est Glomerular Filtrat Rate mL/min Glucose Level 105 # Calcium Level 7.9 L Phosphorus Level 1.6 L Magnesium Level 1.8 Total Bilirubin 0.5 Direct Bilirubin 0.00 Indirect Bilirubin 0.5 Aspartate Amino Transf (AST/SGOT) 127 H Alanine Aminotransferase (ALT/SGPT) 80 H Alkaline Phosphatase 142 H Total Protein 5.6 L Albumin 2.3 L Medications Medication Current Medications Acetaminophen (Tylenol Tab) 650 mg Q4H PRN PO MILD PAIN LEVEL 1-3 Last administered on 12/03/18at 17:07; Admin Dose 650 MG; Start 12/01/18 at 16:30 Bisacodyl (Dulcolax) 10 mg Q24H PRN PO CONSTIPATION; Start 12/01/18 at 16:30 Magnesium Hydroxide (Milk Of Mag) 30 ml Q24H PO Last administered on 12/04/18at 16:30; Admin Dose 30 ML; Start 12/01/18 at 16:30 IV Flush (NS 3 ml) 3 ml PER PROTOCOL IV ; Start 12/01/18 at 16:30 Ondansetron HCl (Zofran Inj) 4 mg Q6H PRN IV NAUSEA/VOMITING; Start 12/01/18 at 16:30 Docusate Sodium (Colace) 100 mg Q12H PRN PO .CONSTIPATION; Start 12/01/18 at 16:30 Magnesium Hydroxide (Milk Of Mag) 30 ml DAILY PRN PO .CONSTIPATION; Start 12/01/18 at 16:30 Enoxaparin Sodium (Lovenox) 30 mg DAILY SC Last administered on 12/05/18at 08:23; Admin Dose 30 MG; Start 12/02/18 at 09:00 Albuterol (Proventil 0.083% (Neb)) 2.5 mg Q2H RESP THERAPY PRN HHN SHORTNESS OF BREATH; Start 12/01/18 at 18:00 Piperacillin Sod/ Tazobactam Sod 100 ml @ 200 mls/hr Q8 IVPB Last administered on 12/05/18at 14:56; Admin Dose 200 MLS/HR; Start 12/01/18 at 22:00 Vancomycin HCl (Vanco Iv Per Pharmacy) VANCOMYCIN PER PHARMACY PER PROTOCOL XX ; Start 12/01/18 at 21:30 Valproate Sodium 125 mg/Sodium Chloride 51.25 ml @ 55 mls/hr QHS IVPB Last administered on 12/04/18at 20:22; Admin Dose 55 MLS/HR; Start 12/02/18 at 21:00 Multivitamins (Multivitamin) 30 ml DAILY GTB Last administered on 12/04/18 09:14; Admin Dose 30 ML; Start 12/03/18 at 12:00 Ferrous Sulfate (Feosol Liquid Cup) 300 mg DAILY NGT Last administered on 12/04/18 09:15; Admin Dose 300 MG; Start 12/03/18 at 12:00 Amiodarone HCl (Cordarone) 200 mg BID NGT Last administered on 12/04/18 09:16; Admin Dose 200 MG; Start 12/03/18 at 21:00 Dextrose 1,000 ml @ 70 mls/hr [id number] IV Last administered on 12/05/18 08:21; Admin Dose 70 MLS/HR; Start 12/03/18 at 20:30 Labetalol HCl (Labetalol) 10 mg Q4H PRN IV sbp >160; Start 12/04/18 at 09:30 Ferric Sodium Gluconate Complex 125 mg/Sodium Chloride 110 ml @ 110 mls/hr DAILY@1300 IVPB Last administered on 12/05/18at 13:08; Admin Dose 110 MLS/HR; Start 12/04/18 at 15:00; Stop 12/08/18 at 13:59 Vancomycin HCl 250 ml @ 125 mls/hr Q12H IVPB Last administered on 12/05/18at 11:41; Admin Dose 125 MLS/HR; Start 12/05/18 at 00:00 Miscellaneous Information (*Rx Drug Level Order Reminder*) VANCO TR AT 2300 2300 ONCE XX ; Start 12/05/18 at 23:00; Stop 12/05/18 at 23:01 Dextrose/Sodium Chloride 1,000 ml @ 50 mls/hr Q20H IV Last administered on 12/05/18at 17:23; Admin Dose 50 MLS/HR; Start 12/05/18 at 17:00 Potassium Chloride 50 ml @ 25 mls/hr Q2H IVPB Last administered on 12/05/18at 17:25; Admin Dose 25 MLS/HR; Start 12/05/18 at 17:00; Stop 12/05/18 at 20:59 DAVID CERDA MD Dec 05, 2018 19:28
[2018-12-05] MEDS: VALPROATE INJ 125 MG in SOD CHLORIDE 0.9% 50 ML IVPB SCH (20:23)
[2018-12-05] MEDS ORDERED: POTASSIUM CHLORIDE 50 ML IVPB ONE (21:30)
[2018-12-06] VITALS (20 sets, daily range): BP systolic 105–151; BP diastolic 61–108; PULSE 57–80; RESP 16–27
[2018-12-06] MEDS: VANCOMYCIN 1 GM 250 ML IVPB SCH ×2 (00:12→11:58)
[2018-12-06] MEDS: PIPER-TAZO 3.375 GM IV (PMX) 100 ML IVPB SCH ×3 (05:33→21:46)
--- NOTE | 2018-12-06 06:59 | PN ---
DATE: 12/05/2018 SUBJECTIVE: The patient looks comfortable on room air. No fevers overnight. WBC today 8.6, neutrophils 78, BUN 13, creatinine 0.95. MICROBIOLOGY: Blood and urine culture grew E. coli. Blood culture also grew coagulase-negative stap h on admission. Repeat blood cultures negative. DIAGNOSTICS: Chest x-ray yesterday revealed worsening bilateral perihilar and lower lobe infiltrates and worsening pleural effusions. Liver ultrasound this morning revealed marked greatly distended ou twards and measuring up to 7 cm in diameter with mural thrombus and right pleural effusion. ANTIMICROBIALS: The patient is on: 1. IV vancomycin. 2. Zosyn. INDWELLINGS: Trent and right chest triple lumen catheter. PHYSICAL EXAMINATION: GENERAL: Chronically ill-appearing, elderly man who is in no distress. HEENT: Head atraumatic, normocephalic. Sclerae anicteric. Buccal mucosa dry. NECK: Supple. CHEST: Rise symmetrical. Breath sounds diminished to bases. HEART: S1, S2. ABDOMEN: Soft, bowel tones hypoactive. EXTREMITIES: Without cyanosis. ASSESSMENT: 1. Status post septic shock. 2. Healthcare-associated pneumonia. 3. Escherichia coli urinary tract infection with bacteremia. 4. Coagulase-negative staph bacteremia consistent with contaminant. 5. Status post rapid atrial fibrillation. 6. Resolving encephalopathy. 7. Incidentally found aortic distention with possible mural thrombus. PLAN: The patient is clinically stable. Continue present care, antibiotics. Await for vascular monserrat hans evaluation and CT angiogram. Continue aspiration precautions. Dictated By: ALYSON FONTANEZ [employer] SERVIC[employer] for ELSY PIERRE MD NI/NTS Conf#: [id number] DID#: [id number] CC: CATHERINE RENAE MD;*EndCC*
--- NOTE | 2018-12-06 08:05 | CONS ---
Assessment/Plan Assessment/Plan Assessment/Plan (Daily) 1. acute hypernatremia, due to free water deficit 2. septic shock due to PNA/UTI/bacteremia 3 acute UTI 4.acute hyoxic respiratory failure s/p BIPAP now 5. Acute on chronic encephalopathy 6. H/o HTN, CAD, dementia, depression, HLD, and osteoarthritis 7. Anemia of CKD with Iron deficiency Plan: K 3.1- BUN/Cr normal, other electrolytes stable - continue IVF D51/2 NS at 50 c c/hr, KCl 20MEQ IV x 1 dose for hypokalemia IV ferrlecit 125 mg IV daily x 5 days for iron deficiency IV abx zosyn and vancomycin for sepsis, Renally dose all abx and monitor electorlytes will continue to follow up Consultation Date/Type/Reason Admit Date/Time Dec 01, 2018 at 17:12 Initial Consult Date 12/03/18 Type of Consult NEPHROLOGY Requesting Provider: QASIM HWANG Date/Time of Note DATE: 12/06/18 TIME: 08:05 Exam/Review of Systems Exam Vitals Vital Signs Date Temp Pulse Resp B/P (MAP) Pulse Ox O2 O2 Flow FiO2 Time Delivery Rate 12/06/18 58 26 125/73 89 Room Air 06:00 (90) 12/06/18 98.2 04:00 12/05/18 2.0 11:00 Intake and Output 12/05/18 12/05/18 12/06/18 1515:00 23:00 07:00 IntakeIntake Total 1042 ml 439 ml 600 ml OutputOutput Total 1025 ml 400 ml 950 ml BalanceBalance 17 ml 39 ml -350 ml Exam Constitutional: no acute distress Head: normocephalic Neck: supple, non-tender Respiratory: congested cough, diminished breath sounds Cardiovascular: regular rate and rhythm, nl pulses Gastrointestinal: soft Extremities: normal pulses Neurological: Non focal Results Result Diagram: 12/06/18 0330 12/06/18 0330 Results 24hrs Laboratory Tests Test 12/05/18 23:16 12/06/18 03:30 Vancomycin Level Trough 12.1 White Blood Count 9.0 Red Blood Count 3.34 L Hemoglobin 9.9 L Hematocrit 30.8 L Mean Corpuscular Volume 92.2 Mean Corpuscular Hemoglobin 29.6 Mean Corpuscular Hemoglobin Concent 32.1 Red Cell Distribution Width 14.9 H Platelet Count 288 Mean Platelet Volume 12.1 H Immature Granulocytes % 1.900 H Neutrophils % 77.0 Segmented Neutrophils % (Manual) 87 H Lymphocytes % 13.5 L Lymphocytes % (Manual) 7 L Monocytes % 2.6 Monocytes % (Manual) 2 Eosinophils % 4.6 Eosinophils % (Manual) 3 Basophils % 0.4 Promyelocytes % (Manual) 1 H Nucleated Red Blood Cells % 0.0 Immature Granulocytes # 0.170 H Neutrophils # 6.9 Lymphocytes (Manual) 0.6 L Lymphocytes # 1.2 Monocytes # 0.2 L Monocytes # (Manual) 0.1 L Eosinophils # 0.4 Basophils # 0.0 Promyelocytes # 0.0 Nucleated Red Blood Cells # 0.0 Platelet Estimate NORMAL Giant Platelets 17 H Hypochromasia 1+ Poikilocytosis 1+ Sodium Level 140 Potassium Level 3.3 L Chloride Level 111 H Carbon Dioxide Level 24 Anion Gap 5 Blood Urea Nitrogen 12 Creatinine 0.95 Est Glomerular Filtrat Rate mL/min Glucose Level 90 Calcium Level 7.6 L Magnesium Level 2.4 Total Bilirubin 0.6 Direct Bilirubin 0.00 Indirect Bilirubin 0.6 Aspartate Amino Transf (AST/SGOT) 95 H Alanine Aminotransferase (ALT/SGPT) 78 H Alkaline Phosphatase 140 H Total Protein 5.8 L Albumin 2.4 L Globulin 3.40 H Albumin/Globulin Ratio 0.70 Medications Medication Current Medications Acetaminophen (Tylenol Tab) 650 mg Q4H PRN PO MILD PAIN LEVEL 1-3 Last administered on 12/03/18at 17:07; Admin Dose 650 MG; Start 12/01/18 at 16:30 Bisacodyl (Dulcolax) 10 mg Q24H PRN PO CONSTIPATION; Start 12/01/18 at 16:30 Magnesium Hydroxide (Milk Of Mag) 30 ml Q24H PO Last administered on 12/04/18at 16:30; Admin Dose 30 ML; Start 12/01/18 at 16:30 IV Flush (NS 3 ml) 3 ml PER PROTOCOL IV ; Start 12/01/18 at 16:30 Ondansetron HCl (Zofran Inj) 4 mg Q6H PRN IV NAUSEA/VOMITING; Start 12/01/18 at 16:30 Docusate Sodium (Colace) 100 mg Q12H PRN PO .CONSTIPATION; Start 12/01/18 at 1 6:30 Magnesium Hydroxide (Milk Of Mag) 30 ml DAILY PRN PO .CONSTIPATION; Start 12/01/18 at 16:30 Enoxaparin Sodium (Lovenox) 30 mg DAILY SC Last administered on 12/05/18 08:23; Admin Dose 30 MG; Start 12/02/18 at 09:00 Albuterol (Proventil 0.083% (Neb)) 2.5 mg Q2H RESP THERAPY PRN HHN SHORTNESS OF BREATH; Start 12/01/18 at 18:00 Piperacillin Sod/ Tazobactam Sod 100 ml @ 200 mls/hr Q8 IVPB Last administered on 12/06/18 05:33; Admin Dose 200 MLS/HR; Start 12/01/18 at 22:00 Vancomycin HCl (Vanco Iv Per Pharmacy) VANCOMYCIN PER PHARMACY PER PROTOCOL XX ; Start 12/01/18 at 21:30 Valproate Sodium 125 mg/Sodium Chloride 51.25 ml @ 55 mls/hr QHS IVPB Last administered on 12/05/18 20:23; Admin Dose 55 MLS/HR; Start 12/02/18 at 21:00 Multivitamins (Multivitamin) 30 ml DAILY GTB Last administered on 12/04/18 09:14; Admin Dose 30 ML; Start 12/03/18 at 12:00 Ferrous Sulfate (Feosol Liquid Cup) 300 mg DAILY NGT Last administered on 12/04/18at 09:15; Admin Dose 300 MG; Start 12/03/18 at 12:00 Amiodarone HCl (Cordarone) 200 mg BID NGT Last administered on 12/04/18at 09:16; Admin Dose 200 MG; Start 12/03/18 at 21:00 Labetalol HCl (Labetalol) 10 mg Q4H PRN IV sbp >160; Start 12/04/18 at 09:30 Ferric Sodium Gluconate Complex 125 mg/Sodium Chloride 110 ml @ 110 mls/hr DAILY@1300 IVPB Last administered on 12/05/18at 13:08; Admin Dose 110 MLS/HR; Start 12/04/18 at 15:00; Stop 12/08/18 at 13:59 Vancomycin HCl 250 ml @ 125 mls/hr Q12H IVPB Last administered on 12/06/18at 00:12; Admin Dose 125 MLS/HR; Start 12/05/18 at 00:00 Dextrose/Sodium Chloride 1,000 ml @ 50 mls/hr Q20H IV Last administered on 12/05/18at 17:23; Admin Dose 50 MLS/HR; Start 12/05/18 at 17:00 SALAZAR MEDEL MD Dec 06, 2018 08:05
[2018-12-06] MEDS: AMIODARONE 200 MG TAB NGT SCH (09:00)
[2018-12-06] MEDS ORDERED: POTASSIUM CHLORIDE 100 ML IVPB ONE (09:00)
--- NOTE | 2018-12-06 09:24 | PN ---
Date/Time of Note Date/Time of Note DATE: 12/06/18 TIME: 09:21 Objective Vitals Vital Signs Date Temp Pulse Resp B/P (MAP) Pulse Ox O2 O2 Flow FiO2 Time Delivery Rate 12/06/18 58 26 125/73 89 Room Air 06:00 (90) 12/06/18 98.2 04:00 12/05/18 2.0 11:00 Intake and Output 12/05/18 12/05/18 12/06/18 1515:00 23:00 07:00 IntakeIntake Total 1042 ml 439 ml 600 ml OutputOutput Total 1025 ml 400 ml 950 ml BalanceBalance 17 ml 39 ml -350 ml Results Result Diagram: 12/06/18 0330 12/06/18 0330 Medications Medications Current Medications Acetaminophen (Tylenol Tab) 650 mg Q4H PRN PO MILD PAIN LEVEL 1-3 Last administered on 12/03/18at 17:07; Admin Dose 650 MG; Start 12/01/18 at 16:30 Bisacodyl (Dulcolax) 10 mg Q24H PRN PO CONSTIPATION; Start 12/01/18 at 16:30 Magnesium Hydroxide (Milk Of Mag) 30 ml Q24H PO Last administered on 12/04/18at 16:30; Admin Dose 30 ML; Start 12/01/18 at 16:30 IV Flush (NS 3 ml) 3 ml PER PROTOCOL IV ; Start 12/01/18 at 16:30 Ondansetron HCl (Zofran Inj) 4 mg Q6H PRN IV NAUSEA/VOMITING; Start 12/01/18 at 16:30 Docusate Sodium (Colace) 100 mg Q12H PRN PO .CONSTIPATION; Start 12/01/18 at 16:30 Magnesium Hydroxide (Milk Of Mag) 30 ml DAILY PRN PO .CONSTIPATION; Start 12/01/18 at 16:30 Enoxaparin Sodium (Lovenox) 30 mg DAILY SC Last administered on 12/05/18at 08: 23; Admin Dose 30 MG; Start 12/02/18 at 09:00 Albuterol (Proventil 0.083% (Neb)) 2.5 mg Q2H RESP THERAPY PRN HHN SHORTNESS OF BREATH; Start 12/01/18 at 18:00 Piperacillin Sod/ Tazobactam Sod 100 ml @ 200 mls/hr Q8 IVPB Last administered on 12/06/18 05:33; Admin Dose 200 MLS/HR; Start 12/01/18 at 22:00 Vancomycin HCl (Vanco Iv Per Pharmacy) VANCOMYCIN PER PHARMACY PER PROTOCOL XX ; Start 12/01/18 at 21:30 Valproate Sodium 125 mg/Sodium Chloride 51.25 ml @ 55 mls/hr QHS IVPB Last administered on 12/05/18 20:23; Admin Dose 55 MLS/HR; Start 12/02/18 at 21:00 Multivitamins (Multivitamin) 30 ml DAILY GTB Last administered on 12/04/18 09:14; Admin Dose 30 ML; Start 12/03/18 at 12:00 Ferrous Sulfate (Feosol Liquid Cup) 300 mg DAILY NGT Last administered on 12/04/18 09:15; Admin Dose 300 MG; Start 12/03/18 at 12:00 Amiodarone HCl (Cordarone) 200 mg BID NGT Last administered on 12/04/18 09:16; Admin Dose 200 MG; Start 12/03/18 at 21:00 Labetalol HCl (Labetalol) 10 mg Q4H PRN IV sbp >160; Start 12/04/18 at 09:30 Ferric Sodium Gluconate Complex 125 mg/Sodium Chloride 110 ml @ 110 mls/hr DAILY@1300 IVPB Last administered on 12/05/18at 13:08; Admin Dose 110 MLS/HR; Start 12/04/18 at 15:00; Stop 12/08/18 at 13:59 Vancomycin HCl 250 ml @ 125 mls/hr Q12H IVPB Last administered on 12/06/18at 00:12; Admin Dose 125 MLS/HR; Start 12/05/18 at 00:00 Dextrose/Sodium Chloride 1,000 ml @ 50 mls/hr Q20H IV Last administered on 12/05/18 17:23; Admin Dose 50 MLS/HR; Start 12/05/18 at 17:00 Potassium Chloride 100 ml @ 50 mls/hr ONCE ONCE IVPB ; Start 12/06/18 at 09:00; Stop 12/06/18 at 10:59 VTE Prophylaxis Risk score (from Nsg)>0 risk: 9 SCD applied (from Nsg): Yes Lines/Catheters IV Catheter Type: Trent in Place: No Assessment/Plan Hospital Course Subjective Patient improved mentally significantly, is able to converse and is likely back to near baseline Objective Physical exam General: Patient is laying in bed, on nasal cannula Mentation: Patient is alert and oriented x1 Head: Normocephalic atraumatic Eyes: EOMI, Neck: Supple, nontender, midline Respiratory: Coarse to auscultation bilaterally Cardiovascular: regular rate, no obvious murmurs Gastrointestinal: non-tender to palpation, bowel sounds heard. Neurological: Moves all extremities spontaneously to noxious stimuli Skin: No new skin lesions Assessment/Plan septic shock secondary to UTI/bacteremia/PNA -IV antibiotic, broad-spectrum, infectious disease on board -E. coli and coag negative staph on blood cultures -Now off pressors -Resolving Bacteremia -E. coli and coag negative staph -Continue antibiotics per infectious disease recommendations 7 cm abdominal aortic aneurysm -Cardiothoracic surgeon was consulted, patient not a candidate for surgery at this time due to multiple medical problems including sepsis -Patient will likely need further work-up after bacteremia and sepsis has cleared. PNA -cont abx per ID recs Acute on chronic encephalopathy, resolving -Patient's baseline is alert and oriented x[facility] -Patient likely was able to eat and ambulate according to shelter facility -Patient does not have a conservator according to social work manager and shelter facility, patient also has no family and interdisciplinary faculty at health system was making decisions. -CT head only shows chronic infarct -Encephalopathy is likely due to bacteremia and UTI. Arrhythmia, likely afib-aflutter - seen on EKG - Cardiology consultation appreciated - ECHO noted -Continue medications per cardiology MORTEZA -Resolved -Continue volume status, monitor closely, Hypernatremia -Nephrology consulted -Fluids per nephrology elevated BNP -Patient's chest x-ray does show some pulmonary edema, will defer to cardiology for the recommendations -Pulmonology also on board -Cardiology recommend spot dosing of Lasix, will defer to their recommendations UTI - UA noted - urine culture noted - broad spectrum antibiotic started - ID on board Acute respiratory distress -Now off BiPAP -Pulmonology consulted, Hypertension -Restart home medications when able, use PRN for now dementia -Baseline per shelter facility was alert and oriented x1 Depression? - on depakote, will cont IV Diet - will order speech evaluation -Patient pulled out NG tube -Restart diet if safe from speech therapist perspective Code status - Full Code Disposition -Okay to downgrade -[place] eval -More than 40 minutes of critical care time was spent on this evaluation QASIM HWANG Dec 06, 2018 09:24
[2018-12-06] MEDS: MULTIVITAMINS 30 ML CUP GTB SCH (09:25)
[2018-12-06] MEDS: FERROUS SULFATE 60 MG/ML 5ML CUP NGT SCH (09:26)
[2018-12-06] MEDS: ENOXAPARIN 30 MG/0.3 ML SYG SC SCH (09:28)
--- NOTE | 2018-12-06 11:54 | CONS ---
Consult Date/Type/Reason Admit Date/Time Dec 01, 2018 at 17:12 Initial Consult Date 12/05/18 Type of Consult Pulmonary Requesting Provider: QASIM HWANG Date/Time of Note DATE: 12/06/18 TIME: 11:52 Subjective Patient appears comfortable this morning no respiratory distress. Pending repeat swallow evaluation this morning. Off vasopressors and off BiPAP. Chest x-ray demonstrates left greater than right infiltrates Objective Vital Signs Date Temp Pulse Resp B/P (MAP) Pulse Ox O2 O2 Flow FiO2 Time Delivery Rate 12/06/18 80 22 142/73 96 Room Air 11:00 (96) 12/06/18 98.0 07:00 12/05/18 2.0 11:00 Intake and Output 12/05/18 12/05/18 12/06/18 1515:00 23:00 07:00 IntakeIntake Total 1042 ml 439 ml 650 ml OutputOutput Total 1025 ml 400 ml 1000 ml BalanceBalance 17 ml 39 ml -350 ml Exam GENERAL: VITAL SIGNS: per chart NECK: Supple. No JVD or lymphadenopathy. CARDIAC EXAM: S1, S2. No added sounds or murmurs. CHEST: clear bilaterally, No added sounds, rales or wheezes ABDOMEN: Soft, nontender. No guarding or rebound. EXTREMITIES: No cyanosis, clubbing or edema. NEUROLOGIC: Generalized weakness. No focal deficits. Elderly appearing gentleman in no acute distress appears comfortable at rest Results/Medications Result Diagram: 12/06/18 0330 12/06/18 0330 Results 24 hrs Laboratory Tests Test 12/05/18 23:16 12/06/18 03:30 Vancomycin Level Trough 12.1 White Blood Count 9.0 Red Blood Count 3.34 L Hemoglobin 9.9 L Hematocrit 30.8 L Mean Corpuscular Volume 92.2 Mean Corpuscular Hemoglobin 29.6 Mean Corpuscular Hemoglobin Concent 32.1 Red Cell Distribution Width 14.9 H Platelet Count 288 Mean Platelet Volume 12.1 H Immature Granulocytes % 1.900 H Neutrophils % 77.0 Segmented Neutrophils % (Manual) 87 H Lymphocytes % 13.5 L Lymphocytes % (Manual) 7 L Monocytes % 2.6 Monocytes % (Manual) 2 Eosinophils % 4.6 Eosinophils % (Manual) 3 Basophils % 0.4 Promyelocytes % (Manual) 1 H Nucleated Red Blood Cells % 0.0 Immature Granulocytes # 0.170 H Neutrophils # 6.9 Lymphocytes (Manual) 0.6 L Lymphocytes # 1.2 Monocytes # 0.2 L Monocytes # (Manual) 0.1 L Eosinophils # 0.4 Basophils # 0.0 Promyelocytes # 0.0 Nucleated Red Blood Cells # 0.0 Platelet Estimate NORMAL Giant Platelets 17 H Hypochromasia 1+ Poikilocytosis 1+ Sodium Level 140 Potassium Level 3.3 L Chloride Level 111 H Carbon Dioxide Level 24 Anion Gap 5 Blood Urea Nitrogen 12 Creatinine 0.95 Est Glomerular Filtrat Rate mL/min Glucose Level 90 Calcium Level 7.6 L Magnesium Level 2.4 Total Bilirubin 0.6 Direct Bilirubin 0.00 Indirect Bilirubin 0.6 Aspartate Amino Transf (AST/SGOT) 95 H Alanine Aminotransferase (ALT/SGPT) 78 H Alkaline Phosphatase 140 H Total Protein 5.8 L Albumin 2.4 L Globulin 3.40 H Albumin/Globulin Ratio 0.70 Medications Current Medications Acetaminophen (Tylenol Tab) 650 mg Q4H PRN PO MILD PAIN LEVEL 1-3 Last administered on 12/03/18at 17:07; Admin Dose 650 MG; Start 12/01/18 at 16:30 Bisacodyl (Dulcolax) 10 mg Q24H PRN PO CONSTIPATION; Start 12/01/18 at 16:30 Magnesium Hydroxide (Milk Of Mag) 30 ml Q24H PO Last administered on 12/04/18at 16:30; Admin Dose 30 ML; Start 12/01/18 at 16:30 IV Flush (NS 3 ml) 3 ml PER PROTOCOL IV ; Start 12/01/18 at 16:30 Ondansetron HCl (Zofran Inj) 4 mg Q6H PRN IV NAUSEA/VOMITING; Start 12/01/18 at 16:30 Docusate Sodium (Colace) 100 mg Q12H PRN PO .CONSTIPATION; Start 12/01/18 at 16:30 Magnesium Hydroxide (Milk Of Mag) 30 ml DAILY PRN PO .CONSTIPATION; Start 12/01/18 at 16:30 Enoxaparin Sodium (Lovenox) 30 mg DAILY SC Last administered on 12/06/18at 09:28; Admin Dose 30 MG; Start 12/02/18 at 09:00 Albuterol (Proventil 0.083% (Neb)) 2.5 mg Q2H RESP THERAPY PRN HHN SHORTNESS OF BREATH; Start 12/01/18 at 18:00 Piperacillin Sod/ Tazobactam Sod 100 ml @ 200 mls/hr Q8 IVPB Last administered on 12/06/18at 05:33; Admin Dose 200 MLS/HR; Start 12/01/18 at 22:00 Vancomycin HCl (Vanco Iv Per Pharmacy) VANCOMYCIN PER PHARMACY PER PROTOCOL XX ; Start 12/01/18 at 21:30 Valproate Sodium 125 mg/Sodium Chloride 51.25 ml @ 55 mls/hr QHS IVPB Last administered on 12/05/18 20:23; Admin Dose 55 MLS/HR; Start 12/02/18 at 21:00 Multivitamins (Multivitamin) 30 ml DAILY GTB Last administered on 12/06/18 09:25; Admin Dose 30 ML; Start 12/03/18 at 12:00 Ferrous Sulfate (Feosol Liquid Cup) 300 mg DAILY NGT Last administered on 12/06/18 09:26; Admin Dose 300 MG; Start 12/03/18 at 12:00 Amiodarone HCl (Cordarone) 200 mg BID NGT Last administered on 12/04/18 09:16; Admin Dose 200 MG; Start 12/03/18 at 21:00 Labetalol HCl (Labetalol) 10 mg Q4H PRN IV sbp >160; Start 12/04/18 at 09:30 Ferric Sodium Gluconate Complex 125 mg/Sodium Chloride 110 ml @ 110 mls/hr DAILY@1300 IVPB Last administered on 12/05/18at 13:08; Admin Dose 110 MLS/HR; Start 12/04/18 at 15:00; Stop 12/08/18 at 13:59 Vancomycin HCl 250 ml @ 125 mls/hr Q12H IVPB Last administered on 12/06/18 00:12; Admin Dose 125 MLS/HR; Start 12/05/18 at 00:00 Dextrose/Sodium Chloride 1,000 ml @ 50 mls/hr Q20H IV Last administered on 12/05/18 17:23; Admin Dose 50 MLS/HR; Start 12/05/18 at 17:00 Assessment/Plan Hospital Course (Demo Recall) Assessment 1. Status post E. coli severe sepsis secondary to UTI 2. Resolving pneumonia with hypoxemic respiratory failure 3. History of seizure disorder 4. Electrolyte imbalance Plan 1. Speech therapy evaluation for dysphagia 2. Continue antibiotics consider de-escalation 3. Aspiration precautions 4. DVT GI prophylaxis Critical care time 40 minutes Okay for transfer to telemetry from pulmonary standpoint Consider [place] evaluation FILIBERTO JAUREGUI MD, [facility] Dec 06, 2018 11:54
[2018-12-06] MEDS: DEXTROSE 5%-0.45% NACL 1,000 ML IV SCH (12:18)
[2018-12-06] MEDS: SOD FERRIC GLUC COMPLX 125 MG in SOD CHLORIDE 0.9% 100 ML IVPB SCH (12:20)
--- NOTE | 2018-12-06 13:39 | CONS ---
Assessment/Plan Assessment/Plan Hospital Course (Demo Recall) Septic shock, off IV pressor Paroxysmal atrial flutter, currently sinus rhythm Encephalopathy Renal dysfunction Respiratory failure Currently SR Decrease amiodarone to daily Diuretics as needed AB as per ID Consultation Date/Type/Reason Admit Date/Time Dec 01, 2018 at 17:12 Initial Consult Date 12/02/18 Type of Consult Cardiology Requesting Provider: QASIM HWANG Date/Time of Note DATE: 12/06/18 TIME: 13:38 24 HR Interval Summary Free Text/Dictation Seen and examined. No shortness of breath Exam/Review of Systems Vital Signs Vitals Vital Signs Date Temp Pulse Resp B/P (MAP) Pulse Ox O2 O2 Flow FiO2 Time Delivery Rate 12/06/18 77 12:00 12/06/18 98.0 19 148/88 95 Room Air 12:00 (108) 12/05/18 2.0 11:00 Intake and Output 12/05/18 12/05/18 12/06/18 1515:00 23:00 07:00 IntakeIntake Total 1042 ml 439 ml 650 ml OutputOutput Total 1025 ml 400 ml 1000 ml BalanceBalance 17 ml 39 ml -350 ml Exam Constitutional: alert (Following some commands, no apparent distress) Head: normocephalic Respiratory: other (Coarse breath sounds bilaterally, no wheezing) Cardiovascular: regular rate and rhythm (S1-S2 heard) Gastrointestinal: soft, non-tender, bowel sounds Extremities: other (No significant edema) Labs Result Diagram: 12/06/18 0330 12/06/18 0330 Results 24hrs Laboratory Tests Test 12/05/18 23:16 12/06/18 03:30 Vancomycin Level Trough 12.1 White Blood Count 9.0 Red Blood Count 3.34 L Hemoglobin 9.9 L Hematocrit 30.8 L Mean Corpuscular Volume 92.2 Mean Corpuscular Hemoglobin 29.6 Mean Corpuscular Hemoglobin Concent 32.1 Red Cell Distribution Width 14.9 H Platelet Count 288 Mean Platelet Volume 12.1 H Immature Granulocytes % 1.900 H Neutrophils % 77.0 Segmented Neutrophils % (Manual) 87 H Lymphocytes % 13.5 L Lymphocytes % (Manual) 7 L Monocytes % 2.6 Monocytes % (Manual) 2 Eosinophils % 4.6 Eosinophils % (Manual) 3 Basophils % 0.4 Promyelocytes % (Manual) 1 H Nucleated Red Blood Cells % 0.0 Immature Granulocytes # 0.170 H Neutrophils # 6.9 Lymphocytes (Manual) 0.6 L Lymphocytes # 1.2 Monocytes # 0.2 L Monocytes # (Manual) 0.1 L Eosinophils # 0.4 Basophils # 0.0 Promyelocytes # 0.0 Nucleated Red Blood Cells # 0.0 Platelet Estimate NORMAL Giant Platelets 17 H Hypochromasia 1+ Poikilocytosis 1+ Sodium Level 140 Potassium Level 3.3 L Chloride Level 111 H Carbon Dioxide Level 24 Anion Gap 5 Blood Urea Nitrogen 12 Creatinine 0.95 Est Glomerular Filtrat Rate mL/min Glucose Level 90 Calcium Level 7.6 L Magnesium Level 2.4 Total Bilirubin 0.6 Direct Bilirubin 0.00 Indirect Bilirubin 0.6 Aspartate Amino Transf (AST/SGOT) 95 H Alanine Aminotransferase (ALT/SGPT) 78 H Alkaline Phosphatase 140 H Total Protein 5.8 L Albumin 2.4 L Globulin 3.40 H Albumin/Globulin Ratio 0.70 Medications Medications Current Medications Acetaminophen (Tylenol Tab) 650 mg Q4H PRN PO MILD PAIN LEVEL 1-3 Last administered on 12/03/18at 17:07; Admin Dose 650 MG; Start 12/01/18 at 16:30 Bisacodyl (Dulcolax) 10 mg Q24H PRN PO CONSTIPATION; Start 12/01/18 at 16:30 Magnesium Hydroxide (Milk Of Mag) 30 ml Q24H PO Last administered on 12/04/18at 16:30; Admin Dose 30 ML; Start 12/01/18 at 16:30 IV Flush (NS 3 ml) 3 ml PER PROTOCOL IV ; Start 12/01/18 at 16:30 Ondansetron HCl (Zofran Inj) 4 mg Q6H PRN IV NAUSEA/VOMITING; Start 12/01/18 at 16:30 Docusate Sodium (Colace) 100 mg Q12H PRN PO .CONSTIPATION; Start 12/01/18 at 16:30 Magnesium Hydroxide (Milk Of Mag) 30 ml DAILY PRN PO .CONSTIPATION; Start 12/01/18 at 16:30 Enoxaparin Sodium (Lovenox) 30 mg DAILY SC Last administered on 12/06/18at 09:28; Admin Dose 30 MG; Start 12/02/18 at 09:00 Albuterol (Proventil 0.083% (Neb)) 2.5 mg Q2H RESP THERAPY PRN HHN SHORTNESS OF BREATH; Start 12/01/18 at 18:00 Piperacillin Sod/ Tazobactam Sod 100 ml @ 200 mls/hr Q8 IVPB Last administered on 12/06/18at 05:33; Admin Dose 200 MLS/HR; Start 12/01/18 at 22:00 Valproate Sodium 125 mg/Sodium Chloride 51.25 ml @ 55 mls/hr QHS IVPB Last administered on 12/05/18at 20:23; Admin Dose 55 MLS/HR; Start 12/02/18 at 21:00 Multivitamins (Multivitamin) 30 ml DAILY GTB Last administered on 12/06/18 09:25; Admin Dose 30 ML; Start 12/03/18 at 12:00 Ferrous Sulfate (Feosol Liquid Cup) 300 mg DAILY NGT Last administered on 12/06/18 09:26; Admin Dose 300 MG; Start 12/03/18 at 12:00 Amiodarone HCl (Cordarone) 200 mg BID NGT Last administered on 12/04/18at 09:16; Admin Dose 200 MG; Start 12/03/18 at 21:00 Labetalol HCl (Labetalol) 10 mg Q4H PRN IV sbp >160; Start 12/04/18 at 09:30 Ferric Sodium Gluconate Complex 125 mg/Sodium Chloride 110 ml @ 110 mls/hr DAILY@1300 IVPB Last administered on 12/06/18at 12:20; Admin Dose 110 MLS/HR; Start 12/04/18 at 15:00; Stop 12/08/18 at 13:59 Dextrose/Sodium Chloride 1,000 ml @ 50 mls/hr Q20H IV Last administered on 12/05/18 17:23; Admin Dose 50 MLS/HR; Start 12/05/18 at 17:00 Manoj Biggs DO Dec 06, 2018 13:39
--- NOTE | 2018-12-06 14:02 | PN ---
DATE: 12/06/2018 SUBJECTIVE: Patient is lying comfortably in bed, no acute events overnight. He is in no distress. WBC today 9, platelets 288. DIAGNOSTICS: The patient had a CT of the thorax yesterday that revealed large infrarenal abdominal a ortic aneurysm measuring 7.2 cm in maximal diameter, without evidence of rupture, moderate left and m ild right pleural effusions, nonspecific bilateral lower lobe pulmonary consolidations, greater on th e left. Please see full report in the chart. INDWELLINGS: The patient has Trent catheter and a right chest triple-lumen catheter. ANTIMICROBIALS: 1. Vancomycin. 2. Zosyn. PHYSICAL EXAMINATION: GENERAL: This is a chronically ill-appearing, elderly man who is in no distress. HEENT: Head atraumatic, normocephalic. NECK: Supple. CHEST: Rise symmetrical. Breath sounds diminished to bases. HEART: S1, S2. ABDOMEN: Soft, bowel tones present. EXTREMITIES: Without cyanosis. ASSESSMENT: 1. Status post septic shock. 2. Escherichia coli urinary tract infection with bacteremia. 3. Pneumonia, possibly aspiration. 4. Coagulase-negative staph bacteremia consistent with contaminant. 5. Abdominal aortic aneurysm, vascular surgery on case. 6. Resolving transaminitis. 7. Status post rapid atrial fibrillation. PLAN: The patient is clinically and hemodynamically stable. Per vascular surgery he is not a candid ate for surgical intervention yet and will require cardiac clearance if intervention sought to happen . We will discontinue vancomycin, continue Zosyn to complete treatment for bacteremia and pneumonia. Continue anti-aspiration precautions. Dictated By: ALYSON FONTANEZ NEURO OPHTHALMOLOGIST for ELSY PIERRE MD NI/NTS Conf#: [id number] DID#: [id number] CC: CATHERINE RENAE MD;*EndCC*
--- NOTE | 2018-12-06 14:25 | PN ---
Date/Time of Note Date/Time of Note DATE: 12/06/18 TIME: 14:23 Assessment/Plan Lines/Catheters IV Catheter Type (from Nrsg): Central Line Trent in Place (from Nrsg): Yes Assessment/Plan Assessment/Plan Septic shock, off IV pressor Paroxysmal atrial flutter, currently sinus rhythm Encephalopathy Renal dysfunction Abdominal aortic aneurysm 7 cm no signs of leak or rupture or dissection at this time the patient is not a candidate to undergo abdominal aortic aneurysm repair because of multiple medical problems including sepsis with monitor the patient when patient's clinical condition improved will need cardiology evaluation prior to undergoing endovascular repair of abdominal aortic aneurysm Subjective 24 Hr Interval Summary Constitutional: improved Pain Control: mild Exam/Review of Systems Vital Signs Vitals Vital Signs Date Temp Pulse Resp B/P (MAP) Pulse Ox O2 O2 Flow FiO2 Time Delivery Rate 12/06/18 77 12:00 12/06/18 98.0 19 148/88 95 Room Air 12:00 (108) 12/05/18 2.0 11:00 Intake and Output 12/05/18 12/05/18 12/06/18 1515:00 23:00 07:00 IntakeIntake Total 1042 ml 439 ml 650 ml OutputOutput Total 1025 ml 400 ml 1000 ml BalanceBalance 17 ml 39 ml -350 ml Exam Eyes: nl conjunctiva, EOMI, nl lids, nl sclera ENMT: nl external ears & nose, nl lips & teeth, nl nasal mucosa & septum, mucosa pink and moist Neck: supple, non-tender Respiratory: clear to auscultation, normal air movement Cardiovascular: regular rate and rhythm, nl pulses Gastrointestinal: soft, nl liver, spleen, non-tender Musculoskeletal: nl extremities to inspection, nl gait and stance Results Result Diagram: 12/06/18 0330 12/06/18 033 DAVID CERDA MD Dec 06, 2018 14:25
[2018-12-06] MEDS: MAGNESIUM HYDROXIDE 30ML CUP PO SCH (16:30)
--- NOTE | 2018-12-06 19:03 | PN ---
Date/Time of Note Date/Time of Note DATE: 12/06/18 TIME: 19:03 Assessment/Plan Lines/Catheters IV Catheter Type (from Nrsg): Central Line Trent in Place (from Nrsg): Yes Assessment/Plan Assessment/Plan Septic shock, off IV pressor Paroxysmal atrial flutter, currently sinus rhythm Encephalopathy Renal dysfunction Abdominal aortic aneurysm 7 cm no signs of leak or rupture or dissection at this time the patient is not a candidate to undergo abdominal aortic aneurysm repair because of multiple medical problems including sepsis with monitor the patient when patient's clinical condition improved will need cardiology evaluation prior to undergoing endovascular repair of abdominal aortic aneurysm Subjective 24 Hr Interval Summary Constitutional: improved Pain Control: mild Exam/Review of Systems Vital Signs Vitals Vital Signs Date Temp Pulse Resp B/P (MAP) Pulse Ox O2 O2 Flow FiO2 Time Delivery Rate 12/06/18 98.4 75 17 105/61 90 Nasal 16:19 (76) Cannula 12/05/18 2.0 11:00 Intake and Output 12/05/18 12/05/18 12/06/18 1414:59 22:59 06:59 IntakeIntake Total 1443.25 ml 439 ml 600 ml OutputOutput Total 945 ml 600 ml 950 ml BalanceBalance 498.25 ml -161 ml -350 ml Exam Eyes: nl conjunctiva, EOMI, nl lids, nl sclera ENMT: nl external ears & nose, nl lips & teeth, nl nasal mucosa & septum, mucosa pink and moist Neck: supple, non-tender Respiratory: clear to auscultation, normal air movement Cardiovascular: regular rate and rhythm, nl pulses Gastrointestinal: soft, nl liver, spleen, non-tender Musculoskeletal: nl extremities to inspection, nl gait and stance Results Result Diagram: 12/06/18 0330 12/06/18 033 DAVID CERDA MD Dec 06, 2018 19:03
[2018-12-06] MEDS: VALPROATE INJ 125 MG in SOD CHLORIDE 0.9% 50 ML IVPB SCH (20:17)
[2018-12-07] VITALS (11 sets, daily range): BP systolic 111–167; BP diastolic 58–90; PULSE 57–88; RESP 18–20
[2018-12-07] MEDS: PIPER-TAZO 3.375 GM IV (PMX) 100 ML IVPB SCH ×2 (05:44→13:43)
--- NOTE | 2018-12-07 08:47 | CONS ---
Assessment/Plan Assessment/Plan Assessment/Plan (Daily) 1. acute hypernatremia, due to free water deficit 2. septic shock due to PNA/UTI/bacteremia 3 acute UTI 4.acute hyoxic respiratory failure s/p BIPAP now 5. Acute on chronic encephalopathy 6. H/o HTN, CAD, dementia, depression, HLD, and osteoarthritis 7. Anemia of CKD with Iron deficiency Plan: K 3.3- BUN/Cr normal, other electrolytes stable - continue IVF D51/2 NS at 50 c c/hr, IV ferrlecit 125 mg IV daily x 5 days for iron deficiency IV abx ceftriaxone for 7 days, Renally dose all abx and monitor electorlytes will continue to follow up Consultation Date/Type/Reason Admit Date/Time Dec 01, 2018 at 17:12 Initial Consult Date 12/03/18 Type of Consult NEPHROLOGY Requesting Provider: QASIM HWANG Date/Time of Note DATE: 12/07/18 TIME: 08:47 Exam/Review of Systems Exam Vitals Vital Signs Date Temp Pulse Resp B/P (MAP) Pulse Ox O2 O2 Flow FiO2 Time Delivery Rate 12/07/18 98.1 88 18 139/69 97 08:12 (92) 12/07/18 Nasal 2.0 07:50 Cannula Intake and Output 12/06/18 12/06/18 12/07/18 1515:00 23:00 07:00 IntakeIntake Total 840 ml 151.25 ml 100 ml OutputOutput Total 440 ml BalanceBalance 400 ml 151.25 ml 100 ml Results Result Diagram: 12/07/18 0525 12/07/18 0525 Results 24hrs Laboratory Tests Test 12/07/18 05:25 White Blood Count 8.7 Red Blood Count 3.38 L Hemoglobin 10.3 L Hematocrit 31.0 L Mean Corpuscular Volume 91.7 Mean Corpuscular Hemoglobin 30.5 Mean Corpuscular Hemoglobin Concent 33.2 Red Cell Distribution Width 14.8 H Platelet Count 330 Mean Platelet Volume 11.5 H Immature Granulocytes % 2.800 H Neutrophils % 73.0 Lymphocytes % 15.7 Monocytes % 2.5 Eosinophils % 5.4 Basophils % 0.6 Nucleated Red Blood Cells % 0.0 Immature Granulocytes # 0.240 H Neutrophils # 6.4 Lymphocytes # 1.4 Monocytes # 0.2 L Eosinophils # 0.5 Basophils # 0.1 Nucleated Red Blood Cells # 0.0 Sodium Level 142 Potassium Level 3.3 L Chloride Level 113 H Carbon Dioxide Level 22 Anion Gap 7 Blood Urea Nitrogen 10 Creatinine 0.93 Est Glomerular Filtrat Rate mL/min Glucose Level 81 Calcium Level 7.9 L Magnesium Level 2.2 Total Bilirubin 0.5 Direct Bilirubin 0.00 Indirect Bilirubin 0.5 Aspartate Amino Transf (AST/SGOT) 71 H Alanine Aminotransferase (ALT/SGPT) 61 Alkaline Phosphatase 118 Total Protein 5.9 L Albumin 2.4 L Globulin 3.50 H Albumin/Globulin Ratio 0.68 Medications Medication Current Medications Acetaminophen (Tylenol Tab) 650 mg Q4H PRN PO MILD PAIN LEVEL 1-3 Last administered on 12/03/18at 17:07; Admin Dose 650 MG; Start 12/01/18 at 16:30 Bisacodyl (Dulcolax) 10 mg Q24H PRN PO CONSTIPATION; Start 12/01/18 at 16:30 Magnesium Hydroxide (Milk Of Mag) 30 ml Q24H PO Last administered on 12/04/18at 16:30; Admin Dose 30 ML; Start 12/01/18 at 16:30 IV Flush (NS 3 ml) 3 ml PER PROTOCOL IV ; Start 12/01/18 at 16:30 Ondansetron HCl (Zofran Inj) 4 mg Q6H PRN IV NAUSEA/VOMITING; Start 12/01/18 at 16:30 Docusate Sodium (Colace) 100 mg Q12H PRN PO .CONSTIPATION; Start 12/01/18 at 16:30 Magnesium Hydroxide (Milk Of Mag) 30 ml DAILY PRN PO .CONSTIPATION; Start 12/01/18 at 16:30 Enoxaparin Sodium (Lovenox) 30 mg DAILY SC Last administered on 12/06/18at 09:28; Admin Dose 30 MG; Start 12/02/18 at 09:00 Albuterol (Proventil 0.083% (Neb)) 2.5 mg Q2H RESP THERAPY PRN HHN SHORTNESS OF BREATH; Start 12/01/18 at 18:00 Piperacillin Sod/ Tazobactam Sod 100 ml @ 200 mls/hr Q8 IVPB Last administered on 12/07/18at 05:44; Admin Dose 200 MLS/HR; Start 12/01/18 at 22:00 Valproate Sodium 125 mg/Sodium Chloride 51.25 ml @ 55 mls/hr QHS IVPB Last administered on 12/06/18at 20:17; Admin Dose 55 MLS/HR; Start 12/02/18 at 21:00 Multivitamins (Multivitamin) 30 ml DAILY GTB Last administered on 12/06/18at 09:25; Admin Dose 30 ML; Start 12/03/18 at 12:00 Ferrous Sulfate (Feosol Liquid Cup) 300 mg DAILY NGT Last administered on 12/06/18at 09:26; Admin Dose 300 MG; Start 12/03/18 at 12:00 Labetalol HCl (Labetalol) 10 mg Q4H PRN IV sbp >160; Start 12/04/18 at 09:30 Ferric Sodium Gluconate Complex 125 mg/Sodium Chloride 110 ml @ 110 mls/hr DAILY@1300 IVPB Last administered on 12/06/18at 12:20; Admin Dose 110 MLS/HR; Start 12/04/18 at 15:00; Stop 12/08/18 at 13:59 Dextrose/Sodium Chloride 1,000 ml @ 50 mls/hr Q20H IV Last administered on 12/05/18at 17:23; Admin Dose 50 MLS/HR; Start 12/05/18 at 17:00 Amiodarone HCl (Cordarone) 200 mg DAILY NGT ; Start 12/07/18 at 09:00 SALAZAR MEDEL MD Dec 07, 2018 08:47
[2018-12-07] MEDS ORDERED: POTASSIUM CHLORIDE 20 MEQ POWDER FOR ORAL SOLN PO ONE (09:30)
--- NOTE | 2018-12-07 10:01 | PN ---
Date/Time of Note Date/Time of Note DATE: 12/07/18 TIME: 09:59 Objective Vitals Vital Signs Date Temp Pulse Resp B/P (MAP) Pulse Ox O2 O2 Flow FiO2 Time Delivery Rate 12/07/18 98.1 88 18 139/69 97 08:12 (92) 12/07/18 Nasal 2.0 07:50 Cannula Intake and Output 12/06/18 12/06/18 12/07/18 1515:00 23:00 07:00 IntakeIntake Total 840 ml 151.25 ml 100 ml OutputOutput Total 440 ml BalanceBalance 400 ml 151.25 ml 100 ml Results Result Diagram: 12/07/1852412/07/18524 Medications Medications Current Medications Acetaminophen (Tylenol Tab) 650 mg Q4H PRN PO MILD PAIN LEVEL 1-3 Last administered on 12/03/18at 17:07; Admin Dose 650 MG; Start 12/01/18 at 16:30 Bisacodyl (Dulcolax) 10 mg Q24H PRN PO CONSTIPATION; Start 12/01/18 at 16:30 Magnesium Hydroxide (Milk Of Mag) 30 ml Q24H PO Last administered on 12/04/18at 16:30; Admin Dose 30 ML; Start 12/01/18 at 16:30 IV Flush (NS 3 ml) 3 ml PER PROTOCOL IV ; Start 12/01/18 at 16:30 Ondansetron HCl (Zofran Inj) 4 mg Q6H PRN IV NAUSEA/VOMITING; Start 12/01/18 at 16:30 Docusate Sodium (Colace) 100 mg Q12H PRN PO .CONSTIPATION; Start 12/01/18 at 16:30 Magnesium Hydroxide (Milk Of Mag) 30 ml DAILY PRN PO .CONSTIPATION; Start 12/01/18 at 16:30 Enoxaparin Sodium (Lovenox) 30 mg DAILY SC Last administered on 12/06/18at 09:28; Admin Dose 30 MG; Start 12/02/18 at 09:00 Albuterol (Proventil 0.083% (Neb)) 2.5 mg Q2H RESP THERAPY PRN HHN SHORTNESS OF BREATH; Start 12/01/18 at 18:00 Piperacillin Sod/ Tazobactam Sod 100 ml @ 200 mls/hr Q8 IVPB Last administered on 12/07/18at 05:44; Admin Dose 200 MLS/HR; Start 12/01/18 at 22:00 Valproate Sodium 125 mg/Sodium Chloride 51.25 ml @ 55 mls/hr QHS IVPB Last administered on 12/06/18at 20:17; Admin Dose 55 MLS/HR; Start 12/02/18 at 21:00 Multivitamins (Multivitamin) 30 ml DAILY GTB Last administered on 12/06/18 09:25; Admin Dose 30 ML; Start 12/03/18 at 12:00 Ferrous Sulfate (Feosol Liquid Cup) 300 mg DAILY NGT Last administered on 12/06/18at 09:26; Admin Dose 300 MG; Start 12/03/18 at 12:00 Labetalol HCl (Labetalol) 10 mg Q4H PRN IV sbp >160; Start 12/04/18 at 09:30 Ferric Sodium Gluconate Complex 125 mg/Sodium Chloride 110 ml @ 110 mls/hr DAILY@1300 IVPB Last administered on 12/06/18at 12:20; Admin Dose 110 MLS/HR; Start 12/04/18 at 15:00; Stop 12/08/18 at 13:59 Dextrose/Sodium Chloride 1,000 ml @ 50 mls/hr Q20H IV Last administered on 12/05/18at 17:23; Admin Dose 50 MLS/HR; Start 12/05/18 at 17:00 Amiodarone HCl (Cordarone) 200 mg DAILY NGT ; Start 12/07/18 at 09:00 VTE Prophylaxis Risk score (from Ns)>0 risk: 10 SCD applied (from Nsg): Yes Lines/Catheters IV Catheter Type: Trent in Place: No Assessment/Plan Hospital Course Subjective Patient improved mentally significantly, is able to converse and is likely back to near baseline Objective Physical exam General: Patient is laying in bed, on nasal cannula Mentation: Patient is alert and oriented x1 Head: Normocephalic atraumatic Eyes: EOMI, Neck: Supple, nontender, midline Respiratory: Coarse to auscultation bilaterally Cardiovascular: regular rate, no obvious murmurs Gastrointestinal: non-tender to palpation, bowel sounds heard. Neurological: Moves all extremities spontaneously to noxious stimuli Skin: No new skin lesions Assessment/Plan septic shock secondary to UTI/bacteremia/PNA, resolving -IV antibiotic, broad-spectrum, infectious disease on board -E. coli and coag negative staph on blood cultures -No pressors -Resolving Bacteremia -E. coli and coag negative staph -Continue antibiotics per infectious disease recommendations 7 cm abdominal aortic aneurysm -Cardiothoracic surgeon was consulted, patient not a candidate for surgery at this time due to multiple medical problems including sepsis -Patient will likely need further work-up outpatient PNA -cont abx per ID recs Acute on chronic encephalopathy, resolving -Patient's baseline is alert and oriented x1 per nursing staff at the [facility] -Patient likely was able to eat and ambulate according to jail facility -Patient does not have a conservator according to social media intern [facility], patient also has no family and interdisciplinary faculty at [facility] was making decisions. -CT head only shows chronic infarct -Encephalopathy is likely due to bacteremia and UTI. Arrhythmia, likely afib-aflutter - seen on EKG - Cardiology consultation appreciated - ECHO noted -Continue medications per cardiology MORTEZA -Resolved -Continue volume status, monitor closely, Hypernatremia -Nephrology consulted -Fluids per nephrology elevated BNP -Patient's chest x-ray does show some pulmonary edema, will defer to cardiology for the recommendations -Pulmonology also on board -Cardiology recommend spot dosing of Lasix, will defer to their recommendations UTI - UA noted - urine culture noted - broad spectrum antibiotic started - ID on board Acute respiratory distress -Now off BiPAP -Pulmonology consulted, Hypertension -Restart home medications when able, use PRN for now dementia -Baseline per jail facility was alert and oriented x1 Depression? - on depakote, will cont IV Diet -Per speech therapist recommendations Code status - Full Code Disposition -[facility] eval still pending -Continue current medical treatment with antibiotics. QASIM HWANG Dec 07, 2018 10:01
[2018-12-07] MEDS: MULTIVITAMINS 30 ML CUP GTB SCH (10:11)
[2018-12-07] MEDS: FERROUS SULFATE 60 MG/ML 5ML CUP NGT SCH (10:11)
[2018-12-07] MEDS: AMIODARONE 200 MG TAB NGT SCH (10:11)
[2018-12-07] MEDS: ENOXAPARIN 30 MG/0.3 ML SYG SC SCH (10:22)
[2018-12-07] MEDS: DEXTROSE 5%-0.45% NACL 1,000 ML IV SCH (10:34)
--- NOTE | 2018-12-07 11:41 | CONS ---
Consult Date/Type/Reason Admit Date/Time Dec 01, 2018 at 17:12 Initial Consult Date 12/05/18 Type of Consult Pulmonary Requesting Provider: QASIM HWANG Date/Time of Note DATE: 12/07/18 TIME: 11:40 Subjective Remains comfortable no respiratory distress Objective Vital Signs Date Temp Pulse Resp B/P (MAP) Pulse Ox O2 O2 Flow FiO2 Time Delivery Rate 12/07/18 98.1 58 19 111/58 95 10:00 (75) 12/07/18 Nasal 2.0 07:50 Cannula Intake and Output 12/06/18 12/06/18 12/07/18 1515:00 23:00 07:00 IntakeIntake Total 840 ml 151.25 ml 100 ml OutputOutput Total 440 ml BalanceBalance 400 ml 151.25 ml 100 ml Exam GENERAL: VITAL SIGNS: per chart NECK: Supple. No JVD or lymphadenopathy. CARDIAC EXAM: S1, S2. No added sounds or murmurs. CHEST: clear bilaterally, No added sounds, rales or wheezes ABDOMEN: Soft, nontender. No guarding or rebound. EXTREMITIES: No cyanosis, clubbing or edema. NEUROLOGIC: Generalized weakness. No focal deficits. Elderly appearing gentleman in no acute distress appears comfortable at rest Results/Medications Result Diagram: 12/07/18 0525 12/07/18 0525 Results 24 hrs Laboratory Tests Test 12/07/18 05:25 White Blood Count 8.7 Red Blood Count 3.38 L Hemoglobin 10.3 L Hematocrit 31.0 L Mean Corpuscular Volume 91.7 Mean Corpuscular Hemoglobin 30.5 Mean Corpuscular Hemoglobin Concent 33.2 Red Cell Distribution Width 14.8 H Platelet Count 330 Mean Platelet Volume 11.5 H Immature Granulocytes % 2.800 H Neutrophils % 73.0 Segmented Neutrophils % (Manual) 71 Band Neutrophils % (Manual) 1 Lymphocytes % 15.7 Lymphocytes % (Manual) 15 Reactive Lymphocytes % (Manual) 3 H Monocytes % 2.5 Monocytes % (Manual) 1 Eosinophils % 5.4 Eosinophils % (Manual) 5 Basophils % 0.6 Basophils % (Manual) 2 Myelocytes % (Manual) 2 H Nucleated Red Blood Cells % 0.0 Immature Granulocytes # 0.240 H Neutrophils # 6.4 Neutrophils # (Manual) 6.2 Band Neutrophils # 0.0 Lymphocytes (Manual) 1.3 Lymphocytes # 1.4 Reactive Lymphocytes # 0.2 H Monocytes # 0.2 L Monocytes # (Manual) 0.0 L Eosinophils # 0.5 Basophils # 0.1 Basophils # (Manual) 0.1 H Myelocytes # 0.1 H Nucleated Red Blood Cells # 0.0 Platelet Estimate NORMAL Giant Platelets 30 H Poikilocytosis 1+ Anisocytosis 1+ Sodium Level 142 Potassium Level 3.3 L Chloride Level 113 H Carbon Dioxide Level 22 Anion Gap 7 Blood Urea Nitrogen 10 Creatinine 0.93 Est Glomerular Filtrat Rate mL/min Glucose Level 81 Calcium Level 7.9 L Magnesium Level 2.2 Total Bilirubin 0.5 Direct Bilirubin 0.00 Indirect Bilirubin 0.5 Aspartate Amino Transf (AST/SGOT) 71 H Alanine Aminotransferase (ALT/SGPT) 61 Alkaline Phosphatase 118 Total Protein 5.9 L Albumin 2.4 L Globulin 3.50 H Albumin/Globulin Ratio 0.68 Medications Current Medications Acetaminophen (Tylenol Tab) 650 mg Q4H PRN PO MILD PAIN LEVEL 1-3 Last administered on 12/03/18at 17:07; Admin Dose 650 MG; Start 12/01/18 at 16:30 Bisacodyl (Dulcolax) 10 mg Q24H PRN PO CONSTIPATION; Start 12/01/18 at 16:30 Magnesium Hydroxide (Milk Of Mag) 30 ml Q24H PO Last administered on 12/04/18at 16:30; Admin Dose 30 ML; Start 12/01/18 at 16:30 IV Flush (NS 3 ml) 3 ml PER PROTOCOL IV ; Start 12/01/18 at 16:30 Ondansetron HCl (Zofran Inj) 4 mg Q6H PRN IV NAUSEA/VOMITING; Start 12/01/18 at 16:30 Docusate Sodium (Colace) 100 mg Q12H PRN PO .CONSTIPATION; Start 12/01/18 at 16:30 Magnesium Hydroxide (Milk Of Mag) 30 ml DAILY PRN PO .CONSTIPATION; Start 12/01/18 at 16:30 Enoxaparin Sodium (Lovenox) 30 mg DAILY SC Last administered on 12/07/18at 10:22; Admin Dose 30 MG; Start 12/02/18 at 09:00 Albuterol (Proventil 0.083% (Neb)) 2.5 mg Q2H RESP THERAPY PRN HHN SHORTNESS OF BREATH; Start 12/01/18 at 18:00 Piperacillin Sod/ Tazobactam Sod 100 ml @ 200 mls/hr Q8 IVPB Last administered on 12/07/18at 05:44; Admin Dose 200 MLS/HR; Start 12/01/18 at 22:00 Valproate Sodium 125 mg/Sodium Chloride 51.25 ml @ 55 mls/hr QHS IVPB Last administered on 12/06/18at 20:17; Admin Dose 55 MLS/HR; Start 12/02/18 at 21:00 Multivitamins (Multivitamin) 30 ml DAILY GTB Last administered on 12/07/18at 10:11; Admin Dose 30 ML; Start 12/03/18 at 12:00 Ferrous Sulfate (Feosol Liquid Cup) 300 mg DAILY NGT Last administered on 12/07/18at 10:11; Admin Dose 300 MG; Start 12/03/18 at 12:00 Labetalol HCl (Labetalol) 10 mg Q4H PRN IV sbp >160; Start 12/04/18 at 09:30 Ferric Sodium Gluconate Complex 125 mg/Sodium Chloride 110 ml @ 110 mls/hr DAILY@1300 IVPB Last administered on 12/06/18at 12:20; Admin Dose 110 MLS/HR; Start 12/04/18 at 15:00; Stop 12/08/18 at 13:59 Dextrose/Sodium Chloride 1,000 ml @ 50 mls/hr Q20H IV Last administered on 12/07/18at 10:34; Admin Dose 50 MLS/HR; Start 12/05/18 at 17:00 Amiodarone HCl (Cordarone) 200 mg DAILY NGT Last administered on 12/07/18at 10:11; Admin Dose 200 MG; Start 12/07/18 at 09:00 Assessment/Plan Hospital Course (Demo Recall) Assessment 1. Status post E. coli severe sepsis secondary to UTI 2. Resolving pneumonia with hypoxemic respiratory failure 3. History of seizure disorder 4. Electrolyte imbalance Plan 1. Speech therapy evaluation for dysphagia 2. Continue antibiotics consider de-escalation 3. Aspiration precautions 4. DVT GI prophylaxis DC planning okay from pulmonary standpoint FILIBERTO JAUREGUI MD, [facility] Dec 07, 2018 11:41
--- NOTE | 2018-12-07 12:05 | CONS ---
Assessment/Plan Assessment/Plan Hospital Course (Demo Recall) ID PROGRESS NOTE CURRENT ABX: DAY #7 => ZOSYN 12/07/18 0525 12/07/18 0525 24H INTERVAL SUMMARY * No fevers, overall improved -- still on supplemental O2 via NC 2L * DC planning -- OK to change Zosyn to Ceftriaxone 1 gm iv daily x 7 days = to complete 14 days total for GNR (+)BCX DIAGNOSTIC IMAGING * 12/04/18 CXR: Worsening bilateral perihilar and lower lobe infiltrates and worsening bilateral pleural effusions, left greater than right. * 12/05/18 CT CHEST: IMPRESSION: * 1. Large infrarenal abdominal aortic aneurysm is identified, measuring 7.2 cm in maximal diameter, without evidence for rupture. Vascular consultation is recommended. * 2. Moderate left and mild right pleural effusions. Nonspecific bilateral lower lobe pulmonary consolidation, greater on the left, possibly atelectasis and/or pneumonia. * 3. Coronary arterial and aortoiliac atherosclerotic calcifications. * 4. Trent catheter and right subclavian central venous catheter are in place. * 5. Colonic diverticulosis, without diverticulitis. MICRO * 12/03/18 BCX (-) * 12/02/18 BCX (-) * 12/01/18 URINE CULTURE Final Organism 1 ESCHERICHIA COLI COLONY COUNT >100,000 CFU/ml E COLI M.I.C. RX --------- --- AMPICILLIN <=2 S CEFAZOLIN S CEFOTAXIME S CIPROFLOXACIN >=4 R GENTAMICIN <=1 S LEVOFLOXACIN >=8 R NITROFURANTOIN <=16 S TOBRAMYCIN <=1 S TRIMETHOPRIM/SULFAMETHOXAZOLE <=20 S * 12/01/18 BLOOD CULTURE Final Organism 1 ESCHERICHIA COLI Organism 2 COAGULASE NEGATIVE STAPH E. COLI: Susceptibilities previously reported, see prior culture report of same specimen site. COAG NEG M.I.C. RX --------- --- CEFAZOLIN S CIPROFLOXACIN <=0.5 S CLINDAMYCIN <=0.25 S DOXYCYCLINE S ERYTHROMYCIN >=8 R LEVOFLOXACIN <=0.12 S OXACILLIN <=0.25 S PENICILLIN-G >=0.5 R RIFAMPIN <=0.5 S VANCOMYCIN 1 S TRIMETHOPRIM/SULFAMETHOXAZOLE <=10 S * 12/01/18 BLOOD CULTURE Final BCULT GRAM BOTTLE 1 Gram negative rods . seen on gram stain of the broth Organism 1 ESCHERICHIA COLI E COLI M.I.C. RX --------- --- AMPICILLIN <=2 S CEFAZOLIN I CEFOTAXIME S CIPROFLOXACIN >=4 R GENTAMICIN <=1 S LEVOFLOXACIN >=8 R TOBRAMYCIN <=1 S TRIMETHOPRIM/SULFAMETHOXAZOLE <=20 S PHYSICAL EXAMINATION: GENERAL: VSS, NAD HEENT: AT, NC, NECK: Supple, CHEST: Rise symmetrical HEART: Pulse RRR ABDOMEN: Benign EXTREMITIES: Warm, dry SKIN: No rash, no diaphoresis ID ASSESSMENT 88 yo M admit with: 1. Status post septic shock. 2. Escherichia coli urinary tract infection with bacteremia. 3. Pneumonia, possibly aspiration. 4. Coagulase-negative staph bacteremia consistent with contaminant. 5. Abdominal aortic aneurysm, vascular surgery on case. 6. Resolving transaminitis. 7. Status post rapid atrial fibrillation. (-)MRSA Nares ABX ALLERGIES: KNDA INVASIVES: PIV CURRENT ABX: DAY #7 => ZOSYN ID RECOMMENDATIONS/PLAN: 1. DC planning -- OK to change Zosyn to Ceftriaxone 1 gm iv daily x 7 days = to complete 14 days total for GNR (+)BCX . Consultation Date/Type/Reason Admit Date/Time Dec 01, 2018 at 17:12 Initial Consult Date 12/05/18 Requesting Provider: QASIM HWANG Date/Time of Note DATE: 12/07/18 TIME: 12:04 Exam/Review of Systems Exam Vitals Vital Signs Date Temp Pulse Resp B/P (MAP) Pulse Ox O2 O2 Flow FiO2 Time Delivery Rate 12/07/18 98.1 58 19 111/58 95 10:00 (75) 12/07/18 Nasal 2.0 07:50 Cannula Intake and Output 12/06/18 12/06/18 12/07/18 1515:00 23:00 07:00 IntakeIntake Total 840 ml 151.25 ml 100 ml OutputOutput Total 440 ml BalanceBalance 400 ml 151.25 ml 100 ml Results Result Diagram: 7/20/19 0525 12/07/18 0525 Results 24hrs Laboratory Tests Test 12/07/18 05:25 White Blood Count 8.7 Red Blood Count 3.38 L Hemoglobin 10.3 L Hematocrit 31.0 L Mean Corpuscular Volume 91.7 Mean Corpuscular Hemoglobin 30.5 Mean Corpuscular Hemoglobin Concent 33.2 Red Cell Distribution Width 14.8 H Platelet Count 330 Mean Platelet Volume 11.5 H Immature Granulocytes % 2.800 H Neutrophils % 73.0 Segmented Neutrophils % (Manual) 71 Band Neutrophils % (Manual) 1 Lymphocytes % 15.7 Lymphocytes % (Manual) 15 Reactive Lymphocytes % (Manual) 3 H Monocytes % 2.5 Monocytes % (Manual) 1 Eosinophils % 5.4 Eosinophils % (Manual) 5 Basophils % 0.6 Basophils % (Manual) 2 Myelocytes % (Manual) 2 H Nucleated Red Blood Cells % 0.0 Immature Granulocytes # 0.240 H Neutrophils # 6.4 Neutrophils # (Manual) 6.2 Band Neutrophils # 0.0 Lymphocytes (Manual) 1.3 Lymphocytes # 1.4 Reactive Lymphocytes # 0.2 H Monocytes # 0.2 L Monocytes # (Manual) 0.0 L Eosinophils # 0.5 Basophils # 0.1 Basophils # (Manual) 0.1 H Myelocytes # 0.1 H Nucleated Red Blood Cells # 0.0 Platelet Estimate NORMAL Giant Platelets 30 H Poikilocytosis 1+ Anisocytosis 1+ Sodium Level 142 Potassium Level 3.3 L Chloride Level 113 H Carbon Dioxide Level 22 Anion Gap 7 Blood Urea Nitrogen 10 Creatinine 0.93 Est Glomerular Filtrat Rate mL/min Glucose Level 81 Calcium Level 7.9 L Magnesium Level 2.2 Total Bilirubin 0.5 Direct Bilirubin 0.00 Indirect Bilirubin 0.5 Aspartate Amino Transf (AST/SGOT) 71 H Alanine Aminotransferase (ALT/SGPT) 61 Alkaline Phosphatase 118 Total Protein 5.9 L Albumin 2.4 L Globulin 3.50 H Albumin/Globulin Ratio 0.68 Medications Medication Current Medications Acetaminophen (Tylenol Tab) 650 mg Q4H PRN PO MILD PAIN LEVEL 1-3 Last administered on 12/03/18at 17:07; Admin Dose 650 MG; Start 12/01/18 at 16:30 Bisacodyl (Dulcolax) 10 mg Q24H PRN PO CONSTIPATION; Start 12/01/18 at 16:30 Magnesium Hydroxide (Milk Of Mag) 30 ml Q24H PO Last administered on 12/04/18at 16:30; Admin Dose 30 ML; Start 12/01/18 at 16:30 IV Flush (NS 3 ml) 3 ml PER PROTOCOL IV ; Start 12/01/18 at 16:30 Ondansetron HCl (Zofran Inj) 4 mg Q6H PRN IV NAUSEA/VOMITING; Start 12/01/18 at 16:30 Docusate Sodium (Colace) 100 mg Q12H PRN PO .CONSTIPATION; Start 12/01/18 at 16:30 Magnesium Hydroxide (Milk Of Mag) 30 ml DAILY PRN PO .CONSTIPATION; Start 12/01/18 at 16:30 Enoxaparin Sodium (Lovenox) 30 mg DAILY SC Last administered on 12/07/18at 10: 22; Admin Dose 30 MG; Start 12/02/18 at 09:00 Albuterol (Proventil 0.083% (Neb)) 2.5 mg Q2H RESP THERAPY PRN HHN SHORTNESS OF BREATH; Start 12/01/18 at 18:00 Piperacillin Sod/ Tazobactam Sod 100 ml @ 200 mls/hr Q8 IVPB Last administered on 12/07/18at 05:44; Admin Dose 200 MLS/HR; Start 12/01/18 at 22:00 Valproate Sodium 125 mg/Sodium Chloride 51.25 ml @ 55 mls/hr QHS IVPB Last administered on 12/06/18at 20:17; Admin Dose 55 MLS/HR; Start 12/02/18 at 21:00 Multivitamins (Multivitamin) 30 ml DAILY GTB Last administered on 12/07/18at 10:11; Admin Dose 30 ML; Start 12/03/18 at 12:00 Ferrous Sulfate (Feosol Liquid Cup) 300 mg DAILY NGT Last administered on 12/07/18at 10:11; Admin Dose 300 MG; Start 12/03/18 at 12:00 Labetalol HCl (Labetalol) 10 mg Q4H PRN IV sbp >160; Start 12/04/18 at 09:30 Ferric Sodium Gluconate Complex 125 mg/Sodium Chloride 110 ml @ 110 mls/hr DAILY@1300 IVPB Last administered on 12/06/18at 12:20; Admin Dose 110 MLS/HR; Start 12/04/18 at 15:00; Stop 12/08/18 at 13:59 Dextrose/Sodium Chloride 1,000 ml @ 50 mls/hr Q20H IV Last administered on 12/07/18at 10:34; Admin Dose 50 MLS/HR; Start 12/05/18 at 17:00 Amiodarone HCl (Cordarone) 200 mg DAILY NGT Last administered on 12/07/18at 10:11; Admin Dose 200 MG; Start 12/07/18 at 09:00 SHRUTI VILLA NP Dec 07, 2018 12:04
[2018-12-07] MEDS: SOD FERRIC GLUC COMPLX 125 MG in SOD CHLORIDE 0.9% 100 ML IVPB SCH (15:33)
[2018-12-07] MEDS: CEFTRIAXONE 1 GM/50 ML (PMX) 50 ML IVPB SCH (15:40)
[2018-12-07] MEDS: MAGNESIUM HYDROXIDE 30ML CUP PO SCH (16:22)
[2018-12-07] MEDS: VALPROATE INJ 125 MG in SOD CHLORIDE 0.9% 50 ML IVPB SCH (20:19)
[2018-12-08] VITALS (12 sets, daily range): BP systolic 123–155; BP diastolic 68–84; PULSE 51–78; RESP 18–20
[2018-12-08] MEDS: DEXTROSE 5%-0.45% NACL 1,000 ML IV SCH (04:54)
--- NOTE | 2018-12-08 09:23 | PN ---
Date/Time of Note Date/Time of Note DATE: 12/08/18 TIME: 09:22 Objective Vitals Vital Signs Date Temp Pulse Resp B/P (MAP) Pulse Ox O2 O2 Flow FiO2 Time Delivery Rate 12/08/18 Nasal 2.0 07:35 Cannula 12/08/18 97.8 55 20 152/75 97 07:16 (100) 12/08/18 28 01:02 Intake and Output 12/07/18 12/07/18 12/08/18 1515:00 23:00 07:00 IntakeIntake Total 340 ml 230 ml OutputOutput Total 1250 ml 850 ml BalanceBalance 340 ml -1020 ml -850 ml Results Result Diagram: 12/08/18 0510 12/08/18 0510 Medications Medications Current Medications Acetaminophen (Tylenol Tab) 650 mg Q4H PRN PO MILD PAIN LEVEL 1-3 Last administered on 12/03/18at 17:07; Admin Dose 650 MG; Start 12/01/18 at 16:30 Bisacodyl (Dulcolax) 10 mg Q24H PRN PO CONSTIPATION; Start 12/01/18 at 16:30 Magnesium Hydroxide (Milk Of Mag) 30 ml Q24H PO Last administered on 12/07/18at 16:22; Admin Dose 30 ML; Start 12/01/18 at 16:30 IV Flush (NS 3 ml) 3 ml PER PROTOCOL IV ; Start 12/01/18 at 16:30 Ondansetron HCl (Zofran Inj) 4 mg Q6H PRN IV NAUSEA/VOMITING; Start 12/01/18 at 16:30 Docusate Sodium (Colace) 100 mg Q12H PRN PO .CONSTIPATION; Start 12/01/18 at 16:30 Magnesium Hydroxide (Milk Of Mag) 30 ml DAILY PRN PO .CONSTIPATION; Start 12/01/18 at 16:30 Enoxaparin Sodium (Lovenox) 30 mg DAILY SC Last administered on 12/07/18at 10:2 2; Admin Dose 30 MG; Start 12/02/18 at 09:00 Albuterol (Proventil 0.083% (Neb)) 2.5 mg Q2H RESP THERAPY PRN HHN SHORTNESS OF BREATH; Start 12/01/18 at 18:00 Valproate Sodium 125 mg/Sodium Chloride 51.25 ml @ 55 mls/hr QHS IVPB Last administered on 12/07/18at 20:19; Admin Dose 55 MLS/HR; Start 12/02/18 at 21:00 Multivitamins (Multivitamin) 30 ml DAILY GTB Last administered on 12/07/18at 10:11; Admin Dose 30 ML; Start 12/03/18 at 12:00 Ferrous Sulfate (Feosol Liquid Cup) 300 mg DAILY NGT Last administered on 12/07/18 10:11; Admin Dose 300 MG; Start 12/03/18 at 12:00 Labetalol HCl (Labetalol) 10 mg Q4H PRN IV sbp >160; Start 12/04/18 at 09:30 Ferric Sodium Gluconate Complex 125 mg/Sodium Chloride 110 ml @ 110 mls/hr DAILY@1300 IVPB Last administered on 12/07/18at 15:33; Admin Dose 110 MLS/HR; Start 12/04/18 at 15:00; Stop 12/08/18 at 13:59 Dextrose/Sodium Chloride 1,000 ml @ 50 mls/hr Q20H IV Last administered on 12/08/18at 04:54; Admin Dose 50 MLS/HR; Start 12/05/18 at 17:00 Amiodarone HCl (Cordarone) 200 mg DAILY NGT Last administered on 12/07/18 10:11; Admin Dose 200 MG; Start 12/07/18 at 09:00 Ceftriaxone Sodium 50 ml @ 100 mls/hr Q24H IVPB Last administered on 12/07/18at 15:40; Admin Dose 100 MLS/HR; Start 12/07/18 at 14:30; Stop 12/14/18 at 14:29 VTE Prophylaxis Risk score (from Nsg)>0 risk: 9 SCD applied (from Nsg): Yes Lines/Catheters IV Catheter Type: Trent in Place: No Assessment/Plan Hospital Course Subjective Patient improved mentally significantly, is able to converse and is likely back to near baseline Objective Physical exam General: Patient is laying in bed, on nasal cannula Mentation: Patient is alert and oriented x1 Head: Normocephalic atraumatic Eyes: EOMI, Neck: Supple, nontender, midline Respiratory: Coarse to auscultation bilaterally Cardiovascular: regular rate, no obvious murmurs Gastrointestinal: non-tender to palpation, bowel sounds heard. Neurological: Moves all extremities spontaneously to noxious stimuli Skin: No new skin lesions Assessment/Plan septic shock secondary to UTI/bacteremia/PNA, resolving -IV antibiotic, broad-spectrum, infectious disease on board -E. coli and coag negative staph on blood cultures -No pressors -Resolving Bacteremia -E. coli and coag negative staph -Continue antibiotics per infectious disease recommendations 7 cm abdominal aortic aneurysm -Cardiothoracic surgeon was consulted, patient not a candidate for surgery at this time due to multiple medical problems including sepsis -Patient will likely need further work-up outpatient PNA -cont abx per ID recs Acute on chronic encephalopathy, resolving -Patient's baseline is alert and oriented x1 per nursing staff at the senior care -Patient likely was able to eat and ambulate according to nursing home [facility] -Patient does not have a conservator according to manager social and [facility], patient also has no family and interdisciplinary faculty at [facility] was making decisions. -CT head only shows chronic infarct -Encephalopathy is likely due to bacteremia and UTI. Arrhythmia, likely afib-aflutter - seen on EKG - Cardiology consultation appreciated - ECHO noted -Continue medications per cardiology MORTEZA -Resolved -Continue volume status, monitor closely, Hypernatremia -Nephrology consulted -Fluids per nephrology elevated BNP -Patient's chest x-ray does show some pulmonary edema, will defer to cardiology for the recommendations -Pulmonology also on board -Cardiology recommend spot dosing of Lasix, will defer to their recommendations UTI - UA noted - urine culture noted - broad spectrum antibiotic started - ID on board Acute respiratory distress -Now off BiPAP -Pulmonology consulted, Hypertension -Restart home medications when able, use PRN for now dementia -Baseline per nursing home facility was alert and oriented x1 Depression? - on depakote, will cont IV Diet -Per speech therapist recommendations Code status - Full Code Disposition -Benjy zhao still pending, however unlikely acceptance, will look into transferring back into patient's old nursing home facility however currently patient still is in need of restraints, will attempt to DC restraints by removing patient's central line which is causing him some discomfort. -Continue current medical treatment with antibiotics. QASIM HWANG Dec 08, 2018 09:23
[2018-12-08] MEDS: MULTIVITAMINS 30 ML CUP GTB SCH (09:35)
[2018-12-08] MEDS: FERROUS SULFATE 60 MG/ML 5ML CUP NGT SCH (09:35)
[2018-12-08] MEDS: AMIODARONE 200 MG TAB NGT SCH (09:35)
[2018-12-08] MEDS: ENOXAPARIN 30 MG/0.3 ML SYG SC SCH (09:49)
--- NOTE | 2018-12-08 10:34 | PN ---
Date/Time of Note Date/Time of Note DATE: 12/08/18 TIME: 10:34 Assessment/Plan Lines/Catheters IV Catheter Type (from Nrsg): Trent in Place (from Nrsg): No Assessment/Plan Assessment/Plan Septic shock, off IV pressor Paroxysmal atrial flutter, currently sinus rhythm Encephalopathy Renal dysfunction Abdominal aortic aneurysm 7 cm no signs of leak or rupture or dissection at this time the patient is not a candidate to undergo abdominal aortic aneurysm repair because of multiple medical problems including sepsis with monitor the patient when patient's clinical condition improved will need cardiology evaluation prior to undergoing endovascular repair of abdominal aortic aneurysm Subjective 24 Hr Interval Summary Constitutional: improved Pain Control: mild Exam/Review of Systems Vital Signs Vitals Vital Signs Date Temp Pulse Resp B/P (MAP) Pulse Ox O2 O2 Flow FiO2 Time Delivery Rate 12/08/18 97.8 56 20 150/70 98 Nasal 09:30 (96) Cannula 12/08/18 2.0 07:35 12/08/18 28 01:02 Intake and Output 12/07/18 12/07/18 12/08/18 1515:00 23:00 07:00 IntakeIntake Total 340 ml 230 ml OutputOutput Total 1250 ml 850 ml BalanceBalance 340 ml -1020 ml -850 ml Exam Eyes: nl conjunctiva, EOMI, nl lids, nl sclera ENMT: nl external ears & nose, nl lips & teeth, nl nasal mucosa & septum, mucosa pink and moist Neck: supple, non-tender Respiratory: clear to auscultation, normal air movement Cardiovascular: regular rate and rhythm, nl pulses Gastrointestinal: soft, nl liver, spleen, non-tender Musculoskeletal: nl extremities to inspection, nl gait and stance Results Result Diagram: 12/08/18 0510 12/08/18 0510 DAVID CERDA MD Dec 08, 2018 10:34
--- NOTE | 2018-12-08 11:48 | CONS ---
Consult Date/Type/Reason Admit Date/Time Dec 01, 2018 at 17:12 Initial Consult Date 12/05/18 Type of Consult Pulmonary Requesting Provider: QASIM HWANG Date/Time of Note DATE: 12/08/18 TIME: 11:46 Subjective Bradycardia overnight heart rate decreased to the 30s per nursing staff. Objective Vital Signs Date Temp Pulse Resp B/P (MAP) Pulse Ox O2 O2 Flow FiO2 Time Delivery Rate 12/08/18 97.6 63 20 155/84 97 Nasal 11:34 (107) Cannula 12/08/18 2.0 07:35 12/08/18 28 01:02 Intake and Output 12/07/18 12/07/18 12/08/18 1515:00 23:00 07:00 IntakeIntake Total 340 ml 230 ml OutputOutput Total 1250 ml 850 ml BalanceBalance 340 ml -1020 ml -850 ml Exam GENERAL: VITAL SIGNS: per chart NECK: Supple. No JVD or lymphadenopathy. CARDIAC EXAM: S1, S2. No added sounds or murmurs. CHEST: clear bilaterally, No added sounds, rales or wheezes ABDOMEN: Soft, nontender. No guarding or rebound. EXTREMITIES: No cyanosis, clubbing or edema. NEUROLOGIC: Generalized weakness. No focal deficits. Elderly appearing gentleman in no acute distress appears comfortable at rest Vent Setting Fraction of Inspired Oxygen pe: 28 Results/Medications Result Diagram: 12/08/18 0510 12/08/18 0510 Results 24 hrs Laboratory Tests Test 12/08/18 05:10 White Blood Count 7.5 Red Blood Count 3.47 L Hemoglobin 10.6 L Hematocrit 32.3 L Mean Corpuscular Volume 93.1 Mean Corpuscular Hemoglobin 30.5 Mean Corpuscular Hemoglobin Concent 32.8 Red Cell Distribution Width 14.6 H Platelet Count 381 Mean Platelet Volume 11.3 H Immature Granulocytes % 2.300 H Neutrophils % 68.8 Lymphocytes % 18.3 Monocytes % 3.9 Eosinophils % 5.8 Basophils % 0.9 Nucleated Red Blood Cells % 0.0 Immature Granulocytes # 0.170 H Neutrophils # 5.1 Lymphocytes # 1.4 Monocytes # 0.3 Eosinophils # 0.4 Basophils # 0.1 Nucleated Red Blood Cells # 0.0 Sodium Level 141 Potassium Level 3.4 L Chloride Level 112 H Carbon Dioxide Level 23 Anion Gap 6 Blood Urea Nitrogen 6 L Creatinine 0.87 Est Glomerular Filtrat Rate mL/min Glucose Level 94 Calcium Level 7.9 L Magnesium Level 2.1 Total Bilirubin 0.4 Direct Bilirubin 0.00 Indirect Bilirubin 0.4 Aspartate Amino Transf (AST/SGOT) 72 H Alanine Aminotransferase (ALT/SGPT) 63 Alkaline Phosphatase 117 Total Protein 6.3 Albumin 2.6 L Globulin 3.70 H Albumin/Globulin Ratio 0.70 Medications Current Medications Acetaminophen (Tylenol Tab) 650 mg Q4H PRN PO MILD PAIN LEVEL 1-3 Last administered on 12/03/18at 17:07; Admin Dose 650 MG; Start 12/01/18 at 16:30 Bisacodyl (Dulcolax) 10 mg Q24H PRN PO CONSTIPATION; Start 12/01/18 at 16:30 Magnesium Hydroxide (Milk Of Mag) 30 ml Q24H PO Last administered on 12/07/18at 16:22; Admin Dose 30 ML; Start 12/01/18 at 16:30 IV Flush (NS 3 ml) 3 ml PER PROTOCOL IV ; Start 12/01/18 at 16:30 Ondansetron HCl (Zofran Inj) 4 mg Q6H PRN IV NAUSEA/VOMITING; Start 12/01/18 at 16:30 Docusate Sodium (Colace) 100 mg Q12H PRN PO .CONSTIPATION; Start 12/01/18 at 16:30 Magnesium Hydroxide (Milk Of Mag) 30 ml DAILY PRN PO .CONSTIPATION; Start 12/01/18 at 16:30 Enoxaparin Sodium (Lovenox) 30 mg DAILY SC Last administered on 12/08/18at 09:49; Admin Dose 30 MG; Start 12/02/18 at 09:00 Albuterol (Proventil 0.083% (Neb)) 2.5 mg Q2H RESP THERAPY PRN HHN SHORTNESS OF BREATH; Start 12/01/18 at 18:00 Valproate Sodium 125 mg/Sodium Chloride 51.25 ml @ 55 mls/hr QHS IVPB Last administered on 12/07/18at 20:19; Admin Dose 55 MLS/HR; Start 12/02/18 at 21:00 Multivitamins (Multivitamin) 30 ml DAILY GTB Last administered on 12/08/18at 09:35; Admin Dose 30 ML; Start 12/03/18 at 12:00 Ferrous Sulfate (Feosol Liquid Cup) 300 mg DAILY NGT Last administered on 12/08/18at 09:35; Admin Dose 300 MG; Start 12/03/18 at 12:00 Labetalol HCl (Labetalol) 10 mg Q4H PRN IV sbp >160; Start 12/04/18 at 09:30 Ferric Sodium Gluconate Complex 125 mg/Sodium Chloride 110 ml @ 110 mls/hr DAILY@1300 IVPB Last administered on 12/07/18at 15:33; Admin Dose 110 MLS/HR; Start 12/04/18 at 15:00; Stop 12/08/18 at 13:59 Dextrose/Sodium Chloride 1,000 ml @ 50 mls/hr Q20H IV Last administered on 12/08/18at 04:54; Admin Dose 50 MLS/HR; Start 12/05/18 at 17:00 Amiodarone HCl (Cordarone) 200 mg DAILY NGT Last administered on 12/08/18at 09:35; Admin Dose 200 MG; Start 12/07/18 at 09:00 Ceftriaxone Sodium 50 ml @ 100 mls/hr Q24H IVPB Last administered on 12/07/18at 15:40; Admin Dose 100 MLS/HR; Start 12/07/18 at 14:30; Stop 12/14/18 at 14:29 Assessment/Plan Hospital Course (Demo Recall) Well assessment 1. Status post E. coli severe sepsis secondary to UTI 2. Resolving pneumonia with hypoxemic respiratory failure 3. History of seizure disorder 4. Electrolyte imbalance 5. Bradycardia questionable sick sinus syndrome Plan 1. Speech therapy evaluation for dysphagia 2. Continue antibiotics consider de-escalation 3. Aspiration precautions 4. DVT GI prophylaxis 5. Cardiology evaluation May need echocardiogram. DC planning okay from pulmonary standpoint FILIBERTO JAUREGUI MD, [facility] Dec 08, 2018 11:47
[2018-12-08] MEDS: SOD FERRIC GLUC COMPLX 125 MG in SOD CHLORIDE 0.9% 100 ML IVPB SCH (13:10)
--- NOTE | 2018-12-08 14:20 | CONS ---
Assessment/Plan Assessment/Plan Hospital Course (Demo Recall) ID PROGRESS NOTE CURRENT ABX: DAY #8 => Ceftriaxone #2 s/p ZOSYN 24H INTERVAL SUMMARY * CLINICALLY STATUS QUO -- resting without distress -- No fevers, overall improved -- still on supplemental O2 via NC 2L * DC planning -- OK to change Zosyn to Ceftriaxone 1 gm iv daily x 7 days = to complete 14 days total for GNR (+)BCX DIAGNOSTIC IMAGING * 12/04/18 CXR: Worsening bilateral perihilar and lower lobe infiltrates and worsening bilateral pleural effusions, left greater than right. * 12/05/18 CT CHEST: IMPRESSION: * 1. Large infrarenal abdominal aortic aneurysm is identified, measuring 7.2 cm in maximal diameter, without evidence for rupture. Vascular consultation is recommended. * 2. Moderate left and mild right pleural effusions. Nonspecific bilateral lower lobe pulmonary consolidation, greater on the left, possibly atelectasis and/or pneumonia. * 3. Coronary arterial and aortoiliac atherosclerotic calcifications. * 4. Trent catheter and right subclavian central venous catheter are in place. * 5. Colonic diverticulosis, without diverticulitis. MICRO * 12/03/18 BCX (-) * 12/02/18 BCX (-) * 12/01/18 URINE CULTURE Final Organism 1 ESCHERICHIA COLI COLONY COUNT >100,000 CFU/ml E COLI M.I.C. RX --------- --- AMPICILLIN <=2 S CEFAZOLIN S CEFOTAXIME S CIPROFLOXACIN >=4 R GENTAMICIN <=1 S LEVOFLOXACIN >=8 R NITROFURANTOIN <=16 S TOBRAMYCIN <=1 S TRIMETHOPRIM/SULFAMETHOXAZOLE <=20 S * 12/01/18 BLOOD CULTURE Final Organism 1 ESCHERICHIA COLI Organism 2 COAGULASE NEGATIVE STAPH E. COLI: Susceptibilities previously reported, see prior culture report of same specimen site. COAG NEG M.I.C. RX --------- --- CEFAZOLIN S CIPROFLOXACIN <=0.5 S CLINDAMYCIN <=0.25 S DOXYCYCLINE S ERYTHROMYCIN >=8 R LEVOFLOXACIN <=0.12 S OXACILLIN <=0.25 S PENICILLIN-G >=0.5 R RIFAMPIN <=0.5 S VANCOMYCIN 1 S TRIMETHOPRIM/SULFAMETHOXAZOLE <=10 S * 12/01/18 BLOOD CULTURE Final BCULT GRAM BOTTLE 1 Gram negative rods . seen on gram stain of the broth Organism 1 ESCHERICHIA COLI E COLI M.I.C. RX --------- --- AMPICILLIN <=2 S CEFAZOLIN I CEFOTAXIME S CIPROFLOXACIN >=4 R GENTAMICIN <=1 S LEVOFLOXACIN >=8 R TOBRAMYCIN <=1 S TRIMETHOPRIM/SULFAMETHOXAZOLE <=20 S PHYSICAL EXAMINATION: GENERAL: VSS, NAD HEENT: AT, NC, NECK: Supple, CHEST: Rise symmetrical HEART: Pulse RRR ABDOMEN: Benign EXTREMITIES: Warm, dry SKIN: No rash, no diaphoresis ID ASSESSMENT 88 yo M admit with: 1. Status post septic shock. 2. Escherichia coli urinary tract infection with bacteremia. 3. Pneumonia, possibly aspiration. 4. Coagulase-negative staph bacteremia consistent with contaminant. 5. Abdominal aortic aneurysm, vascular surgery on case. 6. Resolving transaminitis. 7. Status post rapid atrial fibrillation. (-)MRSA Nares ABX ALLERGIES: KNDA INVASIVES: PIV CURRENT ABX: DAY #8 => Ceftriaxone #2 s/p ZOSYN ID RECOMMENDATIONS/PLAN: 1. DC planning -- May DC on Ceftriaxone 1 gm iv daily x 7 days = to complete 14 days total for GNR (+)BCX * Today is day #8 / 14 days IV ABX . Consultation Date/Type/Reason Admit Date/Time Dec 01, 2018 at 17:12 Initial Consult Date 12/05/18 Requesting Provider: AQSIM HWANG Date/Time of Note DATE: 12/08/18 TIME: 14:18 Exam/Review of Systems Exam Vitals Vital Signs Date Temp Pulse Resp B/P (MAP) Pulse Ox O2 O2 Flow FiO2 Time Delivery Rate 12/08/18 98.8 62 20 123/70 96 Nasal 13:35 (87) Cannula 12/08/18 2.0 07:35 12/08/18 28 01:02 Intake and Output 12/07/18 12/07/18 12/08/18 1515:00 23:00 07:00 IntakeIntake Total 340 ml 230 ml OutputOutput Total 1250 ml 850 ml BalanceBalance 340 ml -1020 ml -850 ml Results Result Diagram: 12/08/18 0510 12/08/18 0510 Results 24hrs Laboratory Tests Test 12/08/18 05:10 White Blood Count 7.5 Red Blood Count 3.47 L Hemoglobin 10.6 L Hematocrit 32.3 L Mean Corpuscular Volume 93.1 Mean Corpuscular Hemoglobin 30.5 Mean Corpuscular Hemoglobin Concent 32.8 Red Cell Distribution Width 14.6 H Platelet Count 381 Mean Platelet Volume 11.3 H Immature Granulocytes % 2.300 H Neutrophils % 68.8 Lymphocytes % 18.3 Monocytes % 3.9 Eosinophils % 5.8 Basophils % 0.9 Nucleated Red Blood Cells % 0.0 Immature Granulocytes # 0.170 H Neutrophils # 5.1 Lymphocytes # 1.4 Monocytes # 0.3 Eosinophils # 0.4 Basophils # 0.1 Nucleated Red Blood Cells # 0.0 Sodium Level 141 Potassium Level 3.4 L Chloride Level 112 H Carbon Dioxide Level 23 Anion Gap 6 Blood Urea Nitrogen 6 L Creatinine 0.87 Est Glomerular Filtrat Rate mL/min Glucose Level 94 Calcium Level 7.9 L Magnesium Level 2.1 Total Bilirubin 0.4 Direct Bilirubin 0.00 Indirect Bilirubin 0.4 Aspartate Amino Transf (AST/SGOT) 72 H Alanine Aminotransferase (ALT/SGPT) 63 Alkaline Phosphatase 117 Total Protein 6.3 Albumin 2.6 L Globulin 3.70 H Albumin/Globulin Ratio 0.70 Medications Medication Current Medications Acetaminophen (Tylenol Tab) 650 mg Q4H PRN PO MILD PAIN LEVEL 1-3 Last administered on 12/03/18at 17:07; Admin Dose 650 MG; Start 12/01/18 at 16:30 Bisacodyl (Dulcolax) 10 mg Q24H PRN PO CONSTIPATION; Start 12/01/18 at 16:30 Magnesium Hydroxide (Milk Of Mag) 30 ml Q24H PO Last administered on 12/07/18at 16:22; Admin Dose 30 ML; Start 12/01/18 at 16:30 IV Flush (NS 3 ml) 3 ml PER PROTOCOL IV ; Start 12/01/18 at 16:30 Ondansetron HCl (Zofran Inj) 4 mg Q6H PRN IV NAUSEA/VOMITING; Start 12/01/18 at 16:30 Docusate Sodium (Colace) 100 mg Q12H PRN PO .CONSTIPATION; Start 12/01/18 at 16:30 Magnesium Hydroxide (Milk Of Mag) 30 ml DAILY PRN PO .CONSTIPATION; Start 12/01/18 at 16:30 Enoxaparin Sodium (Lovenox) 30 mg DAILY SC Last administered on 12/08/18 09:49; Admin Dose 30 MG; Start 12/02/18 at 09:00 Albuterol (Proventil 0.083% (Neb)) 2.5 mg Q2H RESP THERAPY PRN HHN SHORTNESS OF BREATH; Start 12/01/18 at 18:00 Valproate Sodium 125 mg/Sodium Chloride 51.25 ml @ 55 mls/hr QHS IVPB Last administered on 12/07/18 20:19; Admin Dose 55 MLS/HR; Start 12/02/18 at 21:00 Multivitamins (Multivitamin) 30 ml DAILY GTB Last administered on 12/08/18 09:35; Admin Dose 30 ML; Start 12/03/18 at 12:00 Ferrous Sulfate (Feosol Liquid Cup) 300 mg DAILY NGT Last administered on 09:35; Admin Dose 300 MG; Start 12/03/18 at 12:00 Labetalol HCl (Labetalol) 10 mg Q4H PRN IV sbp >160; Start 12/04/18 at 09:30 Dextrose/Sodium Chloride 1,000 ml @ 50 mls/hr Q20H IV Last administered on 12/08/18 04:54; Admin Dose 50 MLS/HR; Start 12/05/18 at 17:00 Amiodarone HCl (Cordarone) 200 mg DAILY NGT Last administered on 12/08/18 09:35; Admin Dose 200 MG; Start 12/07/18 at 09:00 Ceftriaxone Sodium 50 ml @ 100 mls/hr Q24H IVPB Last administered on 12/07/18 15:40; Admin Dose 100 MLS/HR; Start 12/07/18 at 14:30; Stop 12/14/18 at 14:29 SHRUTI VILLA NP Dec 08, 2018 14:19
[2018-12-08] MEDS: CEFTRIAXONE 1 GM/50 ML (PMX) 50 ML IVPB SCH (14:38)
[2018-12-08] MEDS: MAGNESIUM HYDROXIDE 30ML CUP PO SCH (16:44)
[2018-12-08] MEDS: VALPROATE INJ 125 MG in SOD CHLORIDE 0.9% 50 ML IVPB SCH (20:39)
--- NOTE | 2018-12-08 20:52 | CONS ---
Assessment/Plan Assessment/Plan Assessment/Plan (Daily) 1. acute hypernatremia, due to free water deficit 2. septic shock due to PNA/UTI/bacteremia 3 acute UTI 4.acute hyoxic respiratory failure s/p BIPAP now 5. Acute on chronic encephalopathy 6. H/o HTN, CAD, dementia, depression, HLD, and osteoarthritis 7. Anemia of CKD with Iron deficiency Plan: K 3.4- BUN/Cr normal, other electrolytes stable - continue IVF D51/2 NS at 50 c c/hr, IV ferrlecit 125 mg IV daily x 5 days for iron deficiency IV abx ceftriaxone for 7 days, Renally dose all abx and monitor electorlytes will continue to follow up Consultation Date/Type/Reason Admit Date/Time Dec 01, 2018 at 17:12 Initial Consult Date 12/03/18 Type of Consult NEPHROLOGY Requesting Provider: QASIM HWANG Date/Time of Note DATE: 12/08/18 TIME: 20:52 24 HR Interval Summary Free Text/Dictation BUn/Cr improved to normal, K 3.4, Bp stable Exam/Review of Systems Exam Vitals Vital Signs Date Temp Pulse Resp B/P (MAP) Pulse Ox O2 O2 Flow FiO2 Time Delivery Rate 12/08/18 98.7 78 19 145/73 96 Nasal 20:00 (97) Cannula 12/08/18 2.0 18:28 12/08/18 28 01:02 Intake and Output 12/07/18 12/07/18 12/08/18 1515:00 23:00 07:00 IntakeIntake Total 340 ml 280 ml OutputOutput Total 1250 ml 850 ml BalanceBalance 340 ml -970 ml -850 ml Exam Constitutional: no acute distress Head: normocephalic Neck: supple, non-tender Respiratory: congested cough, diminished breath sounds Cardiovascular: regular rate and rhythm, nl pulses Gastrointestinal: soft Extremities: normal pulses Neurological: Non focal Results Result Diagram: 12/08/18 0510 12/08/18 0510 Results 24hrs Laboratory Tests Test 12/08/18 05:10 White Blood Count 7.5 Red Blood Count 3.47 L Hemoglobin 10.6 L Hematocrit 32.3 L Mean Corpuscular Volume 93.1 Mean Corpuscular Hemoglobin 30.5 Mean Corpuscular Hemoglobin Concent 32.8 Red Cell Distribution Width 14.6 H Platelet Count 381 Mean Platelet Volume 11.3 H Immature Granulocytes % 2.300 H Neutrophils % 68.8 Lymphocytes % 18.3 Monocytes % 3.9 Eosinophils % 5.8 Basophils % 0.9 Nucleated Red Blood Cells % 0.0 Immature Granulocytes # 0.170 H Neutrophils # 5.1 Lymphocytes # 1.4 Monocytes # 0.3 Eosinophils # 0.4 Basophils # 0.1 Nucleated Red Blood Cells # 0.0 Sodium Level 141 Potassium Level 3.4 L Chloride Level 112 H Carbon Dioxide Level 23 Anion Gap 6 Blood Urea Nitrogen 6 L Creatinine 0.87 Est Glomerular Filtrat Rate mL/min Glucose Level 94 Calcium Level 7.9 L Magnesium Level 2.1 Total Bilirubin 0.4 Direct Bilirubin 0.00 Indirect Bilirubin 0.4 Aspartate Amino Transf (AST/SGOT) 72 H Alanine Aminotransferase (ALT/SGPT) 63 Alkaline Phosphatase 117 Total Protein 6.3 Albumin 2.6 L Globulin 3.70 H Albumin/Globulin Ratio 0.70 Medications Medication Current Medications Acetaminophen (Tylenol Tab) 650 mg Q4H PRN PO MILD PAIN LEVEL 1-3 Last administered on 12/03/18at 17:07; Admin Dose 650 MG; Start 12/01/18 at 16:30 Bisacodyl (Dulcolax) 10 mg Q24H PRN PO CONSTIPATION; Start 12/01/18 at 16:30 Magnesium Hydroxide (Milk Of Mag) 30 ml Q24H PO Last administered on 12/08/18at 16:44; Admin Dose 30 ML; Start 12/01/18 at 16:30 IV Flush (NS 3 ml) 3 ml PER PROTOCOL IV ; Start 12/01/18 at 16:30 Ondansetron HCl (Zofran Inj) 4 mg Q6H PRN IV NAUSEA/VOMITING; Start 12/01/18 at 16:30 Docusate Sodium (Colace) 100 mg Q12H PRN PO .CONSTIPATION; Start 12/01/18 at 16:30 Magnesium Hydroxide (Milk Of Mag) 30 ml DAILY PRN PO .CONSTIPATION; Start at 16:30 Enoxaparin Sodium (Lovenox) 30 mg DAILY SC Last administered on 12/08/18at 09:49; Admin Dose 30 MG; Start 12/02/18 at 09:00 Albuterol (Proventil 0.083% (Neb)) 2.5 mg Q2H RESP THERAPY PRN HHN SHORTNESS OF BREATH; Start 12/01/18 at 18:00 Valproate Sodium 125 mg/Sodium Chloride 51.25 ml @ 55 mls/hr QHS IVPB Last administered on 12/08/18 20:39; Admin Dose 55 MLS/HR; Start 12/02/18 at 21:00 Multivitamins (Multivitamin) 30 ml DAILY GTB Last administered on 12/08/18 09:35; Admin Dose 30 ML; Start 12/03/18 at 12:00 Ferrous Sulfate (Feosol Liquid Cup) 300 mg DAILY NGT Last administered on 12/08/18 09:35; Admin Dose 300 MG; Start 12/03/18 at 12:00 Labetalol HCl (Labetalol) 10 mg Q4H PRN IV sbp >160; Start 12/04/18 at 09:30 Dextrose/Sodium Chloride 1,000 ml @ 50 mls/hr Q20H IV Last administered on 12/08/18 04:54; Admin Dose 50 MLS/HR; Start 12/05/18 at 17:00 Amiodarone HCl (Cordarone) 200 mg DAILY NGT Last administered on 12/08/18 09:35; Admin Dose 200 MG; Start 12/07/18 at 09:00 Ceftriaxone Sodium 50 ml @ 100 mls/hr Q24H IVPB Last administered on 12/08/18at 14:38; Admin Dose 100 MLS/HR; Start 12/07/18 at 14:30; Stop 12/14/18 at 14:29 SALAZAR MEDEL MD Dec 08, 2018 20:52
[2018-12-09] VITALS (9 sets, daily range): BP systolic 126–155; BP diastolic 75–96; PULSE 53–70; RESP 18–20
[2018-12-09] MEDS: DEXTROSE 5%-0.45% NACL 1,000 ML IV SCH ×2 (01:51→21:05)
[2018-12-09] MEDS: MULTIVITAMINS 30 ML CUP GTB SCH (09:51)
[2018-12-09] MEDS: AMIODARONE 200 MG TAB NGT SCH (09:51)
[2018-12-09] MEDS: FERROUS SULFATE 60 MG/ML 5ML CUP NGT SCH (09:51)
[2018-12-09] MEDS: ENOXAPARIN 30 MG/0.3 ML SYG SC SCH (10:12)
--- NOTE | 2018-12-09 11:54 | CONS ---
Assessment/Plan Assessment/Plan Assessment/Plan (Daily) 1. acute hypernatremia, due to free water deficit 2. septic shock due to PNA/UTI/bacteremia 3 acute UTI 4.acute hyoxic respiratory failure s/p BIPAP now 5. Acute on chronic encephalopathy 6. H/o HTN, CAD, dementia, depression, HLD, and osteoarthritis 7. Anemia of CKD with Iron deficiency Plan: BUN/Cr improved to normal, Other electrolytes stable - continue IVF D51/2 NS at 50 cc/hr, IV ferrlecit 125 mg IV daily x 5 days for iron deficiency IV abx ceftriaxone for 7 days, Renally dose all abx and monitor electorlytes will continue to follow up Consultation Date/Type/Reason Admit Date/Time Dec 01, 2018 at 17:12 Initial Consult Date 12/03/18 Type of Consult NEPHROLOGY Requesting Provider: QASIM HWANG Date/Time of Note DATE: 12/09/18 TIME: 11:54 Exam/Review of Systems Exam Vitals Vital Signs Date Temp Pulse Resp B/P (MAP) Pulse Ox O2 O2 Flow FiO2 Time Delivery Rate 12/09/18 97.9 56 19 149/80 95 10:06 (103) 12/09/18 2.0 09:10 12/08/18 Nasal 20:25 Cannula 12/08/18 28 01:02 Intake and Output 12/08/18 12/08/18 12/09/18 1515:00 23:00 07:00 IntakeIntake Total 350 ml 290 ml 375 ml OutputOutput Total 1100 ml 900 ml BalanceBalance 350 ml -810 ml -525 ml Exam Constitutional: no acute distress Head: normocephalic Neck: supple, non-tender Respiratory: congested cough, diminished breath sounds Cardiovascular: regular rate and rhythm, nl pulses Gastrointestinal: soft Extremities: normal pulses Neurological: Non focal Results Result Diagram: 12/09/18 0515 12/09/18 0515 Results 24hrs Laboratory Tests Test 12/09/18 05:15 White Blood Count 7.3 Red Blood Count 3.66 L Hemoglobin 11.1 L Hematocrit 33.8 L Mean Corpuscular Volume 92.3 Mean Corpuscular Hemoglobin 30.3 Mean Corpuscular Hemoglobin Concent 32.8 Red Cell Distribution Width 14.6 H Platelet Count 445 H Mean Platelet Volume 11.0 H Immature Granulocytes % 2.100 H Neutrophils % 66.9 Lymphocytes % 20.4 Monocytes % 4.0 Eosinophils % 5.5 Basophils % 1.1 Nucleated Red Blood Cells % 0.0 Immature Granulocytes # 0.150 H Neutrophils # 4.9 Lymphocytes # 1.5 Monocytes # 0.3 Eosinophils # 0.4 Basophils # 0.1 Nucleated Red Blood Cells # 0.0 Sodium Level 141 Potassium Level 3.6 Chloride Level 111 H Carbon Dioxide Level 24 Anion Gap 6 Blood Urea Nitrogen 4 L Creatinine 0.90 Est Glomerular Filtrat Rate mL/min Glucose Level 91 Calcium Level 8.4 Phosphorus Level 2.6 Magnesium Level 2.1 Medications Medication Current Medications Acetaminophen (Tylenol Tab) 650 mg Q4H PRN PO MILD PAIN LEVEL 1-3 Last administered on 12/03/18at 17:07; Admin Dose 650 MG; Start 12/01/18 at 16:30 Bisacodyl (Dulcolax) 10 mg Q24H PRN PO CONSTIPATION; Start 12/01/18 at 16:30 Magnesium Hydroxide (Milk Of Mag) 30 ml Q24H PO Last administered on 12/08/18at 16:44; Admin Dose 30 ML; Start 12/01/18 at 16:30 IV Flush (NS 3 ml) 3 ml PER PROTOCOL IV ; Start 12/01/18 at 16:30 Ondansetron HCl (Zofran Inj) 4 mg Q6H PRN IV NAUSEA/VOMITING; Start 12/01/18 at 16:30 Docusate Sodium (Colace) 100 mg Q12H PRN PO .CONSTIPATION; Start 12/01/18 at 16:30 Magnesium Hydroxide (Milk Of Mag) 30 ml DAILY PRN PO .CONSTIPATION; Start 12/01/18 at 16:30 Enoxaparin Sodium (Lovenox) 30 mg DAILY SC Last administered on 12/09/18at 10:12; Admin Dose 30 MG; Start 12/02/18 at 09:00 Albuterol (Proventil 0.083% (Neb)) 2.5 mg Q2H RESP THERAPY PRN HHN SHORTNESS OF BREATH; Start 12/01/18 at 18:00 Valproate Sodium 125 mg/Sodium Chloride 51.25 ml @ 55 mls/hr QHS IVPB Last administered on 12/08/18at 20:39; Admin Dose 55 MLS/HR; Start 12/02/18 at 21:00 Multivitamins (Multivitamin) 30 ml DAILY GTB Last administered on 12/09/18 09:51; Admin Dose 30 ML; Start 12/03/18 at 12:00 Ferrous Sulfate (Feosol Liquid Cup) 300 mg DAILY NGT Last administered on 12/09/18 09:51; Admin Dose 300 MG; Start 12/03/18 at 12:00 Labetalol HCl (Labetalol) 10 mg Q4H PRN IV sbp >160; Start 12/04/18 at 09:30 Dextrose/Sodium Chloride 1,000 ml @ 50 mls/hr Q20H IV Last administered on 12/09/18 01:51; Admin Dose 50 MLS/HR; Start 12/05/18 at 17:00 Amiodarone HCl (Cordarone) 200 mg DAILY NGT Last administered on 12/09/18 09:51; Admin Dose 200 MG; Start 12/07/18 at 09:00 Ceftriaxone Sodium 50 ml @ 100 mls/hr Q24H IVPB Last administered on 12/08/18at 14:38; Admin Dose 100 MLS/HR; Start 12/07/18 at 14:30; Stop 12/14/18 at 14:29 SALAZAR MEDEL MD Dec 09, 2018 11:54
--- NOTE | 2018-12-09 12:27 | CONS ---
Consult Date/Type/Reason Admit Date/Time Dec 01, 2018 at 17:12 Initial Consult Date 12/05/18 Type of Consult Pulmonary Requesting Provider: QASIM HWANG Date/Time of Note DATE: 12/09/18 TIME: 12:26 Subjective Patient comfortable no respiratory distress Objective Vital Signs Date Temp Pulse Resp B/P (MAP) Pulse Ox O2 O2 Flow FiO2 Time Delivery Rate 12/09/18 97.9 56 19 149/80 95 10:06 (103) 12/09/18 2.0 09:10 12/08/18 Nasal 20:25 Cannula 12/08/18 28 01:02 Intake and Output 12/08/18 12/08/18 12/09/18 1515:00 23:00 07:00 IntakeIntake Total 350 ml 290 ml 375 ml OutputOutput Total 1100 ml 900 ml BalanceBalance 350 ml -810 ml -525 ml Exam GENERAL: VITAL SIGNS: per chart NECK: Supple. No JVD or lymphadenopathy. CARDIAC EXAM: S1, S2. No added sounds or murmurs. CHEST: clear bilaterally, No added sounds, rales or wheezes ABDOMEN: Soft, nontender. No guarding or rebound. EXTREMITIES: No cyanosis, clubbing or edema. NEUROLOGIC: Generalized weakness. No focal deficits. Elderly appearing gentleman in no acute distress appears comfortable at rest Vent Setting Fraction of Inspired Oxygen pe: 28 Results/Medications Result Diagram: 12/09/18 0515 12/09/18 0515 Results 24 hrs Laboratory Tests Test 12/09/18 05:15 White Blood Count 7.3 Red Blood Count 3.66 L Hemoglobin 11.1 L Hematocrit 33.8 L Mean Corpuscular Volume 92.3 Mean Corpuscular Hemoglobin 30.3 Mean Corpuscular Hemoglobin Concent 32.8 Red Cell Distribution Width 14.6 H Platelet Count 445 H Mean Platelet Volume 11.0 H Immature Granulocytes % 2.100 H Neutrophils % 66.9 Lymphocytes % 20.4 Monocytes % 4.0 Eosinophils % 5.5 Basophils % 1.1 Nucleated Red Blood Cells % 0.0 Immature Granulocytes # 0.150 H Neutrophils # 4.9 Lymphocytes # 1.5 Monocytes # 0.3 Eosinophils # 0.4 Basophils # 0.1 Nucleated Red Blood Cells # 0.0 Sodium Level 141 Potassium Level 3.6 Chloride Level 111 H Carbon Dioxide Level 24 Anion Gap 6 Blood Urea Nitrogen 4 L Creatinine 0.90 Est Glomerular Filtrat Rate mL/min Glucose Level 91 Calcium Level 8.4 Phosphorus Level 2.6 Magnesium Level 2.1 Medications Current Medications Acetaminophen (Tylenol Tab) 650 mg Q4H PRN PO MILD PAIN LEVEL 1-3 Last administered on 12/03/18at 17:07; Admin Dose 650 MG; Start 12/01/18 at 16:30 Bisacodyl (Dulcolax) 10 mg Q24H PRN PO CONSTIPATION; Start 12/01/18 at 16:30 Magnesium Hydroxide (Milk Of Mag) 30 ml Q24H PO Last administered on 12/08/18at 16:44; Admin Dose 30 ML; Start 12/01/18 at 16:30 IV Flush (NS 3 ml) 3 ml PER PROTOCOL IV ; Start 12/01/18 at 16:30 Ondansetron HCl (Zofran Inj) 4 mg Q6H PRN IV NAUSEA/VOMITING; Start 12/01/18 at 16:30 Docusate Sodium (Colace) 100 mg Q12H PRN PO .CONSTIPATION; Start 12/01/18 at 16:30 Magnesium Hydroxide (Milk Of Mag) 30 ml DAILY PRN PO .CONSTIPATION; Start 12/01/18 at 16:30 Enoxaparin Sodium (Lovenox) 30 mg DAILY SC Last administered on 12/09/18at 10:12; Admin Dose 30 MG; Start 12/02/18 at 09:00 Albuterol (Proventil 0.083% (Neb)) 2.5 mg Q2H RESP THERAPY PRN HHN SHORTNESS OF BREATH; Start 12/01/18 at 18:00 Valproate Sodium 125 mg/Sodium Chloride 51.25 ml @ 55 mls/hr QHS IVPB Last administered on 12/08/18at 20:39; Admin Dose 55 MLS/HR; Start 12/02/18 at 21:00 Multivitamins (Multivitamin) 30 ml DAILY GTB Last administered on 12/09/18at 09:51; Admin Dose 30 ML; Start 12/03/18 at 12:00 Ferrous Sulfate (Feosol Liquid Cup) 300 mg DAILY NGT Last administered on 12/09/18at 09:51; Admin Dose 300 MG; Start 12/03/18 at 12:00 Labetalol HCl (Labetalol) 10 mg Q4H PRN IV sbp >160; Start 12/04/18 at 09:30 Dextrose/Sodium Chloride 1,000 ml @ 50 mls/hr Q20H IV Last administered on 12/09/18at 01:51; Admin Dose 50 MLS/HR; Start 12/05/18 at 17:00 Amiodarone HCl (Cordarone) 200 mg DAILY NGT Last administered on 12/09/18at 09:51; Admin Dose 200 MG; Start 12/07/18 at 09:00 Ceftriaxone Sodium 50 ml @ 100 mls/hr Q24H IVPB Last administered on 12/08/18at 14:38; Admin Dose 100 MLS/HR; Start 12/07/18 at 14:30; Stop 12/14/18 at 14:29 Assessment/Plan Hospital Course (Demo Recall) Assessment 1. Status post E. coli severe sepsis secondary to UTI 2. Resolving pneumonia with hypoxemic respiratory failure 3. History of seizure disorder 4. Electrolyte imbalance 5. Bradycardia questionable sick sinus syndrome Plan 1. Aspiration precautions 2. Continue antibiotics consider de-escalation 3. Aspiration precautions 4. DVT GI prophylaxis 5. Cardiology evaluation and recommendations Consider FILIBERTO Gotti MD, [facility] Dec 09, 2018 12:27
[2018-12-09] MEDS: CEFTRIAXONE 1 GM/50 ML (PMX) 50 ML IVPB SCH (15:29)
--- NOTE | 2018-12-09 15:46 | CONS ---
Assessment/Plan Assessment/Plan Hospital Course (Demo Recall) SUBJECTIVE: Patient is awake, confused, looks comfortable, no fevers INDWELLINGS: The patient has Trent catheter and a right chest triple-lumen catheter. ANTIMICROBIALS: Rocephin PHYSICAL EXAMINATION: GENERAL: This is a chronically ill-appearing, elderly man who is in no distress. HEENT: Head atraumatic, normocephalic. NECK: Supple. CHEST: Rise symmetrical. Breath sounds diminished to bases. HEART: S1, S2. ABDOMEN: Soft, bowel tones present. EXTREMITIES: Without cyanosis. ASSESSMENT: 1. Status post septic shock. 2. Escherichia coli urinary tract infection with bacteremia. 3. Pneumonia, possibly aspiration. 4. Coagulase-negative staph bacteremia consistent with contaminant. 5. Abdominal aortic aneurysm, vascular surgery on case. 6. Resolving transaminitis. 7. Status post rapid atrial fibrillation. PLAN: Stable, continue abx for 6 more days Consultation Date/Type/Reason Admit Date/Time Dec 01, 2018 at 17:12 Initial Consult Date 12/02/18 Type of Consult id Requesting Provider: QASIM HWANG Date/Time of Note DATE: 12/09/18 TIME: 15:45 Exam/Review of Systems Exam Vitals Vital Signs Date Temp Pulse Resp B/P (MAP) Pulse Ox O2 O2 Flow FiO2 Time Delivery Rate 12/09/18 97.4 55 19 142/76 95 15:06 (98) 12/09/18 2.0 09:10 12/09/18 Nasal 08:10 Cannula 12/08/18 28 01:02 Intake and Output 12/08/18 12/08/18 12/09/18 1414:59 22:59 06:59 IntakeIntake Total 350 ml 290 ml 375 ml OutputOutput Total 1100 ml 900 ml BalanceBalance 350 ml -810 ml -525 ml Results Result Diagram: 12/09/18 0515 12/09/18 0515 Results 24hrs Laboratory Tests Test 12/09/18 05:15 White Blood Count 7.3 Red Blood Count 3.66 L Hemoglobin 11.1 L Hematocrit 33.8 L Mean Corpuscular Volume 92.3 Mean Corpuscular Hemoglobin 30.3 Mean Corpuscular Hemoglobin Concent 32.8 Red Cell Distribution Width 14.6 H Platelet Count 445 H Mean Platelet Volume 11.0 H Immature Granulocytes % 2.100 H Neutrophils % 66.9 Lymphocytes % 20.4 Monocytes % 4.0 Eosinophils % 5.5 Basophils % 1.1 Nucleated Red Blood Cells % 0.0 Immature Granulocytes # 0.150 H Neutrophils # 4.9 Lymphocytes # 1.5 Monocytes # 0.3 Eosinophils # 0.4 Basophils # 0.1 Nucleated Red Blood Cells # 0.0 Sodium Level 141 Potassium Level 3.6 Chloride Level 111 H Carbon Dioxide Level 24 Anion Gap 6 Blood Urea Nitrogen 4 L Creatinine 0.90 Est Glomerular Filtrat Rate mL/min Glucose Level 91 Calcium Level 8.4 Phosphorus Level 2.6 Magnesium Level 2.1 Medications Medication Current Medications Acetaminophen (Tylenol Tab) 650 mg Q4H PRN PO MILD PAIN LEVEL 1-3 Last administered on 12/03/18at 17:07; Admin Dose 650 MG; Start 12/01/18 at 16:30 Bisacodyl (Dulcolax) 10 mg Q24H PRN PO CONSTIPATION; Start 12/01/18 at 16:30 Magnesium Hydroxide (Milk Of Mag) 30 ml Q24H PO Last administered on 12/08/18at 16:44; Admin Dose 30 ML; Start 12/01/18 at 16:30 IV Flush (NS 3 ml) 3 ml PER PROTOCOL IV ; Start 12/01/18 at 16:30 Ondansetron HCl (Zofran Inj) 4 mg Q6H PRN IV NAUSEA/VOMITING; Start 12/01/18 at 16:30 Docusate Sodium (Colace) 100 mg Q12H PRN PO .CONSTIPATION; Start 12/01/18 at 16:30 Magnesium Hydroxide (Milk Of Mag) 30 ml DAILY PRN PO .CONSTIPATION; Start 12/01/18 at 16:30 Enoxaparin Sodium (Lovenox) 30 mg DAILY SC Last administered on 12/09/18at 10:12; Admin Dose 30 MG; Start 12/02/18 at 09:00 Albuterol (Proventil 0.083% (Neb)) 2.5 mg Q2H RESP THERAPY PRN HHN SHORTNESS OF BREATH; Start 12/01/18 at 18:00 Valproate Sodium 125 mg/Sodium Chloride 51.25 ml @ 55 mls/hr QHS IVPB Last administered on 12/08/18at 20:39; Admin Dose 55 MLS/HR; Start 12/02/18 at 21:00 Multivitamins (Multivitamin) 30 ml DAILY GTB Last administered on 12/09/18at 0 9:51; Admin Dose 30 ML; Start 12/03/18 at 12:00 Ferrous Sulfate (Feosol Liquid Cup) 300 mg DAILY NGT Last administered on 12/09/18 09:51; Admin Dose 300 MG; Start 12/03/18 at 12:00 Labetalol HCl (Labetalol) 10 mg Q4H PRN IV sbp >160; Start 12/04/18 at 09:30 Dextrose/Sodium Chloride 1,000 ml @ 50 mls/hr Q20H IV Last administered on 12/09/18 01:51; Admin Dose 50 MLS/HR; Start 12/05/18 at 17:00 Amiodarone HCl (Cordarone) 200 mg DAILY NGT Last administered on 12/09/18 09:51; Admin Dose 200 MG; Start 12/07/18 at 09:00 Ceftriaxone Sodium 50 ml @ 100 mls/hr Q24H IVPB Last administered on 12/09/18 15:29; Admin Dose 100 MLS/HR; Start 12/07/18 at 14:30; Stop 12/14/18 at 14:29 ALYSON FONTANEZ NP Dec 09, 2018 15:46
--- NOTE | 2018-12-09 16:21 | PN ---
Date/Time of Note Date/Time of Note DATE: 12/09/18 TIME: 16:05 Assessment/Plan VTE Prophylaxis Risk score (from Nsg)>0 risk: 10 SCD applied (from Nsg): Yes Pharmacological prophylaxis: LMWH Lines/Catheters IV Catheter Type (from Nrsg): Saline Lock Urinary Cath still in place: Yes Reason Cath still needed: terminal illness/intractable pain Assessment/Plan Assessment/Plan 1. Septic shock secondary to UTI/bacteremia/PNA- resolving - Remains afebrile and WBC normal - ID on board and appreciate recommendations. Will need to continue antibiotics for 6 more days - E. coli and coag negative staph on initial blood cultures, with repeat negative 2. Bacteremia - E. coli and coag negative staph. repeat negative - Continue antibiotics per infectious disease recommendations 3. 7 cm abdominal aortic aneurysm - CT surgery consulted and patient high risk for surgical intervention - will continue with BP control - will need outpatient follow up 4. Acute hypoxic respiratory failure secondary to pneumonia, most likely aspiration - Pulm consultation appreciated - aspiration precautions - cont abx per ID recs 5. Acute on chronic encephalopathy, resolving - appears back to baseline - CT head only shows chronic infarct - Encephalopathy is likely due to bacteremia and UTI. 7. Arrhythmia, likely afib-aflutter - seen on EKG - Cardiology consultation appreciated - ECHO noted 8. MORTEZA - Resolved - appreciate Nephrology consultation - Continue volume status, monitor closely, 9. Hypernatremia- resolved 10. UTI - UA and cultures noted 11. Hypertension - BP stable 12. Dementia- stable - at baseline 13. Disposition - once off restraints for 24 hours will d/c back to [facility] Result Diagram: 12/09/18 0515 12/09/18 0515 Results 24hrs Laboratory Tests Test 12/09/18 05:15 White Blood Count 7.3 Red Blood Count 3.66 L Hemoglobin 11.1 L Hematocrit 33.8 L Mean Corpuscular Volume 92.3 Mean Corpuscular Hemoglobin 30.3 Mean Corpuscular Hemoglobin Concent 32.8 Red Cell Distribution Width 14.6 H Platelet Count 445 H Mean Platelet Volume 11.0 H Immature Granulocytes % 2.100 H Neutrophils % 66.9 Lymphocytes % 20.4 Monocytes % 4.0 Eosinophils % 5.5 Basophils % 1.1 Nucleated Red Blood Cells % 0.0 Immature Granulocytes # 0.150 H Neutrophils # 4.9 Lymphocytes # 1.5 Monocytes # 0.3 Eosinophils # 0.4 Basophils # 0.1 Nucleated Red Blood Cells # 0.0 Sodium Level 141 Potassium Level 3.6 Chloride Level 111 H Carbon Dioxide Level 24 Anion Gap 6 Blood Urea Nitrogen 4 L Creatinine 0.90 Est Glomerular Filtrat Rate mL/min Glucose Level 91 Calcium Level 8.4 Phosphorus Level 2.6 Magnesium Level 2.1 Subjective 24 Hr Interval Summary Free Text/Dictation Patient calm this am and answering simple questions. No acute issues noted. Exam/Review of Systems Exam Vitals Vital Signs Date Temp Pulse Resp B/P (MAP) Pulse Ox O2 O2 Flow FiO2 Time Delivery Rate 12/09/18 97.4 55 19 142/76 95 15:06 (98) 12/09/18 2.0 09:10 12/09/18 Nasal 08:10 Cannula 12/08/18 28 01:02 Intake and Output 12/08/18 12/08/18 12/09/18 1515:00 23:00 07:00 IntakeIntake Total 350 ml 290 ml 375 ml OutputOutput Total 1100 ml 900 ml BalanceBalance 350 ml -810 ml -525 ml Exam General: Patient is laying in bed, on nasal cannula. remains restrained but calm Mentation: Patient is alert and oriented x1 Neck: Supple, nontender, midline Respiratory: Diminished bilaterally. no wheezing Cardiovascular: regular rhythm, bradycardia, no obvious murmurs Gastrointestinal: soft, non-tender to palpation, nondistended, bowel sounds heard. Ext: Moves all extremities spontaneously Skin: No new skin lesions Results Results 24hrs Laboratory Tests Test 12/09/18 05:15 White Blood Count 7.3 Red Blood Count 3.66 L Hemoglobin 11.1 L Hematocrit 33.8 L Mean Corpuscular Volume 92.3 Mean Corpuscular Hemoglobin 30.3 Mean Corpuscular Hemoglobin Concent 32.8 Red Cell Distribution Width 14.6 H Platelet Count 445 H Mean Platelet Volume 11.0 H Immature Granulocytes % 2.100 H Neutrophils % 66.9 Lymphocytes % 20.4 Monocytes % 4.0 Eosinophils % 5.5 Basophils % 1.1 Nucleated Red Blood Cells % 0.0 Immature Granulocytes # 0.150 H Neutrophils # 4.9 Lymphocytes # 1.5 Monocytes # 0.3 Eosinophils # 0.4 Basophils # 0.1 Nucleated Red Blood Cells # 0.0 Sodium Level 141 Potassium Level 3.6 Chloride Level 111 H Carbon Dioxide Level 24 Anion Gap 6 Blood Urea Nitrogen 4 L Creatinine 0.90 Est Glomerular Filtrat Rate mL/min Glucose Level 91 Calcium Level 8.4 Phosphorus Level 2.6 Magnesium Level 2.1 Medications Medication Current Medications Acetaminophen (Tylenol Tab) 650 mg Q4H PRN PO MILD PAIN LEVEL 1-3 Last administered on 12/03/18at 17:07; Admin Dose 650 MG; Start 12/01/18 at 16:30 Bisacodyl (Dulcolax) 10 mg Q24H PRN PO CONSTIPATION; Start 12/01/18 at 16:30 Magnesium Hydroxide (Milk Of Mag) 30 ml Q24H PO Last administered on 12/08/18at 16:44; Admin Dose 30 ML; Start 12/01/18 at 16:30 IV Flush (NS 3 ml) 3 ml PER PROTOCOL IV ; Start 12/01/18 at 16:30 Ondansetron HCl (Zofran Inj) 4 mg Q6H PRN IV NAUSEA/VOMITING; Start 12/01/18 at 16:30 Docusate Sodium (Colace) 100 mg Q12H PRN PO .CONSTIPATION; Start 12/01/18 at 16:30 Magnesium Hydroxide (Milk Of Mag) 30 ml DAILY PRN PO .CONSTIPATION; Start 12/01/18 at 16:30 Enoxaparin Sodium (Lovenox) 30 mg DAILY SC Last administered on 12/09/18at 10:12; Admin Dose 30 MG; Start 12/02/18 at 09:00 Albuterol (Proventil 0.083% (Neb)) 2.5 mg Q2H RESP THERAPY PRN HHN SHORTNESS OF BREATH; Start 12/01/18 at 18:00 Valproate Sodium 125 mg/Sodium Chloride 51.25 ml @ 55 mls/hr QHS IVPB Last administered on 12/08/18at 20:39; Admin Dose 55 MLS/HR; Start 12/02/18 at 21:00 Multivitamins (Multivitamin) 30 ml DAILY GTB Last administered on 12/09/18at 09:51; Admin Dose 30 ML; Start 12/03/18 at 12:00 Ferrous Sulfate (Feosol Liquid Cup) 300 mg DAILY NGT Last administered on 12/09/18at 09:51; Admin Dose 300 MG; Start 12/03/18 at 12:00 Labetalol HCl (Labetalol) 10 mg Q4H PRN IV sbp >160; Start 12/04/18 at 09:30 Dextrose/Sodium Chloride 1,000 ml @ 50 mls/hr Q20H IV Last administered on 12/09/18at 01:51; Admin Dose 50 MLS/HR; Start 12/05/18 at 17:00 Amiodarone HCl (Cordarone) 200 mg DAILY NGT Last administered on 12/09/18at 09 :51; Admin Dose 200 MG; Start 12/07/18 at 09:00 Ceftriaxone Sodium 50 ml @ 100 mls/hr Q24H IVPB Last administered on 12/09/18at 15:29; Admin Dose 100 MLS/HR; Start 12/07/18 at 14:30; Stop 12/14/18 at 14:29 CATHERINE RENAE MD Dec 09, 2018 16:21
--- NOTE | 2018-12-09 16:52 | PN ---
Date/Time of Note Date/Time of Note DATE: 12/09/18 TIME: 16:51 Assessment/Plan Lines/Catheters IV Catheter Type (from Nrsg): Saline Lock Trent in Place (from Nrsg): Yes Assessment/Plan Assessment/Plan Septic shock, off IV pressor Paroxysmal atrial flutter, currently sinus rhythm Encephalopathy Renal dysfunction Abdominal aortic aneurysm 7 cm no signs of leak or rupture or dissection at this time the patient is not a candidate to undergo abdominal aortic aneurysm repair because of multiple medical problems including sepsis with monitor the patient when patient's clinical condition improved will need cardiology evaluation prior to undergoing endovascular repair of abdominal aortic aneurysm Discussed with the referring physicians Subjective 24 Hr Interval Summary Constitutional: improved Pain Control: mild Exam/Review of Systems Vital Signs Vitals Vital Signs Date Temp Pulse Resp B/P (MAP) Pulse Ox O2 O2 Flow FiO2 Time Delivery Rate 12/09/18 97.4 55 19 142/76 95 15:06 (98) 12/09/18 2.0 09:10 12/09/18 Nasal 08:10 Cannula 12/08/18 28 01:02 Intake and Output 12/08/18 12/08/18 12/09/18 1515:00 23:00 07:00 IntakeIntake Total 350 ml 290 ml 375 ml OutputOutput Total 1100 ml 900 ml BalanceBalance 350 ml -810 ml -525 ml Exam Head: normocephalic, atraumatic Eyes: nl conjunctiva, EOMI, nl lids, nl sclera ENMT: nl external ears & nose, nl lips & teeth, nl nasal mucosa & septum, mucosa pink and moist Neck: supple, non-tender Respiratory: clear to auscultation, normal air movement Cardiovascular: regular rate and rhythm, nl pulses Gastrointestinal: soft, nl liver, spleen, non-tender Musculoskeletal: nl extremities to inspection, nl gait and stance Results Result Diagram: 12/09/18 0515 12/09/18 0515 DAVID CERDA MD Dec 09, 2018 16:52
[2018-12-09] MEDS: MAGNESIUM HYDROXIDE 30ML CUP PO SCH (17:00)
--- NOTE | 2018-12-09 17:09 | CONS ---
Assessment/Plan Assessment/Plan Hospital Course (Demo Recall) Septic shock, off IV pressor Paroxysmal atrial flutter, currently sinus rhythm Encephalopathy Renal dysfunction Respiratory failure Currently SR DC amiodarone given bradycardia and remains SR Diuretics as needed AB as per ID Consultation Date/Type/Reason Admit Date/Time Dec 01, 2018 at 17:12 Initial Consult Date 12/02/18 Type of Consult Cardiology Requesting Provider: QASIM HWANG Date/Time of Note DATE: 12/09/18 TIME: 17:08 24 HR Interval Summary Free Text/Dictation seen and examined Exam/Review of Systems Vital Signs Vitals Vital Signs Date Temp Pulse Resp B/P (MAP) Pulse Ox O2 O2 Flow FiO2 Time Delivery Rate 12/09/18 97.4 55 19 142/76 95 15:06 (98) 12/09/18 2.0 09:10 12/09/18 Nasal 08:10 Cannula 12/08/18 28 01:02 Intake and Output 12/08/18 12/08/18 12/09/18 1515:00 23:00 07:00 IntakeIntake Total 350 ml 290 ml 375 ml OutputOutput Total 1100 ml 900 ml BalanceBalance 350 ml -810 ml -525 ml Exam Constitutional: alert (confused) Head: normocephalic Respiratory: other (course bs, no wheeze) Cardiovascular: regular rate and rhythm (s1s2) Gastrointestinal: soft, non-tender, bowel sounds Extremities: edema (no) Labs Result Diagram: 12/09/18 0515 12/09/18 0515 Results 24hrs Laboratory Tests Test 12/09/18 05:15 White Blood Count 7.3 Red Blood Count 3.66 L Hemoglobin 11.1 L Hematocrit 33.8 L Mean Corpuscular Volume 92.3 Mean Corpuscular Hemoglobin 30.3 Mean Corpuscular Hemoglobin Concent 32.8 Red Cell Distribution Width 14.6 H Platelet Count 445 H Mean Platelet Volume 11.0 H Immature Granulocytes % 2.100 H Neutrophils % 66.9 Lymphocytes % 20.4 Monocytes % 4.0 Eosinophils % 5.5 Basophils % 1.1 Nucleated Red Blood Cells % 0.0 Immature Granulocytes # 0.150 H Neutrophils # 4.9 Lymphocytes # 1.5 Monocytes # 0.3 Eosinophils # 0.4 Basophils # 0.1 Nucleated Red Blood Cells # 0.0 Sodium Level 141 Potassium Level 3.6 Chloride Level 111 H Carbon Dioxide Level 24 Anion Gap 6 Blood Urea Nitrogen 4 L Creatinine 0.90 Est Glomerular Filtrat Rate mL/min Glucose Level 91 Calcium Level 8.4 Phosphorus Level 2.6 Magnesium Level 2.1 Medications Medications Current Medications Acetaminophen (Tylenol Tab) 650 mg Q4H PRN PO MILD PAIN LEVEL 1-3 Last administered on 12/03/18at 17:07; Admin Dose 650 MG; Start 12/01/18 at 16:30 Bisacodyl (Dulcolax) 10 mg Q24H PRN PO CONSTIPATION; Start 12/01/18 at 16:30 Magnesium Hydroxide (Milk Of Mag) 30 ml Q24H PO Last administered on 12/09/18at 17:00; Admin Dose 30 ML; Start 12/01/18 at 16:30 IV Flush (NS 3 ml) 3 ml PER PROTOCOL IV ; Start 12/01/18 at 16:30 Ondansetron HCl (Zofran Inj) 4 mg Q6H PRN IV NAUSEA/VOMITING; Start 12/01/18 at 16:30 Docusate Sodium (Colace) 100 mg Q12H PRN PO .CONSTIPATION; Start 12/01/18 at 16:30 Magnesium Hydroxide (Milk Of Mag) 30 ml DAILY PRN PO .CONSTIPATION; Start 12/01/18 at 16:30 Enoxaparin Sodium (Lovenox) 30 mg DAILY SC Last administered on 12/09/18at 10:12; Admin Dose 30 MG; Start 12/02/18 at 09:00 Albuterol (Proventil 0.083% (Neb)) 2.5 mg Q2H RESP THERAPY PRN HHN SHORTNESS OF BREATH; Start 12/01/18 at 18:00 Valproate Sodium 125 mg/Sodium Chloride 51.25 ml @ 55 mls/hr QHS IVPB Last administered on 12/08/18at 20:39; Admin Dose 55 MLS/HR; Start 12/02/18 at 21:00 Multivitamins (Multivitamin) 30 ml DAILY GTB Last administered on 12/09/18at 09:51; Admin Dose 30 ML; Start 12/03/18 at 12:00 Ferrous Sulfate (Feosol Liquid Cup) 300 mg DAILY NGT Last administered on 12/09/18at 09:51; Admin Dose 300 MG; Start 12/03/18 at 12:00 Labetalol HCl (Labetalol) 10 mg Q4H PRN IV sbp >160; Start 12/04/18 at 09:30 Dextrose/Sodium Chloride 1,000 ml @ 50 mls/hr Q20H IV Last administered on 12/09/18at 01:51; Admin Dose 50 MLS/HR; Start 12/05/18 at 17:00 Amiodarone HCl (Cordarone) 200 mg DAILY NGT Last administered on 12/09/18at 09: 51; Admin Dose 200 MG; Start 12/07/18 at 09:00 Ceftriaxone Sodium 50 ml @ 100 mls/hr Q24H IVPB Last administered on 12/09/18at 15:29; Admin Dose 100 MLS/HR; Start 12/07/18 at 14:30; Stop 12/14/18 at 14:29 Manoj Biggs DO Dec 09, 2018 17:09
[2018-12-09] MEDS ORDERED: HALOPERIDOL 5 MG INJ IM ONE (21:00)
[2018-12-09] MEDS ORDERED: LORAZEPAM 2 MG INJ IM ONE (21:00)
[2018-12-09] MEDS: VALPROATE INJ 125 MG in SOD CHLORIDE 0.9% 50 ML IVPB SCH (21:06)
[2018-12-10 00:11] VITALS: BP 129/59; PULSE 68; RESP 20
[2018-12-10 04:19] VITALS: BP 126/67; PULSE 62; RESP 20
[2018-12-10 07:15] VITALS: BP 109/70; PULSE 62; RESP 19
[2018-12-10] MEDS: AMIODARONE 200 MG TAB NGT SCH (07:22)
[2018-12-10] MEDS: FERROUS SULFATE 60 MG/ML 5ML CUP NGT SCH (08:28)
[2018-12-10] MEDS: MULTIVITAMINS 30 ML CUP GTB SCH (08:28)
[2018-12-10] MEDS: ENOXAPARIN 30 MG/0.3 ML SYG SC SCH (08:45)
--- NOTE | 2018-12-10 11:29 | CONS ---
Assessment/Plan Assessment/Plan Assessment/Plan (Daily) 1. acute hypernatremia, due to free water deficit 2. septic shock due to PNA/UTI/bacteremia 3 acute UTI 4.acute hyoxic respiratory failure s/p BIPAP now 5. Acute on chronic encephalopathy 6. H/o HTN, CAD, dementia, depression, HLD, and osteoarthritis 7. Anemia of CKD with Iron deficiency Plan: BUN/Cr improved to normal 4/0.96, , Other electrolytes stable - d/c IVF Today,En courage PO intake, COntinue thick nector liquids s/p IV ferrlecit 125 mg IV daily x 5 days for iron deficiency IV abx ceftriaxone for 7 days, Renally dose all abx and monitor electorlytes will continue to follow up Consultation Date/Type/Reason Admit Date/Time Dec 01, 2018 at 17:12 Initial Consult Date 12/03/18 Type of Consult NEPHROLOGY Requesting Provider: QASIM HWANG Date/Time of Note DATE: 12/10/18 TIME: 11:27 Exam/Review of Systems Exam Vitals Vital Signs Date Temp Pulse Resp B/P (MAP) Pulse Ox O2 O2 Flow FiO2 Time Delivery Rate 12/10/18 97.9 62 19 109/70 96 07:15 (83) 12/10/18 2.0 06:05 12/09/18 Nasal 20:07 Cannula 12/08/18 28 01:02 Intake and Output 12/09/18 12/09/18 12/10/18 1515:00 23:00 07:00 IntakeIntake Total 360 ml 1100 ml OutputOutput Total 1200 ml BalanceBalance 360 ml 1100 ml -1200 ml Exam Constitutional: no acute distress Head: normocephalic Neck: supple, non-tender Respiratory: congested cough, diminished breath sounds Cardiovascular: regular rate and rhythm, nl pulses Gastrointestinal: soft Extremities: normal pulses Neurological: Non focal Results Result Diagram: 12/10/18 0530 12/10/18 0530 Results 24hrs Laboratory Tests Test 12/10/18 05:30 White Blood Count 6.6 Red Blood Count 3.53 L Hemoglobin 10.7 L Hematocrit 32.5 L Mean Corpuscular Volume 92.1 Mean Corpuscular Hemoglobin 30.3 Mean Corpuscular Hemoglobin Concent 32.9 Red Cell Distribution Width 15.0 H Platelet Count 440 H Mean Platelet Volume 10.9 H Immature Granulocytes % 1.400 H Neutrophils % 70.5 Lymphocytes % 18.1 Monocytes % 5.0 Eosinophils % 4.1 Basophils % 0.9 Nucleated Red Blood Cells % 0.0 Immature Granulocytes # 0.090 H Neutrophils # 4.7 Lymphocytes # 1.2 Monocytes # 0.3 Eosinophils # 0.3 Basophils # 0.1 Nucleated Red Blood Cells # 0.0 Sodium Level 139 Potassium Level 3.6 Chloride Level 111 H Carbon Dioxide Level 23 Anion Gap 5 Blood Urea Nitrogen 4 L Creatinine 0.96 Glucose Level 93 Calcium Level 8.3 L Phosphorus Level 2.7 Magnesium Level 2.2 Albumin 2.7 L Medications Medication Current Medications Acetaminophen (Tylenol Tab) 650 mg Q4H PRN PO MILD PAIN LEVEL 1-3 Last administered on 12/03/18at 17:07; Admin Dose 650 MG; Start 12/01/18 at 16:30 Bisacodyl (Dulcolax) 10 mg Q24H PRN PO CONSTIPATION; Start 12/01/18 at 16:30 Magnesium Hydroxide (Milk Of Mag) 30 ml Q24H PO Last administered on 12/09/18at 17:00; Admin Dose 30 ML; Start 12/01/18 at 16:30 IV Flush (NS 3 ml) 3 ml PER PROTOCOL IV ; Start 12/01/18 at 16:30 Ondansetron HCl (Zofran Inj) 4 mg Q6H PRN IV NAUSEA/VOMITING; Start 12/01/18 at 16:30 Docusate Sodium (Colace) 100 mg Q12H PRN PO .CONSTIPATION; Start 12/01/18 at 16:30 Magnesium Hydroxide (Milk Of Mag) 30 ml DAILY PRN PO .CONSTIPATION; Start 12/01/18 at 16:30 Enoxaparin Sodium (Lovenox) 30 mg DAILY SC Last administered on 12/10/18at 08:45; Admin Dose 30 MG; Start 12/02/18 at 09:00 Albuterol (Proventil 0.083% (Neb)) 2.5 mg Q2H RESP THERAPY PRN HHN SHORTNESS OF BREATH; Start 12/01/18 at 18:00 Valproate Sodium 125 mg/Sodium Chloride 51.25 ml @ 55 mls/hr QHS IVPB Last administered on 12/09/18at 21:06; Admin Dose 55 MLS/HR; Start 12/02/18 at 21:00 Multivitamins (Multivitamin) 30 ml DAILY GTB Last administered on 12/10/18at 08:28; Admin Dose 30 ML; Start 12/03/18 at 12:00 Ferrous Sulfate (Feosol Liquid Cup) 300 mg DAILY NGT Last administered on 12/10/18at 08:28; Admin Dose 300 MG; Start 12/03/18 at 12:00 Labetalol HCl (Labetalol) 10 mg Q4H PRN IV sbp >160; Start 12/04/18 at 09:30 Ceftriaxone Sodium 50 ml @ 100 mls/hr Q24H IVPB Last administered on 12/09/18at 15:29; Admin Dose 100 MLS/HR; Start 12/07/18 at 14:30; Stop 12/14/18 at 14:29 SALAZAR MEDEL MD Dec 10, 2018 11:29
[2018-12-10 11:30] VITALS: BP 160/92; PULSE 72; RESP 19
--- NOTE | 2018-12-10 12:21 | PN ---
Date/Time of Note Date/Time of Note DATE: 12/10/18 TIME: 12:01 Assessment/Plan VTE Prophylaxis Risk score (from Nsg)>0 risk: 9 SCD applied (from Nsg): Yes Pharmacological prophylaxis: LMWH Lines/Catheters IV Catheter Type (from Nrsg): Central Line Central line still needed: No Urinary Cath still in place: Yes Reason Cath still needed: terminal illness/intractable pain Assessment/Plan Assessment/Plan 1. Septic shock secondary to UTI/bacteremia/PNA- resolving - Remains afebrile and WBC normal - ID on board and appreciate recommendations. Will need to continue antibiotics for 5 more days - E. coli and coag negative staph on initial blood cultures, with repeat negative 2. Bacteremia- resolving - E. coli and coag negative staph. repeat negative - Continue antibiotics per infectious disease recommendations 3. 7 cm abdominal aortic aneurysm - CT surgery consulted and patient high risk for surgical intervention - will continue with BP control - will need outpatient follow up 4. Acute hypoxic respiratory failure secondary to pneumonia, most likely aspiration - Pulm consultation appreciated - aspiration precautions - cont abx per ID recs 5. Acute on chronic encephalopathy, resolving - appears back to baseline - CT head only shows chronic infarct - Encephalopathy is likely due to bacteremia and UTI. 7. Arrhythmia, likely afib-aflutter - seen on EKG - Cardiology consultation appreciated - ECHO noted 8. MORTEZA - Resolved - appreciate Nephrology consultation - Continue volume status, monitor closely, 9. Hypernatremia- resolved 10. UTI - UA and cultures noted 11. Hypertension - BP stable 12. Dementia- stable - at baseline 13. Disposition - medically stable for discharge to [facility] Result Diagram: 12/10/18 0530 12/10/18 0530 Results 24hrs Laboratory Tests Test 12/10/18 05:30 White Blood Count 6.6 Red Blood Count 3.53 L Hemoglobin 10.7 L Hematocrit 32.5 L Mean Corpuscular Volume 92.1 Mean Corpuscular Hemoglobin 30.3 Mean Corpuscular Hemoglobin Concent 32.9 Red Cell Distribution Width 15.0 H Platelet Count 440 H Mean Platelet Volume 10.9 H Immature Granulocytes % 1.400 H Neutrophils % 70.5 Lymphocytes % 18.1 Monocytes % 5.0 Eosinophils % 4.1 Basophils % 0.9 Nucleated Red Blood Cells % 0.0 Immature Granulocytes # 0.090 H Neutrophils # 4.7 Lymphocytes # 1.2 Monocytes # 0.3 Eosinophils # 0.3 Basophils # 0.1 Nucleated Red Blood Cells # 0.0 Sodium Level 139 Potassium Level 3.6 Chloride Level 111 H Carbon Dioxide Level 23 Anion Gap 5 Blood Urea Nitrogen 4 L Creatinine 0.96 Glucose Level 93 Calcium Level 8.3 L Phosphorus Level 2.7 Magnesium Level 2.2 Albumin 2.7 L Subjective 24 Hr Interval Summary Free Text/Dictation Patient was given ativan last night due to pulling out his IV line. Calm this am and oriented to self. Answering simple commands. Exam/Review of Systems Exam Vitals Vital Signs Date Temp Pulse Resp B/P (MAP) Pulse Ox O2 O2 Flow FiO2 Time Delivery Rate 12/10/18 98.0 72 19 160/92 93 11:30 (114) 12/10/18 2.0 06:05 12/09/18 Nasal 20:07 Cannula 12/08/18 28 01:02 Intake and Output 12/09/18 12/09/18 12/10/18 1515:00 23:00 07:00 IntakeIntake Total 360 ml 1100 ml OutputOutput Total 1200 ml BalanceBalance 360 ml 1100 ml -1200 ml Exam General: Patient is laying in bed, no acute distress. answering simple questions Mentation: Patient is alert and oriented x1 Neck: Supple Respiratory: Diminished bilaterally. no wheezing Cardiovascular: regular rhythm, bradycardia, no obvious murmurs Gastrointestinal: soft, non-tender to palpation, nondistended, bowel sounds heard. Ext: Moves all extremities spontaneously Skin: No new skin lesions Results Results 24hrs Laboratory Tests Test 12/10/18 05:30 White Blood Count 6.6 Red Blood Count 3.53 L Hemoglobin 10.7 L Hematocrit 32.5 L Mean Corpuscular Volume 92.1 Mean Corpuscular Hemoglobin 30.3 Mean Corpuscular Hemoglobin Concent 32.9 Red Cell Distribution Width 15.0 H Platelet Count 440 H Mean Platelet Volume 10.9 H Immature Granulocytes % 1.400 H Neutrophils % 70.5 Lymphocytes % 18.1 Monocytes % 5.0 Eosinophils % 4.1 Basophils % 0.9 Nucleated Red Blood Cells % 0.0 Immature Granulocytes # 0.090 H Neutrophils # 4.7 Lymphocytes # 1.2 Monocytes # 0.3 Eosinophils # 0.3 Basophils # 0.1 Nucleated Red Blood Cells # 0.0 Sodium Level 139 Potassium Level 3.6 Chloride Level 111 H Carbon Dioxide Level 23 Anion Gap 5 Blood Urea Nitrogen 4 L Creatinine 0.96 Glucose Level 93 Calcium Level 8.3 L Phosphorus Level 2.7 Magnesium Level 2.2 Albumin 2.7 L Medications Medication Current Medications Acetaminophen (Tylenol Tab) 650 mg Q4H PRN PO MILD PAIN LEVEL 1-3 Last administered on 12/03/18at 17:07; Admin Dose 650 MG; Start 12/01/18 at 16:30 Bisacodyl (Dulcolax) 10 mg Q24H PRN PO CONSTIPATION; Start 12/01/18 at 16:30 Magnesium Hydroxide (Milk Of Mag) 30 ml Q24H PO Last administered on 12/09/18at 17:00; Admin Dose 30 ML; Start 12/01/18 at 16:30 IV Flush (NS 3 ml) 3 ml PER PROTOCOL IV ; Start 12/01/18 at 16:30 Ondansetron HCl (Zofran Inj) 4 mg Q6H PRN IV NAUSEA/VOMITING; Start 12/01/18 at 16:30 Docusate Sodium (Colace) 100 mg Q12H PRN PO .CONSTIPATION; Start 12/01/18 at 16:30 Magnesium Hydroxide (Milk Of Mag) 30 ml DAILY PRN PO .CONSTIPATION; Start 12/01/18 at 16:30 Enoxaparin Sodium (Lovenox) 30 mg DAILY SC Last administered on 12/10/18at 08:45; Admin Dose 30 MG; Start 12/02/18 at 09:00 Albuterol (Proventil 0.083% (Neb)) 2.5 mg Q2H RESP THERAPY PRN HHN SHORTNESS OF BREATH; Start 12/01/18 at 18:00 Valproate Sodium 125 mg/Sodium Chloride 51.25 ml @ 55 mls/hr QHS IVPB Last administered on 12/09/18at 21:06; Admin Dose 55 MLS/HR; Start 12/02/18 at 21:00 Multivitamins (Multivitamin) 30 ml DAILY GTB Last administered on 12/10/18at 08:28; Admin Dose 30 ML; Start 12/03/18 at 12:00 Ferrous Sulfate (Feosol Liquid Cup) 300 mg DAILY NGT Last administered on 12/10/18at 08:28; Admin Dose 300 MG; Start 12/03/18 at 12:00 Labetalol HCl (Labetalol) 10 mg Q4H PRN IV sbp >160; Start 12/04/18 at 09:30 Ceftriaxone Sodium 50 ml @ 100 mls/hr Q24H IVPB Last administered on 12/09/18at 15:29; Admin Dose 100 MLS/HR; Start 12/07/18 at 14:30; Stop 12/14/18 at 14:29 CATHERINE RENAE MD Dec 10, 2018 12:20
--- NOTE | 2018-12-10 12:34 | PDOCDIS ---
Discharge Instructions DIAGNOSIS Discharge Diagnosis 1. Septic shock secondary to UTI/bacteremia/PNA- resolving 2. Bacteremia- resolving 3. 7 cm abdominal aortic aneurysm 4. Acute hypoxic respiratory failure secondary to pneumonia, most likely aspiration 5. Acute on chronic encephalopathy, resolved 7. Arrhythmia, likely afib-aflutter- resolved 8. MORTEZA- Resolved 9. Hypernatremia- resolved 10. UTI- treated 11. Hypertension 12. Dementia- stable CONDITION [id number] Patient Condition: [id number] Stable HOME CARE INSTRUCTIONS: [id number] Diet Instructions: [id number] Low Fat /Cholesterol ACTIVITY: [id number] Activity Restrictions: [id number] No Restrictions FOLLOW UP/APPOINTMENTS Follow-up Plan 1. Follow up with your primary care physician in 1-2 weeks 2. You will need to follow up with a vascular surgeon given abdominal aortic aneurysm and will need Cardiac clearance prior to the procedure. You were too sick in the hospital to undergo the procedure and need to complete 5 more days of antibiotics as well 3. Continue all medications as prescribed 4. You need to continue on Rocephin until 12/14 for treatment of UTI, infection in your blood that cleared on repeat cultures, and pneumonia 5. If experiencing any concerning symptoms. please go to the nearest emergency department REFERRALS Other Referrals Chandu Stallworth MD Specialty Cardiothoracic Surgery Comments Office Address [id number] [place] [id number] Office Manoj Biggs, Specialty Interventional Cardiology Comments Office Address [facility] [address] [place] [address] Office CATHERINE RENAE MD Dec 10, 2018 12:34
--- NOTE | 2018-12-10 12:50 | CONS ---
Consult Date/Type/Reason Admit Date/Time Dec 01, 2018 at 17:12 Initial Consult Date 12/05/18 Type of Consult Pulmonary Requesting Provider: QASIM HWANG Date/Time of Note DATE: 12/10/18 TIME: 12:50 Subjective Patient appears stable this morning no respiratory distress. Objective Vital Signs Date Temp Pulse Resp B/P (MAP) Pulse Ox O2 O2 Flow FiO2 Time Delivery Rate 12/10/18 98.0 72 19 160/92 93 11:30 (114) 12/10/18 2.0 06:05 12/09/18 Nasal 20:07 Cannula 12/08/18 28 01:02 Intake and Output 12/09/18 12/09/18 12/10/18 1515:00 23:00 07:00 IntakeIntake Total 360 ml 1100 ml OutputOutput Total 1200 ml BalanceBalance 360 ml 1100 ml -1200 ml Exam GENERAL: VITAL SIGNS: per chart NECK: Supple. No JVD or lymphadenopathy. CARDIAC EXAM: S1, S2. No added sounds or murmurs. CHEST: clear bilaterally, No added sounds, rales or wheezes ABDOMEN: Soft, nontender. No guarding or rebound. EXTREMITIES: No cyanosis, clubbing or edema. NEUROLOGIC: Generalized weakness. No focal deficits. Elderly appearing gentleman in no acute distress appears comfortable at rest Vent Setting Fraction of Inspired Oxygen pe: 28 Results/Medications Result Diagram: 12/10/18 0530 12/10/18 0530 Results 24 hrs Laboratory Tests Test 12/10/18 05:30 White Blood Count 6.6 Red Blood Count 3.53 L Hemoglobin 10.7 L Hematocrit 32.5 L Mean Corpuscular Volume 92.1 Mean Corpuscular Hemoglobin 30.3 Mean Corpuscular Hemoglobin Concent 32.9 Red Cell Distribution Width 15.0 H Platelet Count 440 H Mean Platelet Volume 10.9 H Immature Granulocytes % 1.400 H Neutrophils % 70.5 Lymphocytes % 18.1 Monocytes % 5.0 Eosinophils % 4.1 Basophils % 0.9 Nucleated Red Blood Cells % 0.0 Immature Granulocytes # 0.090 H Neutrophils # 4.7 Lymphocytes # 1.2 Monocytes # 0.3 Eosinophils # 0.3 Basophils # 0.1 Nucleated Red Blood Cells # 0.0 Sodium Level 139 Potassium Level 3.6 Chloride Level 111 H Carbon Dioxide Level 23 Anion Gap 5 Blood Urea Nitrogen 4 L Creatinine 0.96 Glucose Level 93 Calcium Level 8.3 L Phosphorus Level 2.7 Magnesium Level 2.2 Albumin 2.7 L Medications Current Medications Acetaminophen (Tylenol Tab) 650 mg Q4H PRN PO MILD PAIN LEVEL 1-3 Last administered on 12/03/18at 17:07; Admin Dose 650 MG; Start 12/01/18 at 16:30 Bisacodyl (Dulcolax) 10 mg Q24H PRN PO CONSTIPATION; Start 12/01/18 at 16:30 Magnesium Hydroxide (Milk Of Mag) 30 ml Q24H PO Last administered on 12/09/18at 17:00; Admin Dose 30 ML; Start 12/01/18 at 16:30 IV Flush (NS 3 ml) 3 ml PER PROTOCOL IV ; Start 12/01/18 at 16:30 Ondansetron HCl (Zofran Inj) 4 mg Q6H PRN IV NAUSEA/VOMITING; Start 12/01/18 at 16:30 Docusate Sodium (Colace) 100 mg Q12H PRN PO .CONSTIPATION; Start 12/01/18 at 16:30 Magnesium Hydroxide (Milk Of Mag) 30 ml DAILY PRN PO .CONSTIPATION; Start 12/01/18 at 16:30 Enoxaparin Sodium (Lovenox) 30 mg DAILY SC Last administered on 12/10/18at 08:45; Admin Dose 30 MG; Start 12/02/18 at 09:00 Albuterol (Proventil 0.083% (Neb)) 2.5 mg Q2H RESP THERAPY PRN HHN SHORTNESS OF BREATH; Start 12/01/18 at 18:00 Valproate Sodium 125 mg/Sodium Chloride 51.25 ml @ 55 mls/hr QHS IVPB Last administered on 12/09/18at 21:06; Admin Dose 55 MLS/HR; Start 12/02/18 at 21:00 Multivitamins (Multivitamin) 30 ml DAILY GTB Last administered on 12/10/18at 08:28; Admin Dose 30 ML; Start 12/03/18 at 12:00 Ferrous Sulfate (Feosol Liquid Cup) 300 mg DAILY NGT Last administered on 12/10/18at 08:28; Admin Dose 300 MG; Start 12/03/18 at 12:00 Labetalol HCl (Labetalol) 10 mg Q4H PRN IV sbp >160; Start 12/04/18 at 09:30 Ceftriaxone Sodium 50 ml @ 100 mls/hr Q24H IVPB Last administered on 12/09/18at 15:29; Admin Dose 100 MLS/HR; Start 12/07/18 at 14:30; Stop 12/14/18 at 14:29 Assessment/Plan Hospital Course (Demo Recall) Assessment 1. Status post E. coli severe sepsis secondary to UTI 2. Resolving pneumonia with hypoxemic respiratory failure 3. History of seizure disorder 4. Electrolyte imbalance 5. Bradycardia questionable sick sinus syndrome Plan 1. Aspiration precautions 2. Continue antibiotics consider de-escalation 3. Aspiration precautions 4. DVT GI prophylaxis 5. Cardiology evaluation and recommendations Discharge planning okay from pulmonary standpoint FILIBERTO JAUREGUI MD, [facility] Dec 10, 2018 12:50
--- NOTE | 2018-12-10 13:45 | CONS ---
Assessment/Plan Assessment/Plan Hospital Course (Demo Recall) SUBJECTIVE: looka comfortable, no fevers INDWELLINGS: The patient has Trent catheter and a right chest triple-lumen catheter. ANTIMICROBIALS: Rocephin PHYSICAL EXAMINATION: GENERAL: This is a chronically ill-appearing, elderly man who is in no distress. HEENT: Head atraumatic, normocephalic. NECK: Supple. CHEST: Rise symmetrical. Breath sounds diminished to bases. HEART: S1, S2. ABDOMEN: Soft, bowel tones present. EXTREMITIES: Without cyanosis. ASSESSMENT: 1. Status post septic shock. 2. Escherichia coli urinary tract infection with bacteremia. 3. Pneumonia, possibly aspiration. 4. Coagulase-negative staph bacteremia consistent with contaminant. 5. Abdominal aortic aneurysm, vascular surgery on case. 6. Resolving transaminitis. 7. Status post rapid atrial fibrillation. PLAN: Stable, continue abx for 5 more days Consultation Date/Type/Reason Admit Date/Time Dec 01, 2018 at 17:12 Initial Consult Date 12/02/18 Type of Consult id Requesting Provider: QASIM HWANG Date/Time of Note DATE: 12/10/18 TIME: 13:45 Exam/Review of Systems Exam Vitals Vital Signs Date Temp Pulse Resp B/P (MAP) Pulse Ox O2 O2 Flow FiO2 Time Delivery Rate 12/10/18 98.0 72 19 160/92 93 11:30 (114) 12/10/18 2.0 06:05 12/09/18 Nasal 20:07 Cannula 12/08/18 28 01:02 Intake and Output 12/09/18 12/09/18 12/10/18 1515:00 23:00 07:00 IntakeIntake Total 360 ml 1100 ml OutputOutput Total 1200 ml BalanceBalance 360 ml 1100 ml -1200 ml Results Result Diagram: 12/10/18 0530 12/10/18 0530 Results 24hrs Laboratory Tests Test 12/10/18 05:30 White Blood Count 6.6 Red Blood Count 3.53 L Hemoglobin 10.7 L Hematocrit 32.5 L Mean Corpuscular Volume 92.1 Mean Corpuscular Hemoglobin 30.3 Mean Corpuscular Hemoglobin Concent 32.9 Red Cell Distribution Width 15.0 H Platelet Count 440 H Mean Platelet Volume 10.9 H Immature Granulocytes % 1.400 H Neutrophils % 70.5 Lymphocytes % 18.1 Monocytes % 5.0 Eosinophils % 4.1 Basophils % 0.9 Nucleated Red Blood Cells % 0.0 Immature Granulocytes # 0.090 H Neutrophils # 4.7 Lymphocytes # 1.2 Monocytes # 0.3 Eosinophils # 0.3 Basophils # 0.1 Nucleated Red Blood Cells # 0.0 Sodium Level 139 Potassium Level 3.6 Chloride Level 111 H Carbon Dioxide Level 23 Anion Gap 5 Blood Urea Nitrogen 4 L Creatinine 0.96 Glucose Level 93 Calcium Level 8.3 L Phosphorus Level 2.7 Magnesium Level 2.2 Albumin 2.7 L Medications Medication Current Medications Acetaminophen (Tylenol Tab) 650 mg Q4H PRN PO MILD PAIN LEVEL 1-3 Last administered on 12/03/18at 17:07; Admin Dose 650 MG; Start 12/01/18 at 16:30 Bisacodyl (Dulcolax) 10 mg Q24H PRN PO CONSTIPATION; Start 12/01/18 at 16:30 Magnesium Hydroxide (Milk Of Mag) 30 ml Q24H PO Last administered on 12/09/18at 17:00; Admin Dose 30 ML; Start 12/01/18 at 16:30 IV Flush (NS 3 ml) 3 ml PER PROTOCOL IV ; Start 12/01/18 at 16:30 Ondansetron HCl (Zofran Inj) 4 mg Q6H PRN IV NAUSEA/VOMITING; Start 12/01/18 at 16:30 Docusate Sodium (Colace) 100 mg Q12H PRN PO .CONSTIPATION; Start 12/01/18 at 16:30 Magnesium Hydroxide (Milk Of Mag) 30 ml DAILY PRN PO .CONSTIPATION; Start 12/01/18 at 16:30 Enoxaparin Sodium (Lovenox) 30 mg DAILY SC Last administered on 12/10/18at 08:45; Admin Dose 30 MG; Start 12/02/18 at 09:00 Albuterol (Proventil 0.083% (Neb)) 2.5 mg Q2H RESP THERAPY PRN HHN SHORTNESS OF BREATH; Start 12/01/18 at 18:00 Valproate Sodium 125 mg/Sodium Chloride 51.25 ml @ 55 mls/hr QHS IVPB Last administered on 12/09/18at 21:06; Admin Dose 55 MLS/HR; Start 12/02/18 at 21:00 Multivitamins (Multivitamin) 30 ml DAILY GTB Last administered on 12/10/18at 08:28; Admin Dose 30 ML; Start 12/03/18 at 12:00 Ferrous Sulfate (Feosol Liquid Cup) 300 mg DAILY NGT Last administered on 12/10/18at 08:28; Admin Dose 300 MG; Start 12/03/18 at 12:00 Labetalol HCl (Labetalol) 10 mg Q4H PRN IV sbp >160; Start 12/04/18 at 09:30 Ceftriaxone Sodium 50 ml @ 100 mls/hr Q24H IVPB Last administered on 12/09/18at 15:29; Admin Dose 100 MLS/HR; Start 12/07/18 at 14:30; Stop 12/14/18 at 14:29 ALYSON FONTANEZ NP Dec 10, 2018 13:45
[2018-12-10] MEDS: CEFTRIAXONE 1 GM/50 ML (PMX) 50 ML IVPB SCH (14:16)
[2018-12-10 15:39] VITALS: BP 140/74; PULSE 76; RESP 19
[2018-12-10] MEDS: MAGNESIUM HYDROXIDE 30ML CUP PO SCH (16:25)
--- NOTE | 2018-12-10 17:59 | DS ---
Date/Time of Note Date/Time of Note DATE: 12/10/18 TIME: 17:50 Discharge Summary Admission/Discharge Info Admit Date/Time Dec 01, 2018 at 17:12 Discharge Date/Time Dec 10, 2018 at 17:06 Discharge Diagnosis 1. Septic shock secondary to UTI/bacteremia/PNA- resolving 2. Bacteremia- resolving 3. 7 cm abdominal aortic aneurysm 4. Acute hypoxic respiratory failure secondary to pneumonia, most likely aspiration 5. Acute on chronic encephalopathy, resolved 7. Arrhythmia, likely afib-aflutter- resolved 8. MORTEZA- Resolved 9. Hypernatremia- resolved 10. UTI- treated 11. Hypertension 12. Dementia- stable Patient Condition: Stable Consults Pulmonology- Dr. Romero Infectious disease- Dr. Metzger CT surgery- Dr. Stallworth Cardiology- Dr. Biggs Nephrology- Dr. Clark Hx of Present Illness 88 yo M with PMH HTN, CAD, dementia, depression, HLD, and osteoarthritis presented from SNF for shortness of breath and fevers. Patient is currently on BIPAP and unable to obtain history given severe dementia. Patient is noted to have no family and a bermeo of the [facility]. History obtained from ER physician and reviewed of SNF records. Patient was found to be febrile this am and given Tylenol with mild improvement. He was also noted to be hypoxic and dyspneic. Patient was placed on CPAP and transferred to ER. In the ED patient was noted with fever and tachycardia. He was unable to give any history and mouth contracted open. Per records patient usually takes PO. Patient was given adenosine as well as beta carlos with no improvement in rate. He remained on BiPAP and BP was slightly low with concern for possible shock. Hospital Course Patient was admitted to ICU for close monitoring given severe sepsis, respiratory disterss, and possible need for pressor support. He was started on IV antibiotics and ID was consulted for antibiotic management. Patient was also found in atrial fibrillation/flutter and Cardiology was consulted for recommendations. Nephrology was consulted given patient presented with MORTEZA. House cultures were performed and patient was found with UTI and bacteremia. Antibiotic adjustments were made with improvement in patients overall condition. Patient was evaluated by Speech therapy when mentation improved and was cleared for pureed diet. Patients repeat blood cultures returned negative and was continued on Rocephin for tx. Patient has an incidental findings on US and CT chest was ordered with findings of abdominal aortic aneurysm. CT surgery was consulted but given patients bacteremia and age, he would be high risk at present time for surgical intervention. Recommendations were made for outpatient follow up and Cardiology clearance prior to intervention. Patients mentation returned to baseline given acute encephalopathy at time of presentation. He did have periods of confusion and was pulling out his IV lines and early. He was placed in restraints to protect himself. patient was able to be weaned off restraints and remained calm. Vitals remained stable and patient was discharged back to SNF in stable condition to continue 5 more days of Rocephin IV. Home Meds Reported Medications Ascorbic Acid (Vitamin C) 500 Mg Tab, 500 MG PO DAILY, TAB 12/01/18 Amlodipine Besylate* (Norvasc*) 2.5 Mg Tablet, 2.5 MG PO DAILY, TAB HOLD FOR SBP<110 HR<60 12/01/18 Multivit-Min/Iron Fum/Folic AC (Cshmv-Nzhyojr-Fpmcndwf Tablet) 1 Each Tablet, 1 EACH PO DAILY, TAB 12/01/18 Magnesium Hydroxide* (Milk Of Magnesia*) 400 Mg/5 Ml Oral.susp, 30 ML PO Q24H for CONSTIPATION, ML 12/01/18 Mag Hydrox/Al Hydrox/Simeth (Maalox Advanced Suspension) 355 Ml Oral.susp, 30 ML PO Q4H 12/01/18 Ferrous Sulfate* (Ferrous Sulfate*) 325 Mg Tabec, 325 MG PO DAILY, TAB 12/01/18 Bisacodyl* (Dulcolax*) 5 Mg Tablet.dr, 10 MG PO Q24H PRN for CONSTIPATION, TAB 12/01/18 Divalproex Sodium* (Depakote* Sprinkle) 125 Mg Cap.sprink, 125 MG PO QHS, #90 CAP 12/01/18 Atorvastatin Calcium* (Atorvastatin Calcium*) 20 Mg Tablet, 20 MG PO QHS, #30 TAB 12/01/18 Acetaminophen* (Acetaminophen*) 325 Mg Tablet, 650 MG PO Q4H PRN for MILD PAIN LEVEL 1-3, #30 TAB AND TEMP 100F OR ABOVE 12/01/18 Follow-up Plan 1. Follow up with your primary care physician in 1-2 weeks 2. You will need to follow up with a vascular surgeon given abdominal aortic aneurysm and will need Cardiac clearance prior to the procedure. You were too sick in the hospital to undergo the procedure and need to complete 5 more days of antibiotics as well 3. Continue all medications as prescribed 4. You need to continue on Rocephin until 12/14 for treatment of UTI, infection in your blood that cleared on repeat cultures, and pneumonia 5. If experiencing any concerning symptoms. please go to the nearest emergency department Primary Care Provider Not On Staff Doctor Time spent on discharge: > 30 minutes Pending Labs Laboratory Tests Test 12/10/18 05:30 White Blood Count 6.6 10^3/ul (4.8-10.8) Red Blood Count 3.53 10^6/ul (4.70-6.10) Hemoglobin 10.7 g/dl (14.0-18.0) Hematocrit 32.5 % (42.0-52.0) Mean Corpuscular Volume 92.1 fl (82.0-101.0) Mean Corpuscular Hemoglobin 30.3 pg (29.0-33.0) Mean Corpuscular Hemoglobin Concent 32.9 g/dl (32.0-37.0) Red Cell Distribution Width 15.0 % (11.5-14.5) Platelet Count 440 10^3/UL (140-415) Mean Platelet Volume 10.9 fl (7.4-10.4) Immature Granulocytes % 1.400 % (0.001-0.429) Neutrophils % 70.5 % (39.0-77.0) Lymphocytes % 18.1 % (15.0-51.0) Monocytes % 5.0 % (0.0-11.0) Eosinophils % 4.1 % (0.0-7.0) Basophils % 0.9 % (0.0-2.0) Nucleated Red Blood Cells % 0.0 /100WBC (0.0-0.0) Immature Granulocytes # 0.090 10^3/ul (0.0-0.031) Neutrophils # 4.7 10^3/ul (1.6-7.5) Lymphocytes # 1.2 10^3/ul (0.8-2.9) Monocytes # 0.3 10^3/ul (0.3-0.9) Eosinophils # 0.3 10^3/ul (0.0-0.5) Basophils # 0.1 10^3/ul (0.0-0.1) Nucleated Red Blood Cells # 0.0 10^3/ul (0.0-0.0) Sodium Level 139 mmol/L (135-144) Potassium Level 3.6 mmol/L (3.5-5.1) Chloride Level 111 mmol/L (97-110) Carbon Dioxide Level 23 mmol/L (21-31) Anion Gap 5 (5-13) Blood Urea Nitrogen 4 mg/dl (7-20) Creatinine 0.96 mg/dl (0.61-1.24) Glucose Level 93 mg/dl (70-220) Calcium Level 8.3 mg/dl (8.4-10.2) Phosphorus Level 2.7 mg/dl (2.5-4.9) Magnesium Level 2.2 mg/dl (1.7-2.5) Albumin 2.7 g/dl (3.3-4.9) CATHERINE RENAE MD Dec 10, 2018 17:59
== END 2018-12-10 17:06 | DRG 871 ==
LOC: E/R 14:02 → ICU 17:12 → 6WM 12-06 14:53
PROVIDERS: ADMIT Internal Medicine; ATTEND Internal Medicine
PROC: 02HV33Z Insertion of Infusion Device into Superior Vena Cava, Percutaneous Approach (ICD-10-PCS; principal; 2018-12-01)
PROC: 5A09357 Assistance with Respiratory Ventilation, Less than 24 Consecutive Hours, Continuous Positive Airway Pressure (ICD-10-PCS; 2018-12-01)
DX: A41.51 Sepsis due to Escherichia coli [E. coli] (principal); R65.21 Severe sepsis with septic shock; J18.9 Pneumonia, unspecified organism; J96.01 Acute respiratory failure with hypoxia; G93.40 Encephalopathy, unspecified; N39.0 Urinary tract infection, site not specified; N17.9 Acute kidney failure, unspecified; E87.0 Hyperosmolality and hypernatremia; I48.92 Unspecified atrial flutter; F03.90 Unspecified dementia, unspecified severity, without behavioral disturbance, psychotic disturbance, mood disturbance, and anxiety; I48.91 Unspecified atrial fibrillation; I71.4 Abdominal aortic aneurysm, without rupture; I10 Essential (primary) hypertension; I25.10 Atherosclerotic heart disease of native coronary artery without angina pectoris; G40.909 Epilepsy, unspecified, not intractable, without status epilepticus; R94.5 Abnormal results of liver function studies; M19.90 Unspecified osteoarthritis, unspecified site
CPT/HCPCS: 36415; 36600; 70450; 71045; 71275; 75635; 76705; 76775; 80048; 80053; 80069; 80076; 80164; 80202; 81001; 82140; 82803; 83540; 83605; 83735; 83880; 84100; 84484; 85025; 85610; 85730; 87081; 87086; 92526; 92610; 93005; 93306; 93970; 94660; 96365; 96366; 96367; 96375; 97163; 97166; C1751; J0131; J0153; J0282; J0360; J0692; J0696; J1650; J2060; J2543; J2916; J3370; J3475; J3480; J7030; J7040; J7042; J7050; J7060; J7070; Q9967